=== PATIENT | female | born 1935 | race African-American/Black ===

== ENCOUNTER 2017-03-26 23:04 | Inpatient (IN) | payer OTHER ==
[~2017-03-26] VITALS: Ht 154.9 cm; Wt 103.9 kg
[2017-03-26 23:43] LABS: BASO # 0.1 x10^3/uL (0.0-0.2); BASO % 1 % (0-3); EOS % 3 % (0-3); HEMATOCRIT 41.5 % (36.0-47.0); HEMOGLOBIN 13.6 g/dL (12.0-15.5); LYMPH % 62 % (24-48); MEAN CORPUSCULAR HEMOGLOBIN 30 pg (25-35); MEAN CORPUSCULAR HGB CONC 33 g/dL (31-37); MEAN CORPUSCULAR VOLUME 93 fL (79-100); MONO % 5 % (0-9); NEUT % 30 % (31-73); PLATELET COUNT 327 x10^3/uL (140-400); RED BLOOD COUNT 4.48 x10^6/uL (3.50-5.40); RED CELL DISTRIBUTION WIDTH 14.5 % (11.5-14.5); WHITE BLOOD COUNT 11.3 x10^3/uL (4.0-11.0)
[2017-03-26 23:50] LABS: HCO3 ABG 24 mmol/L (21-28); PCO2 ABG 52 mmHg (35-46); PH ABG 7.29 (7.35-7.45); PO2 ABG 379 mmHg (65-108); SAT O2 ABG 99 % (92-99)
[2017-03-26 23:51] LABS: CALCIUM 8.4 mg/dL (8.5-10.1); GFR 64.4
[2017-03-26 23:56] LABS: ALBUMIN 3.2 g/dL (3.4-5.0); ALBUMIN/GLOBULIN RATIO 0.7 (1.0-1.7); TOTAL BILIRUBIN 0.4 mg/dL (0.2-1.0); TOTAL PROTEIN 7.8 g/dL (6.4-8.2)
[2017-03-26 23:57] LABS: FIO2 ABG 70
[2017-03-27] VITALS (24 sets, daily range): BP systolic 114–198; BP diastolic 75–110
[2017-03-27 00:13] LABS: % EOS 3 % (0-5); PLT ESTIMATE ADEQUATE (ADEQUATE)
[2017-03-27] MEDS ORDERED: MIDAZOLAM HCL/PF 5 MG/5 ML VIAL. ONE (00:13)
[2017-03-27] MEDS ORDERED: PROPOFOL 50 ML IV ONE ×4 (00:14→02:00)
[2017-03-27] MEDS ORDERED: PROPOFOL 10 MG/ML (20ML) VIAL. IV ONE ×2 (00:15)
--- NOTE | 2017-03-27 01:00 | ED.ADGEN ---
Adult General Chief Complaint Chief Complaint: DYSPNEA/RESPIRATOY DISTRESS HPI HPI Patient is a 83 year old woman, who presents to the emergency department via EMS as a Taina Zamudio in respiratory failure. Per EMS report, they were called to the patient's home with report of respiratory distress. Upon arrival, they found the patient had oxygen saturations in the 50s to the 70s, and responsive only to painful stimuli. Patient was initiated on BiPAP, and transported to the emergency department emergently. Upon arrival to the emergency part, patient is unresponsive to verbal and tactile stimuli, with rapid abdominal respirations, oxygen saturation is 99% on a breathing treatment with bag valve respirations for a cyst, blood pressures are 200s over 120s, heart rate is in the 130s. Patient emergently intubated upon arrival to the emergency department using rapid sequence intubation secondary to respiratory failure with altered mental status. EMS states they believe the patient's family is en route to the ED, they are uncertain who called them to the patient's home, it may have been either "a or a son". Patient does not have any identifying information with her, and EMS do not have a confirmation of the patient's name or additional history, although they do believe that she has history of COPD and possibly CHF. Blood glucose en route was 356. Review of Systems Review of Systems Unable to assess. Current Medications Current Medications Current Medications Medications (Trade) Dose Ordered Sig/Srikanth Start Time Stop Time Status Last Admin Dose Admin Fentanyl Citrate 30 ml @ 0 mls/hr CONT PRN PRN 03/26/17 23:30 Midazolam HCl (Versed) 5 mg STK-MED ONCE 03/27/17 00:13 03/27/17 00:14 DC Propofol 50 ml @ As Directed STK-MED ONCE 03/27/17 00:14 03/27/17 00:15 DC Propofol (Diprivan) 200 mg 1X ONCE 03/27/17 00:15 03/27/17 00:16 DC Allergies Allergies Allergies Coded Allergies Type Severity Reaction Last Updated Verified No Known Drug Allergies 03/27/17 No Physical Exam Physical Exam Constitutional: Well developed, well nourished, respiratory failure, unresponsive.. [] HENT: Normocephalic, atraumatic, bilateral external ears normal, oropharynx moist, no oral exudates, nose normal. [] Eyes: PERRLA, EOMI, conjunctiva normal, no discharge. [] Neck: Normal range of motion, no tenderness, supple, no stridor. [] Cardiovascular: Patient with soft regular heart rate, S1, S2, no S3. No rubs or gallops. Lungs & Thorax: Patient with coarse breath sounds, with rales noted diffusely bilaterally, also with wheezing.asses. [] Abdomen: Bowel sounds normal, soft, no tenderness, no masses, no pulsatile m Skin: Warm, dry, no erythema, no rash. [] Back: No tenderness, no CVA tenderness. [] Extremities: No tenderness, no cyanosis, no clubbing, ROM intact, no edema. [] Neurologic: GCS of 3 Psychologic: Unable to assess significant clinical condition Current Patient Data Vital Signs Vital Signs Date Time Temp Pulse Resp B/P (MAP) Pulse Ox O2 Delivery O2 Flow Rate FiO2 03/26/17 23:35 98 Ventilator Lab Values Laboratory Tests Test 03/26/17 23:24 03/26/17 23:31 White Blood Count 11.3 x10^3/uL (4.0-11.0) H Red Blood Count 4.48 x10^6/uL (3.50-5.40) Hemoglobin 13.6 g/dL (12.0-15.5) Hematocrit 41.5 % (36.0-47.0) Mean Corpuscular Volume 93 fL (79-100) Mean Corpuscular Hemoglobin 30 pg (25-35) Mean Corpuscular Hemoglobin Concent 33 g/dL (31-37) Red Cell Distribution Width 14.5 % (11.5-14.5) Platelet Count 327 x10^3/uL (140-400) Neutrophils (%) (Auto) 30 % (31-73) L Lymphocytes (%) (Auto) 62 % (24-48) H Monocytes (%) (Auto) 5 % (0-9) Eosinophils (%) (Auto) 3 % (0-3) Basophils (%) (Auto) 1 % (0-3) Neutrophils # (Auto) 3.4 x10^3uL (1.8-7.7) Lymphocytes # (Auto) 7.0 x10^3/uL (1.0-4.8) H Monocytes # (Auto) 0.5 x10^3/uL (0.0-1.1) Eosinophils # (Auto) 0.3 x10^3/uL (0.0-0.7) Basophils # (Auto) 0.1 x10^3/uL (0.0-0.2) Segmented Neutrophils % 28 % (35-66) L Band Neutrophils % 1 % (0-9) Lymphocytes % 64 % (24-48) H Monocytes % 4 % (0-10) Eosinophils % 3 % (0-5) Platelet Estimate Adequate (ADEQUATE) Sodium Level 136 mmol/L (136-145) Potassium Level 4.0 mmol/L (3.5-5.1) Chloride Level 102 mmol/L (98-107) Carbon Dioxide Level 23 mmol/L (21-32) Anion Gap 11 (6-14) Blood Urea Nitrogen 11 mg/dL (7-20) Creatinine 1.0 mg/dL (0.6-1.0) Estimated GFR (Cockcroft-Gault) 64.4 BUN/Creatinine Ratio 11 (6-20) Glucose Level 383 mg/dL (70-99) H Lactic Acid Level 4.2 mmol/L (0.4-2.0) *H Calcium Level 8.4 mg/dL (8.5-10.1) L Total Bilirubin 0.4 mg/dL (0.2-1.0) Aspartate Amino Transferase (AST) 64 U/L (15-37) H Alanine Aminotransferase (ALT) 69 U/L (14-59) H Alkaline Phosphatase 90 U/L (46-116) Troponin I Quantitative 0.041 ng/mL (0.000-0.055) NK-Bso-X-Type Natriuretic Peptide 138 pg/mL (0-449) Total Protein 7.8 g/dL (6.4-8.2) Albumin 3.2 g/dL (3.4-5.0) L Albumin/Globulin Ratio 0.7 (1.0-1.7) L O2 Saturation 99 % (92-99) Arterial Blood pH 7.29 (7.35-7.45) L Arterial Blood pCO2 at Patient Temp 52 mmHg (35-46) H Arterial Blood pO2 at Patient Temp 379 mmHg (65-108) H Arterial Blood HCO3 24 mmol/L (21-28) Arterial Blood Base Excess -3 mmol/L (-3-3) FiO2 70 Laboratory Tests 03/26/17 23:24 Laboratory Tests 03/26/17 23:24 EKG EKG EC: Heart rate 129 beats/minute, sinus tachycardia, QTC of 485, [place] 1:30, QRS of 78, patient with contour normality is noted in the anterior and lateral leads, does not meet STEMI criteria. As interpreted by me.[] Radiology/Procedures Radiology/Procedures Chest x-ray: One view:[Patient with ET tube in place, approximately 4 cm above the stanislwa, OG tube in place, terminating in the stomach, patient is mildly rotated, increased initial markings noted in the right lung base, and in the left upper lungs, however no significant infiltrates, effusions, pneumothorax, soft tissue or bony abnormalities identified. As interpreted by me. Course & Med Decision Making Course & Med Decision Making Pertinent Labs and Imaging studies reviewed. (See chart for details) Family not present, patient was intubated emergently as stated for respiratory failure. First pass success placement of ET tube per accompanying note. Confirmed placement x-ray, patient hypertensive, 200s over 120s, with heart rates in the 120s, remains unresponsive, propofol was initiated, oxygen saturations remained in the upper 90s to 100s. Initial ABG revealed acidosis with a pH of 7.25, CO2 of 52, and oxygen greater than 300. Patient's ventilatory settings were adjusted, remaining AC with a title volume of 500, oxygen saturation of 40% from 70%, and rested for rate of 24 from 20, with a PEEP of 5. Repeat ABG reveals a pH of 7.43, PCO2 of 34, PO2 of 92, bicarbonate 22, with a base excess of -1. Patient has become more alert, is moving all extremities, tracking with eyes, although she is not cooperating or following commands, and due to agitation was placed in a propofol infusion to keep patient comfortable and sedated during stabilization of her rested for a failure. Oxygen saturations remained in the mid upper 90s with then adjustments , blood pressures are 170s over 80s, heart rate is in the low 100s. Patient with leukocytosis of 13.3, with mild shift and 1% bands, no obvious infiltrates noted on chest x-ray, after discussion with Dr. Murry of internal medicine, will cover with a dose of healthcare associated pneumonia antibiotics, as we have just obtain the patient's name, and is revealed that she was admitted last month, additionally patient is to receive a DuoNeb's, and Solu-Medrol. Initial active a 4.2, as patient was profoundly hypoxic into, this is on surprising, repeat lactic is ordered, along with repeat troponin, initial set is negative and the ED. Patient with a glucose in the 300s as stated, initiated on insulin protocol. CT of the head is unremarkable, as stated blood pressure is improved, and patient is stable on propofol infusion per protocol, at time of transfer to the ICU. Bridge orders entered per discussion, with consultation for pulmonary critical care. Dragon Disclaimer Dragon Disclaimer This electronic medical record was generated, in whole or in part, using a voice recognition dictation system. Departure Impression: Primary Impression: Respiratory failure Additional Impressions: COPD (chronic obstructive pulmonary disease) Hypoxia Lactic acidosis Disposition: ADMITTED INPATIENT Admitting Physician: Other Condition: IMPROVED Intubation Procedure Intub Indication: Respiratory failure Consent: Unable to give consent due to emergent nature. Medications Used: see nursing note Procedure: Rapid state with intubation was performed using vecuronium and etomidate. Please see nursing notes for exact dosages and times. The patient was placed in the appropriate position. Intubation was performed by the supervisor assembly stock student using the Gildescope for direct visualization endotracheal tube first pass placement of a 7.5 mm ET tube, 19 cm at the teeth. [ET SECURE] . Initial confirmation of placement included bilateral breath sounds, tube fogging, adequate chest rise, adequate pulse oximetry reading and positive CO2 color change. An OG tube was placed. A chest x-ray to verify correct placement of the ET and OG tubes showed appropriate tube position. The patient tolerated the procedure well. Complications: none. Critical Care Time Critical care time was [25 minutes exclusive of procedures. Problem Qualifiers SUREKHA ALEGRE DO Mar 27, 2017 01:00
[2017-03-27 01:15] LABS: OBC FLU VALID
--- NOTE | 2017-03-27 01:23 | RAD ---
INDICATION: ams COMPARISON: None. TECHNIQUE: Axial CT images obtained through the head without intravenous contrast. One or more of the following individualized dose reduction techniques were utilized for this examination: 1. Automated exposure control; 2. Adjustment of the mA and/or kV according to patient size; 3. Use of iterative reconstruction technique. FINDINGS: No intracranial hemorrhage. No midline shift. Basal cisterns patents. Ventricles and sulci are globally prominent. No acute osseous abnormality. Nasal septal bowing to the left. Scattered foci of low attenuation within the white matter. IMPRESSION: 1. No acute intracranial hemorrhage. 2. Scattered regions of low attenuation within the white matter. Non-specific in nature but frequently secondary to chronic small vessel ischemic disease. 3. Prominence of ventricles and sulci which is frequently secondary to age related volume loss. 4. There is angulation of the left zygomatic arch. Could be secondary to an old fracture unless there is current pain in the region to suggest acute causes. Electronically signed by: William Glasgow MD (03/27/2017 1:19 AM) [facility]
[2017-03-27 01:40] LABS: BILIRUBIN,URINE NEGATIVE (NEG); GLUCOSE,URINE >=1000 mg/dL (NEG); NITRITE,URINE NEGATIVE (NEG); PH,URINE 5.5; PROTEIN,URINE >=300 mg/dL (NEG-TRACE); UROBILINOGEN,URINE 0.2 mg/dL (0.2 mg/dL)
[2017-03-27 01:46] LABS: BACTERIA,URINE MODERATE /HPF (0-FEW); SQUAMOUS EPITHELIAL CELL,UR MOD /LPF
[2017-03-27 01:47] LABS: BARBITURATES NEG (NEG); BENZODIAZEPINES POS (NEG); CANNABINOIDS NEG (NEG); COCAINE NEG (NEG); METHADONE NEG (NEG); OPIATES NEG (NEG); PHENCYCLIDINE NEG (NEG)
[2017-03-27 01:56] LABS: HCO3 ABG 22 mmol/L (21-28); PCO2 ABG 34 mmHg (35-46); PH ABG 7.43 (7.35-7.45); PO2 ABG 92 mmHg (65-108); SAT O2 ABG 97 % (92-99)
[2017-03-27] MEDS ORDERED: DEXTROSE 50% 25 GM / 50ML DISP.SYRIN. IV PRN (02:15)
[2017-03-27] MEDS ORDERED: ONDANSETRON PF 4 MG/2 ML VIAL. IV PRN (02:15)
[2017-03-27 02:24] LABS: FIO2 ABG 35
[2017-03-27] MEDS ORDERED: CEFEPIME HCL 2 GM in IV NORMAL SALINE 100ML 100 ML IV ONE (02:30)
[2017-03-27] MEDS: IPRATRPIUM/ALBUTEROL 0.5/2.5MG 3 ML NEBU. NEB SCH ×5 (02:30→19:43)
[2017-03-27] MEDS ORDERED: methylPREDNISolone SOD SUCC PF 125 MG/2 ML VIAL. IV ONE ×2 (02:30→16:00)
[2017-03-27] MEDS: IV NORMAL SALINE 1000ML BAG 1,000 ML IV SCH ×3 (02:45→20:03)
[2017-03-27] MEDS ORDERED: IV NORMAL SALINE 1000ML BAG 1,000 ML IV ONE (03:00)
[2017-03-27] MEDS ORDERED: PNEUMOCOCCAL VAX SCREEN BY RX. MC PRN (03:15)
[2017-03-27] MEDS ORDERED: INFLUENZA VAX SCREEN BY RX. MC PRN (03:15)
[2017-03-27] MEDS ORDERED: VANCOMYCIN 2 GM in IV NORMAL SALINE 500ML BAG 500 ML IV ONE (03:30)
[2017-03-27] MEDS: PROPOFOL 100 ML IV PRN ×5 (03:40→20:16)
--- NOTE | 2017-03-27 04:49 | RAD ---
INDICATION: ET placement COMPARISON: None. FINDINGS: Single frontal view of chest obtained. Endotracheal tube at expected location of midthoracic trachea. Enteric tube seen coursing below diaphragm. Left lung base is obscured secondary to overlying cardiac silhouette and portable technique. Degenerative changes the spine. Calcific atherosclerosis. No definite focal airspace consolidation elsewhere in the lungs. IMPRESSION: Endotracheal tube at expected location of mid thoracic trachea. Electronically signed by: William Glasgow MD (03/27/2017 4:45 AM) [facility]
[2017-03-27] MEDS ORDERED: VECURONIUM BOLUS 10 MG VIAL. IV ONE (05:29)
[2017-03-27] MEDS ORDERED: ETOMIDATE 20 MG/10 ML VIAL. IV ONE (05:29)
[2017-03-27] MEDS: VANCOMYCIN PER PHARMACY MC PRN ×2 (05:41→09:26)
--- NOTE | 2017-03-27 06:44 | RAD ---
INDICATION: og placement COMPARISON: None. IMPRESSION: Single frontal view of upper abdomen obtained. There is a single enteric tube seen with tip at left upper quadrant of abdomen at expected location of stomach. Air scattered throughout large and small bowel in a nonspecific pattern. Degenerative changes spine. Electronically signed by: William Glasgow MD (03/27/2017 6:40 AM) [facility]
--- NOTE | 2017-03-27 06:49 | EKG ---
[facility] [address] [place] [address] Test Date: 2017-03-26 Test Time: 23:24:37 Pat Name: CHRIS JENNINGS Department: Room: 105 1 Gender: F Area Captain: : 1935 Requested By: SUREKHA ALEGRE Order Number: [id number] Reading MD: Ashlee Richards Measurements Intervals [place] Rate: 129 P: -119 SD: 130 QRS: -26 QRSD: 78 T: 68 QT: 330 QTc: 485 Interpretive Statements SUPRAVENTRICULAR RHYTHM LEFTWARD AXIS QRS(T) CONTOUR ABNORMALITY CANNOT RULE OUT ANTEROSEPTAL MYOCARDIAL DAMAGE T ABNORMALITY IN HIGH LATERAL LEADS Electronically Signed On 03-30-2017 15:37:16 CDT by Ashlee Richards
--- NOTE | 2017-03-27 07:18 | EKG ---
[facility] [address] [place] [address] Test Date: 2017-03-27 Test Time: 07:22:28 Pat Name: CHRIS JENNINGS Department: Room: [facility] 1 Gender: F Organizational Psychologist: NOAH : 1935 Requested By: SUREKHA ALEGRE Order Number: [id number] Reading MD: Ashlee Richards Measurements Intervals [place] Rate: 88 P: 63 VT: 200 QRS: 23 QRSD: 84 T: -176 QT: 420 QTc: 512 Interpretive Statements SINUS RHYTHM T ABNORMALITY IN ANTEROLATERAL LEADS INFEROLATERAL LEADS PROLONGED QT ABNORMAL ECG Electronically Signed On 03-30-2017 15:38:30 CDT by Ashlee Richards
[2017-03-27 07:54] LABS: HCO3 ABG 22 mmol/L (21-28); PCO2 ABG 32 mmHg (35-46); PH ABG 7.44 (7.35-7.45); PO2 ABG 119 mmHg (65-108); SAT O2 ABG 98 % (92-99)
[2017-03-27 07:57] LABS: FIO2 ABG 35
[2017-03-27] MEDS: INSULIN ASPART 300 UNITS/3 ML INSULN.PEN SQ SCH ×3 (08:00→16:55)
--- NOTE | 2017-03-27 08:45 | PDOC ---
Infectious Disease Note Vital Sign Vital Signs Vital Signs Date Time Temp Pulse Resp B/P (MAP) Pulse Ox O2 Delivery O2 Flow Rate FiO2 03/27/17 07:58 100 Ventilator 03/27/17 06:00 89 20 114/81 (92) 03/27/17 04:00 15.0 03/27/17 04:00 98.5 98.5 Labs Lab Laboratory Tests Test 03/26/17 23:24 03/26/17 23:31 03/27/17 00:49 03/27/17 01:20 White Blood Count 11.3 x10^3/uL (4.0-11.0) Red Blood Count 4.48 x10^6/uL (3.50-5.40) Hemoglobin 13.6 g/dL (12.0-15.5) Hematocrit 41.5 % (36.0-47.0) Mean Corpuscular Volume 93 fL (79-100) Mean Corpuscular Hemoglobin 30 pg (25-35) Mean Corpuscular Hemoglobin Concent 33 g/dL (31-37) Red Cell Distribution Width 14.5 % (11.5-14.5) Platelet Count 327 x10^3/uL (140-400) Neutrophils (%) (Auto) 30 % (31-73) Lymphocytes (%) (Auto) 62 % (24-48) Monocytes (%) (Auto) 5 % (0-9) Eosinophils (%) (Auto) 3 % (0-3) Basophils (%) (Auto) 1 % (0-3) Neutrophils # (Auto) 3.4 x10^3uL (1.8-7.7) Lymphocytes # (Auto) 7.0 x10^3/uL (1.0-4.8) Monocytes # (Auto) 0.5 x10^3/uL (0.0-1.1) Eosinophils # (Auto) 0.3 x10^3/uL (0.0-0.7) Basophils # (Auto) 0.1 x10^3/uL (0.0-0.2) Segmented Neutrophils % 28 % (35-66) Band Neutrophils % 1 % (0-9) Lymphocytes % 64 % (24-48) Monocytes % 4 % (0-10) Eosinophils % 3 % (0-5) Platelet Estimate Adequate (ADEQUATE) Sodium Level 136 mmol/L (136-145) Potassium Level 4.0 mmol/L (3.5-5.1) Chloride Level 102 mmol/L (98-107) Carbon Dioxide Level 23 mmol/L (21-32) Anion Gap 11 (6-14) Blood Urea Nitrogen 11 mg/dL (7-20) Creatinine 1.0 mg/dL (0.6-1.0) Estimated GFR (Cockcroft-Gault) 64.4 BUN/Creatinine Ratio 11 (6-20) Glucose Level 383 mg/dL (70-99) Lactic Acid Level 4.2 mmol/L (0.4-2.0) Calcium Level 8.4 mg/dL (8.5-10.1) Total Bilirubin 0.4 mg/dL (0.2-1.0) Aspartate Amino Transf (AST/SGOT) 64 U/L (15-37) Alanine Aminotransferase (ALT/SGPT) 69 U/L (14-59) Alkaline Phosphatase 90 U/L (46-116) Troponin I Quantitative 0.041 ng/mL (0.000-0.055) DB-Uco-H-Type Natriuretic Peptide 138 pg/mL (0-449) Total Protein 7.8 g/dL (6.4-8.2) Albumin 3.2 g/dL (3.4-5.0) Albumin/Globulin Ratio 0.7 (1.0-1.7) O2 Saturation 99 % (92-99) Arterial Blood pH 7.29 (7.35-7.45) Arterial Blood pCO2 at Patient Temp 52 mmHg (35-46) Arterial Blood pO2 at Patient Temp 379 mmHg (65-108) Arterial Blood HCO3 24 mmol/L (21-28) Arterial Blood Base Excess -3 mmol/L (-3-3) FiO2 70 Influenza Type A Antigen Negative (NEGATIVE) Influenza Type B Antigen Negative (NEGATIVE) Urine Collection Type Unknown Urine Color Yellow Urine Clarity Clear Urine pH 5.5 Urine Specific [place] 1.020 Urine Protein >=300 mg/dL (NEG-TRACE) Urine Glucose (UA) >=1000 mg/dL (NEG) Urine Ketones (Stick) Negative mg/dL (NEG) Urine Blood Small (NEG) Urine Nitrite Negative (NEG) Urine Bilirubin Negative (NEG) Urine Urobilinogen Dipstick 0.2 mg/dL (0.2 mg/dL) Urine Leukocyte Esterase Negative (NEG) Urine RBC 6-10 /HPF (0-2) Urine WBC 1-4 /HPF (0-4) Urine Squamous Epithelial Cells Mod /LPF Urine Amorphous Sediment Present /HPF Urine Bacteria Moderate /HPF (0-FEW) Urine Hyaline Casts Few /HPF Urine Granular Casts Occasional /HPF Urine Mucus Mod /LPF Urine Opiates Screen Neg (NEG) Urine Methadone Screen Neg (NEG) Urine Barbiturates Neg (NEG) Urine Phencyclidine Screen Neg (NEG) Urine Amphetamine/Methamphetamine Neg (NEG) Urine Benzodiazepines Screen Pos (NEG) Urine Cocaine Screen Neg (NEG) Urine Cannabinoids Screen Neg (NEG) Urine Ethyl Alcohol Neg (NEG) Test 03/27/17 01:50 03/27/17 03:55 03/27/17 07:50 O2 Saturation 97 % (92-99) 98 % (92-99) Arterial Blood pH 7.43 (7.35-7.45) 7.44 (7.35-7.45) Arterial Blood pCO2 at Patient Temp 34 mmHg (35-46) 32 mmHg (35-46) Arterial Blood pO2 at Patient Temp 92 mmHg (65-108) 119 mmHg (65-108) Arterial Blood HCO3 22 mmol/L (21-28) 22 mmol/L (21-28) Arterial Blood Base Excess -1 mmol/L (-3-3) -2 mmol/L (-3-3) FiO2 35 35 Lactic Acid Level 3.4 mmol/L (0.4-2.0) Objective Assessment Sepsis Lactic acidosis Respiratory failure Hypoxia Leukocytosis Encephalopathy Plan Plan of Care check cultures vanc , cefepime ct chest, abd and pelvis supportive care MICHAEL ARREAGA MD Mar 27, 2017 08:45
[2017-03-27] MEDS: CEFEPIME HCL 2 GM in IV NORMAL SALINE 100ML 100 ML IV SCH ×2 (09:00→20:17)
[2017-03-27] MEDS ORDERED: HEPARIN for IV BOLUS 10,000 UNIT/10 ML VIAL. IV PRN (09:15)
[2017-03-27] MEDS ORDERED: HEPARIN 25,000UTS/500ML PREMIX 500 ML IV PRN (09:15)
--- NOTE | 2017-03-27 09:15 | CONS ---
DATE OF CONSULTATION: 03/27/2017 REQUESTING PHYSICIAN: Suzette Murry MD REASON FOR CONSULTATION: Sepsis. HISTORY OF PRESENT ILLNESS: This is an 82-year-old -[place] female who was found down evidently, family called 911. The patient was found to be hypoxic and responded to painful stimuli only. The patient initially was treated with BiPAP and then was intubated. The patient appears to have never been here before and so not much history is obtainable since there is no family member available to the ER or here. Patient was noted to have lactic acidosis, leukocytosis. Patient was started on vancomycin and cefepime intubated on a ventilator, did not require any vasopressor support. Some fluid was given, but then with a questionable history of CHF, it was stopped. The patient is currently sedated on a ventilator. No nausea, vomiting, diarrhea noted. The patient had a CAT scan of the head which was unremarkable. Chest x-ray unremarkable. Urinalysis was not suggestive of any significant infection. PAST MEDICAL HISTORY: There may be some history of COPD and possibly CHF and diabetes, but not much information is available. SOCIAL HISTORY: Not available. ALLERGIES: Listed as allergic to SULFA AND PIPERACILLIN unclear whether that is true or not and how they got it. CURRENT MEDICATIONS: Reviewed. The patient is on vancomycin and cefepime. REVIEW OF SYSTEMS: Unable to do other than what I mentioned in the HPI through the patient's nurse. PHYSICAL EXAMINATION: GENERAL: Sedated, orally intubated female, not in any distress. VITAL SIGNS: Temperature 98.5, pulse 93, respirations 20, blood pressure 137/75. HEENT: Both pupils are round and reacting. No conjunctival lesion. Mouth: Not much mouth can be visualized secondary to oral intubation. NECK: Supple, no JVP, no lymphadenopathy. LUNGS: Clear. HEART: S1, S2 regular. ABDOMEN: Benign. EXTREMITIES: No edema, cyanosis. SKIN: Unremarkable for any skin breakdown, cyanosis and/or rash. EXTREMITIES: The patient had been evidently moving all the extremities before intubation. LABORATORY DATA: White count is 11.3, hemoglobin 13.6, platelets are normal. BUN and creatinine is normal. Electrolytes are unremarkable other than glucose is 383. Lactic acid 4.2. AST 64, ALT 69. BNP only 138. Troponin 0.041. The drug screen had shown benzodiazepine positive. Urinalysis is unremarkable for any significant infection. Influenza screen was negative. CT head was unremarkable. Chest x-ray is unremarkable. KUB was unremarkable. IMPRESSION: 1. Sepsis with lactic acidosis. Etiology of sepsis is unclear at this stage. There is no obvious pneumonia and/or urinary tract infection unless hydration may change that. Likely cardiac in origin with hypoperfusion. 2. Respiratory failure. 3. Encephalopathy. 4. Appears to have diabetes. 5. Maybe chronic obstructive pulmonary disease. 6. Leukocytosis. RECOMMENDATIONS: Agree with vancomycin and cefepime for the time being. We will check cultures and adjust. I will also get CT chest, abdomen and pelvis, supportive care, more hydration, cautious hydration and we will continue to follow. Thank you very much, Dr. Murry for giving me the opportunity to participate in this patient's care. MICHAEL ARREAGA MD DR: KENDRA/khloe JOB#: [id number] / [id number] DENA
--- NOTE | 2017-03-27 10:45 | PDOC2 ---
HUGO GALLAGHER IT SOFTWARE ENGINEER 03/27/17 1045: CARDIAC CONSULT DATE OF CONSULT Date of Consult DATE: 03/27/17 TIME: 10:26 REASON FOR CONSULT Reason for Consult: Elevated troponin REFERRING PHYSICIAN Referring Physician: Joe SOURCE Source: Chart review HISTORY OF PRESENT ILLNESS HISTORY OF PRESENT ILLNESS This is an 82 yo female admitted for noted unresponsiveness and hypoxia. Pt is presently intubated with mechanical ventilator. She was found by a person who possibly works for at home unresponsive and was noted with hypoxia per EMS. There was no notation of abnormal heart rhythms. There was no notation of incontinence nor resuscitation episodes. Upon arrival she remained hypoxia with bipap use initiating intubation and was also noted with uncontrolled HTN and tachycardic. There are no family member available to provide further details of her medical history. Per chart review she is positive for CHF and COPD but no confirmation of past CAD or CVA nor VTEs. Presently her BP is stable and no significant rhythm ectopies but noted with elevated troponin. PAST MEDICAL HISTORY Cardiovascular: CHF, HTN Pulmonary: COPD Musculoskeletal: Osteoarthritis (obesity) Endocrine: Diabetes (2) PAST SURGICAL HISTORY Past Surgical History unknown FAMILY HISTORY Family History: Family History Unknown SOCIAL HISTORY Social History unknown CURRENT MEDICATIONS CURRENT MEDICATIONS Current Medications Medications (Trade) Dose Ordered Sig/Srikanth Route PRN Reason Start Time Stop Time Status Last Admin Dose Admin Propofol 50 ml @ 0 mls/hr 1X ONCE IV 03/27/17 02:00 03/27/17 02:01 DC 03/27/17 00:19 Propofol 50 ml @ 0 mls/hr 1X ONCE IV 03/27/17 02:00 03/27/17 02:01 DC 03/27/17 01:13 Albuterol/ Ipratropium (Duoneb) 3 ml RTQID NEB 03/27/17 02:30 03/28/17 02:29 03/27/17 08:17 Cefepime HCl 2 gm/ Sodium Chloride 100 ml @ 200 mls/hr 1X ONCE IV 03/27/17 02:30 03/27/17 02:59 DC 03/27/17 02:45 Vancomycin HCl (Vanco Per Pharmacy) 1 each PRN DAILY PRN MC SEE COMMENTS 03/27/17 02:15 03/27/17 09:26 Sodium Chloride 1,000 ml @ 100 mls/hr Q10H IV 03/27/17 02:15 03/27/17 02:45 Sodium Chloride 1,000 ml @ 1,000 mls/hr 1X ONCE IV 03/27/17 03:00 03/27/17 03:59 DC 03/27/17 02:51 Propofol 100 ml @ 0 mls/hr CONT PRN IV SEE I/O RECORD 03/27/17 03:00 03/27/17 06:01 Vancomycin HCl 2 gm/Sodium Chloride 500 ml @ 250 mls/hr 1X ONCE IV 03/27/17 03:30 03/27/17 05:29 DC 03/27/17 04:30 Heparin Sodium/ Dextrose 500 ml @ 20 mls/hr CONT PRN IV SEE I/O RECORD 03/27/17 09:15 03/27/17 10:19 Heparin Sodium (Porcine) (Heparin Sodium) 2,650 unit PRN Q6HRS PRN IV FOR UFH LEVEL LESS THAN 0.2 03/27/17 09:15 03/27/17 10:13 ALLERGIES ALLERGIES: Coded Allergies: Sulfa (Sulfonamide Antibiotics) (Unverified Allergy, Intermediate, ) iodine (Unverified Allergy, Intermediate, 03/27/17) piperacillin (Unverified Allergy, Intermediate, 03/27/17) ROS Review of System unreliable, intubated PHYSICAL EXAM General: Other (sedated, intubated) HEENT: Atraumatic, Mucous membr. moist/pink Lungs: Other (diminished bases; intubated with mechanical ventilation) Heart: Regular rate (SR), Other (distant heart sounds) Abdomen: Soft, Other (obese) Extremities: No cyanosis, Other Skin: No breakdown Neuro: Other (sedated) Psych/Mental Status: Other (sedated) MUSCULOSKELETAL: Osteoarthritic changes both hands VITALS VITALS Vital Signs Date Time Temp Pulse Resp B/P (MAP) Pulse Ox O2 Delivery O2 Flow Rate FiO2 03/27/17 10:00 100 Ventilator 03/27/17 06:00 89 20 114/81 (92) 03/27/17 04:00 15.0 03/27/17 04:00 98.5 98.5 LABS Lab: Laboratory Tests Test 03/26/17 23:24 03/26/17 23:31 03/27/17 00:49 03/27/17 01:20 White Blood Count 11.3 x10^3/uL (4.0-11.0) Red Blood Count 4.48 x10^6/uL (3.50-5.40) Hemoglobin 13.6 g/dL (12.0-15.5) Hematocrit 41.5 % (36.0-47.0) Mean Corpuscular Volume 93 fL (79-100) Mean Corpuscular Hemoglobin 30 pg (25-35) Mean Corpuscular Hemoglobin Concent 33 g/dL (31-37) Red Cell Distribution Width 14.5 % (11.5-14.5) Platelet Count 327 x10^3/uL (140-400) Neutrophils (%) (Auto) 30 % (31-73) Lymphocytes (%) (Auto) 62 % (24-48) Monocytes (%) (Auto) 5 % (0-9) Eosinophils (%) (Auto) 3 % (0-3) Basophils (%) (Auto) 1 % (0-3) Neutrophils # (Auto) 3.4 x10^3uL (1.8-7.7) Lymphocytes # (Auto) 7.0 x10^3/uL (1.0-4.8) Monocytes # (Auto) 0.5 x10^3/uL (0.0-1.1) Eosinophils # (Auto) 0.3 x10^3/uL (0.0-0.7) Basophils # (Auto) 0.1 x10^3/uL (0.0-0.2) Segmented Neutrophils % 28 % (35-66) Band Neutrophils % 1 % (0-9) Lymphocytes % 64 % (24-48) Monocytes % 4 % (0-10) Eosinophils % 3 % (0-5) Platelet Estimate Adequate (ADEQUATE) Sodium Level 136 mmol/L (136-145) Potassium Level 4.0 mmol/L (3.5-5.1) Chloride Level 102 mmol/L (98-107) Carbon Dioxide Level 23 mmol/L (21-32) Anion Gap 11 (6-14) Blood Urea Nitrogen 11 mg/dL (7-20) Creatinine 1.0 mg/dL (0.6-1.0) Estimated GFR (Cockcroft-Gault) 64.4 BUN/Creatinine Ratio 11 (6-20) Glucose Level 383 mg/dL (70-99) Lactic Acid Level 4.2 mmol/L (0.4-2.0) Calcium Level 8.4 mg/dL (8.5-10.1) Total Bilirubin 0.4 mg/dL (0.2-1.0) Aspartate Amino Transf (AST/SGOT) 64 U/L (15-37) Alanine Aminotransferase (ALT/SGPT) 69 U/L (14-59) Alkaline Phosphatase 90 U/L (46-116) Troponin I Quantitative 0.041 ng/mL (0.000-0.055) MC-Ojb-R-Type Natriuretic Peptide 138 pg/mL (0-449) Total Protein 7.8 g/dL (6.4-8.2) Albumin 3.2 g/dL (3.4-5.0) Albumin/Globulin Ratio 0.7 (1.0-1.7) O2 Saturation 99 % (92-99) Arterial Blood pH 7.29 (7.35-7.45) Arterial Blood pCO2 at Patient Temp 52 mmHg (35-46) Arterial Blood pO2 at Patient Temp 379 mmHg (65-108) Arterial Blood HCO3 24 mmol/L (21-28) Arterial Blood Base Excess -3 mmol/L (-3-3) FiO2 70 Influenza Type A Antigen Negative (NEGATIVE) Influenza Type B Antigen Negative (NEGATIVE) Urine Collection Type Unknown Urine Color Yellow Urine Clarity Clear Urine pH 5.5 Urine Specific [place] 1.020 Urine Protein >=300 mg/dL (NEG-TRACE) Urine Glucose (UA) >=1000 mg/dL (NEG) Urine Ketones (Stick) Negative mg/dL (NEG) Urine Blood Small (NEG) Urine Nitrite Negative (NEG) Urine Bilirubin Negative (NEG) Urine Urobilinogen Dipstick 0.2 mg/dL (0.2 mg/dL) Urine Leukocyte Esterase Negative (NEG) Urine RBC 6-10 /HPF (0-2) Urine WBC 1-4 /HPF (0-4) Urine Squamous Epithelial Cells Mod /LPF Urine Amorphous Sediment Present /HPF Urine Bacteria Moderate /HPF (0-FEW) Urine Hyaline Casts Few /HPF Urine Granular Casts Occasional /HPF Urine Mucus Mod /LPF Urine Opiates Screen Neg (NEG) Urine Methadone Screen Neg (NEG) Urine Barbiturates Neg (NEG) Urine Phencyclidine Screen Neg (NEG) Urine Amphetamine/Methamphetamine Neg (NEG) Urine Benzodiazepines Screen Pos (NEG) Urine Cocaine Screen Neg (NEG) Urine Cannabinoids Screen Neg (NEG) Urine Ethyl Alcohol Neg (NEG) Test 03/27/17 01:50 03/27/17 03:55 03/27/17 07:50 03/27/17 08:15 O2 Saturation 97 % (92-99) 98 % (92-99) Arterial Blood pH 7.43 (7.35-7.45) 7.44 (7.35-7.45) Arterial Blood pCO2 at Patient Temp 34 mmHg (35-46) 32 mmHg (35-46) Arterial Blood pO2 at Patient Temp 92 mmHg (65-108) 119 mmHg (65-108) Arterial Blood HCO3 22 mmol/L (21-28) 22 mmol/L (21-28) Arterial Blood Base Excess -1 mmol/L (-3-3) -2 mmol/L (-3-3) FiO2 35 35 Lactic Acid Level 3.4 mmol/L (0.4-2.0) Troponin I Quantitative 1.106 ng/mL (0.000-0.055) ASSESSMENT/PLAN ASSESSMENT/PLAN 1. Acute respiratory failure with COPD and suspecting SOLITARIO. Pulmonary following 2. Sepsis: ID following 3. Accelerated HTN: better likely from propofol 4. NSTEMI: Troponin 1.1. EKG with diffuse ST-T wave changes. 5. Suspecting DM2 with nephropathy 6. Obesity 7. Acute on chronic CHF likely with combined systolic/diastolic Recommendations 1. Unknown duration of unresponsiveness. Heparin per protocol. ASA. 2. Lipid panel, TSH, TTE, Mg, CMP, trend troponin 3. Will reeval BP med needs pending diagnostics. Labetolol IV PRN 4. Will need LHC, will discuss with primary sweatband decorating machine operator. 5. No family available, will try to contact son once number is available. Addendum [phone] Notified Cheo Tyson, pt daughter, via phone [phone]. Discussed with her risks and benefits in regards to LHC and agreeable to proceed. Further conversation with her noted that pt has been having more SOA recently. No notable CP and pt has no known hx of CAD. Problems: BYRON MCKENZIE MD 03/27/17 1328: CARDIAC CONSULT ALLERGIES ALLERGIES: Coded Allergies: Sulfa (Sulfonamide Antibiotics) (Unverified Allergy, Intermediate, ) iodine (Unverified Allergy, Intermediate, 03/27/17) piperacillin (Unverified Allergy, Intermediate, 03/27/17) ASSESSMENT/PLAN ASSESSMENT/PLAN Pt. seen and examined. Agree with above TOLL TESTBOARD WORKER note. 82 y.o woman with acute hypoxic resp failure and syncope with echo revealing significant LV dysfunction. Plan for cardiac cath as noted above. Will follow. Poor prognosis. Problems: HUGO GALLAGHER APRN Mar 27, 2017 10:45 BYRON MCKENZIE MD Mar 27, 2017 13:28
[2017-03-27] MEDS ORDERED: LIDOCAINE 1% / SOD BICARB 8.4% 20 ML VIAL. IJ ONE ×2 (10:50→11:00)
--- NOTE | 2017-03-27 11:42 | HP ---
ADMIT DATE: 03/27/2017 CHIEF COMPLAINT: Respiratory failure. HISTORY OF PRESENT ILLNESS: The patient is a pleasant elderly female who presented to the ER last night as a Taina Zamudio; we did not know what her name was. Basically she had developed respiratory failure, somebody called EMS. When she got to the ER, she was emergently intubated using rapid intubation sequence secondary to severe respiratory failure with sats in the 50s. She has now been admitted to the ICU where she is on the vent. PAST MEDICAL HISTORY: Unknown, but we suspect she has chronic obstructive pulmonary disease and previous heart failure. ALLERGIES: SULFA, IODINE AND PIPERACILLIN. FAMILY HISTORY: Coronary artery disease. SOCIAL HISTORY: We believe she used to smoke, we are not sure about drinking or drugs. MEDICATIONS: Reviewed. REVIEW OF SYSTEMS: Unobtainable, the patient is on the vent. PHYSICAL EXAMINATION: VITAL SIGNS: Temperature afebrile, pulse 70, respirations 24, she is currently set at 20, but she is a little agitated; blood pressure 114/81, O2 sat 100%. She is on the vent with 35% oxygen (settings are as follows: AC 20, 550, 35%, 5 of PEEP). HEART: Distant S1, S2. LUNGS: Coarse, some crackles. ABDOMEN: Soft, obese. Decreased bowel sounds. EXTREMITIES: 1+ edema. SKIN: No rashes. ENDOCRINE: No thyromegaly. LYMPHATICS: No cervical nodes. HEMATOPOIETIC: No bruising. LABORATORY DATA: White count 11, hemoglobin 13.6, platelets 327. Electrolytes are pending. Lactic acid was high at 4.2, is now down to 3.4. BNP is normal at 138. Troponin is high at 1.106, last night it was 0.041. Drug screen positive for benzos. Urinalysis, moderate bacteria, but she also has lot of squamous epithelial cells. Her leukocyte esterase is negative. She has a small amount of blood. CT of the head, no acute hemorrhage. She does have some small vessel disease and volume loss. Chest x-ray: ET tube is in place. KUB, nonspecific bowel gas pattern. ASSESSMENT AND PLAN: Respiratory failure with elevated troponin. Suspect possible cardiac event. The patient has been admitted to the ICU on the ventilator. We will consult Cardiology and Pulmonary Medicine. Daily CBC, BMP, serial cardiac enzymes, serial EKGs, DuoNeb. We have her on a heparin drip. PROGNOSIS: Guarded. DICK CHAMBERLAIN DO DR: JUAN CARLOS/khloe JOB#: [id number] / [id number]
[2017-03-27 11:45] LABS: ALBUMIN/GLOBULIN RATIO 0.9 (1.0-1.7); CALCIUM 8.2 mg/dL (8.5-10.1); CHOLESTEROL/HDL RATIO 4.4; CREATININE 0.8 mg/dL (0.6-1.0); GFR 83.5; MAGNESIUM 1.7 mg/dL (1.8-2.4); POTASSIUM 4.2 mmol/L (3.5-5.1); TOTAL BILIRUBIN 0.7 mg/dL (0.2-1.0); TOTAL PROTEIN 6.4 g/dL (6.4-8.2)
--- NOTE | 2017-03-27 11:46 | CARD ---
APPROVED REPORT EXAM: Two-dimensional and M-mode echocardiogram with Doppler and color Doppler. Other Information Quality : Technically Limited Rhythm : NSRTechnically limited study due to body habitus and positioning. INDICATION Congestive Heart Failure Elevated troponin level 2D DIMENSIONS Left Atrium(2D)2.6 (1.6-4.0cm)IVSd1.3 (0.7-1.1cm) Aortic Root(2D)2.7 (2.0-3.7cm)LVDd4.8 (3.9-5.9cm) LVOT Diameter2.2 (1.8-2.4cm)PWd1.2 (0.7-1.1cm) LVDs4.3 (2.5-4.0cm)SV28.1 ml LVEF(%)14.2 (>50%) Aortic Valve AoV Peak Louie.98.2cm/sAoV VTI14.3cm AO Peak GR.3.9mmHgLVOT VTI 9.81cm AO Mean GR.2mmHg Mitral Valve MV E Jrnurwqg50.4cm/sMV E Peak Gr.6mmHg MV DECEL [id number] A Mqlavuho03.9cm/s MV E Mean Gr.2mmHgE/A Ratio2.5 MV A [id number] TDI Lateral E' P. V15.00cm/sMedial E' P. V7.50cm/s E/Lateral E'6.1E/Medial E'12.2 LEFT VENTRICLE The left ventricle is normal size. There is borderline concentric left ventricular hypertrophy. Left ventricle systolic function is severely impaired. The Ejection Fraction is 15-20%. There is global hy pokinesis of the left ventricle. The distal 2/3 of the LV is severely hypokinetic. Suspect either str ess induced cardiomyopathy or large LAD territory ischemic infarct. Tissue Doppler imaging reveals s evere left ventricular diastolic dysfunction. RIGHT VENTRICLE The right ventricle is normal size. The right ventricular systolic function is normal. ATRIA The left atrium size is normal. The right atrium size is normal. The interatrial septum is intact wit h no evidence for an atrial septal defect or patent foramen ovale as noted on 2-D or Doppler imaging. AORTIC VALVE The aortic valve is not well visualized. Doppler and Color Flow revealed no significant aortic regurg itation. There is no significant aortic valvular stenosis. MITRAL VALVE The mitral valve is normal in structure. There is no mitral valve stenosis. Doppler and Color Flow re vealed mild mitral regurgitation. TRICUSPID VALVE The tricuspid valve is not well visualized. Doppler and Color Flow revealed no tricuspid valve regurg itation noted. Unable to estimate PA pressure. There is no tricuspid valve stenosis. PULMONIC VALVE The pulmonic valve is not well visualized. Doppler and Color Flow revealed no pulmonic valvular regur gitation. There is no pulmonic valvular stenosis. GREAT VESSELS The aortic root is normal in size. Pulmonary veins not recorded. The IVC is normal in size and collap ses >50% with inspiration. PERICARDIAL EFFUSION There is no evidence of significant pericardial effusion. Critical Notification Critical Value: No <Conclusion> Left ventricle systolic function is severely impaired. The Ejection Fraction is 15-20%. There is global hypokinesis of the left ventricle. The distal 2/3 of the LV is severely hypokinetic. Suspect either stress induced cardiomyopathy or large LAD territory ischemic infarct. Technically very difficult study due to body habitus.
[2017-03-27] MEDS: ASPIRIN CHEWABLE 81 MG TABLET. PO SCH (12:54)
[2017-03-27] MEDS ORDERED: MAGNESIUM SULFATE 2GM 50 ML IV ONE (13:45)
--- NOTE | 2017-03-27 14:32 | RAD ---
Procedure: Ultrasound-guided placement of right internal jugular central venous catheter Clinical Indication: Patient clinically along the ICU. Need for emergent central venous access Consent: The procedure was performed under medical necessity consent at the bedside. A timeout procedure was performed. All elements of maximal sterile barrier technique including the use of a cap, mask, sterile gown, sterile gloves, large sterile sheet, appropriate hand hygiene, and 2% chlorhexidine for cutaneous antisepsis (or acceptable alternative antiseptic per current guidelines) were followed for this procedure. The patient was prepped and draped in the usual sterile fashion. Ultrasound interrogation of the right neck revealed patency and compressibility of the right internal jugular vein. A 21-gauge micropuncture was then used to gain access to this vein under ultrasound guidance. A hard copy ultrasound image was recorded. 5 Vietnamese sheath was placed. A guidewire was advanced centrally. Over this wire following dilatation a triple-lumen central venous catheter was advanced centrally. Catheter was found to flush and aspirate normally. Follow-up chest radiograph demonstrates tip at the cavoatrial junction. Catheter secured in place and a sterile dressing was applied. No immediate complications were identified. Impression: Successful ultrasound-guided placement of right internal jugular triple-lumen central venous catheter
[2017-03-27] MEDS: FUROSEMIDE 40 MG/4 ML VIAL. IVP SCH (14:58)
[2017-03-27] MEDS ORDERED: IOHEXOL 300 MG/ML 100ML VIAL. ONE (15:00)
[2017-03-27] MEDS ORDERED: LIDOCAINE 2% 20 ML VIAL. ONE (15:00)
--- NOTE | 2017-03-27 15:25 | RAD ---
Indication Central line. A single view of the chest was obtained and is compared to an examination one day earlier. Heart size is unchanged. Pulmonary vasculature is similar. An acute parenchymal infiltrate is not seen. Endotracheal tube remains appropriately positioned above the stanislaw. A nasogastric tube is additionally noted although positioning of the tip is not certain. There's been interval placement of an IJ catheter. The tip is positioned in the mid to distal SVC. No complication is seen associated with the line placement and specifically no pneumothorax is seen. IMPRESSION: Interval placement of right IJ catheter. No complication seen
[2017-03-27] MEDS ORDERED: methylPREDNISolone SOD SUCC PF 125 MG/2 ML VIAL. ONE (15:29)
[2017-03-27] MEDS ORDERED: FAMOTIDINE 20 MG/2 ML VIAL ONE (15:29)
[2017-03-27] MEDS ORDERED: diphenhydrAMINE 50 MG/ML VIAL ONE (15:30)
[2017-03-27] MEDS ORDERED: hydrALAZINE 20 MG/ML VIAL. ONE (15:50)
[2017-03-27] MEDS ORDERED: FAMOTIDINE 20 MG/2 ML VIAL IVP ONE (16:00)
[2017-03-27] MEDS ORDERED: diphenhydrAMINE 50 MG/ML VIAL IVP ONE (16:00)
[2017-03-27] MEDS ORDERED: LIDOCAINE 2% 20 ML VIAL. IJ ONE (16:00)
[2017-03-27] MEDS ORDERED: IOHEXOL 300 MG/ML 100ML VIAL. IART ONE (16:00)
[2017-03-27] MEDS ORDERED: hydrALAZINE 20 MG/ML VIAL. IVP ONE (16:00)
[2017-03-27] MEDS ORDERED: CONTRAST GIVEN MC PRN (16:15)
--- NOTE | 2017-03-27 16:34 | PDOC ---
PULMONARY PROGRESS NOTES Vitals Vital Signs Date Time Temp Pulse Resp B/P (MAP) Pulse Ox O2 Delivery O2 Flow Rate FiO2 03/27/17 16:05 75 20 96 Ventilator 03/27/17 16:01 15.0 03/27/17 13:00 98.1 154/83 (106) 98.1 Labs Laboratory Tests Test 03/26/17 23:24 03/26/17 23:31 03/27/17 00:49 03/27/17 01:20 White Blood Count 11.3 x10^3/uL (4.0-11.0) Red Blood Count 4.48 x10^6/uL (3.50-5.40) Hemoglobin 13.6 g/dL (12.0-15.5) Hematocrit 41.5 % (36.0-47.0) Mean Corpuscular Volume 93 fL (79-100) Mean Corpuscular Hemoglobin 30 pg (25-35) Mean Corpuscular Hemoglobin Concent 33 g/dL (31-37) Red Cell Distribution Width 14.5 % (11.5-14.5) Platelet Count 327 x10^3/uL (140-400) Neutrophils (%) (Auto) 30 % (31-73) Lymphocytes (%) (Auto) 62 % (24-48) Monocytes (%) (Auto) 5 % (0-9) Eosinophils (%) (Auto) 3 % (0-3) Basophils (%) (Auto) 1 % (0-3) Neutrophils # (Auto) 3.4 x10^3uL (1.8-7.7) Lymphocytes # (Auto) 7.0 x10^3/uL (1.0-4.8) Monocytes # (Auto) 0.5 x10^3/uL (0.0-1.1) Eosinophils # (Auto) 0.3 x10^3/uL (0.0-0.7) Basophils # (Auto) 0.1 x10^3/uL (0.0-0.2) Segmented Neutrophils % 28 % (35-66) Band Neutrophils % 1 % (0-9) Lymphocytes % 64 % (24-48) Monocytes % 4 % (0-10) Eosinophils % 3 % (0-5) Platelet Estimate Adequate (ADEQUATE) Sodium Level 136 mmol/L (136-145) Potassium Level 4.0 mmol/L (3.5-5.1) Chloride Level 102 mmol/L (98-107) Carbon Dioxide Level 23 mmol/L (21-32) Anion Gap 11 (6-14) Blood Urea Nitrogen 11 mg/dL (7-20) Creatinine 1.0 mg/dL (0.6-1.0) Estimated GFR (Cockcroft-Gault) 64.4 BUN/Creatinine Ratio 11 (6-20) Glucose Level 383 mg/dL (70-99) Lactic Acid Level 4.2 mmol/L (0.4-2.0) Calcium Level 8.4 mg/dL (8.5-10.1) Total Bilirubin 0.4 mg/dL (0.2-1.0) Aspartate Amino Transf (AST/SGOT) 64 U/L (15-37) Alanine Aminotransferase (ALT/SGPT) 69 U/L (14-59) Alkaline Phosphatase 90 U/L (46-116) Troponin I Quantitative 0.041 ng/mL (0.000-0.055) HC-Nux-S-Type Natriuretic Peptide 138 pg/mL (0-449) Total Protein 7.8 g/dL (6.4-8.2) Albumin 3.2 g/dL (3.4-5.0) Albumin/Globulin Ratio 0.7 (1.0-1.7) O2 Saturation 99 % (92-99) Arterial Blood pH 7.29 (7.35-7.45) Arterial Blood pCO2 at Patient Temp 52 mmHg (35-46) Arterial Blood pO2 at Patient Temp 379 mmHg (65-108) Arterial Blood HCO3 24 mmol/L (21-28) Arterial Blood Base Excess -3 mmol/L (-3-3) FiO2 70 Influenza Type A Antigen Negative (NEGATIVE) Influenza Type B Antigen Negative (NEGATIVE) Urine Collection Type Unknown Urine Color Yellow Urine Clarity Clear Urine pH 5.5 Urine Specific Mingus 1.020 Urine Protein >=300 mg/dL (NEG-TRACE) Urine Glucose (UA) >=1000 mg/dL (NEG) Urine Ketones (Stick) Negative mg/dL (NEG) Urine Blood Small (NEG) Urine Nitrite Negative (NEG) Urine Bilirubin Negative (NEG) Urine Urobilinogen Dipstick 0.2 mg/dL (0.2 mg/dL) Urine Leukocyte Esterase Negative (NEG) Urine RBC 6-10 /HPF (0-2) Urine WBC 1-4 /HPF (0-4) Urine Squamous Epithelial Cells Mod /LPF Urine Amorphous Sediment Present /HPF Urine Bacteria Moderate /HPF (0-FEW) Urine Hyaline Casts Few /HPF Urine Granular Casts Occasional /HPF Urine Mucus Mod /LPF Urine Opiates Screen Neg (NEG) Urine Methadone Screen Neg (NEG) Urine Barbiturates Neg (NEG) Urine Phencyclidine Screen Neg (NEG) Urine Amphetamine/Methamphetamine Neg (NEG) Urine Benzodiazepines Screen Pos (NEG) Urine Cocaine Screen Neg (NEG) Urine Cannabinoids Screen Neg (NEG) Urine Ethyl Alcohol Neg (NEG) Test 03/27/17 01:50 03/27/17 03:55 03/27/17 07:50 03/27/17 08:15 O2 Saturation 97 % (92-99) 98 % (92-99) Arterial Blood pH 7.43 (7.35-7.45) 7.44 (7.35-7.45) Arterial Blood pCO2 at Patient Temp 34 mmHg (35-46) 32 mmHg (35-46) Arterial Blood pO2 at Patient Temp 92 mmHg (65-108) 119 mmHg (65-108) Arterial Blood HCO3 22 mmol/L (21-28) 22 mmol/L (21-28) Arterial Blood Base Excess -1 mmol/L (-3-3) -2 mmol/L (-3-3) FiO2 35 35 Lactic Acid Level 3.4 mmol/L (0.4-2.0) Sodium Level 141 mmol/L (136-145) Potassium Level 4.2 mmol/L (3.5-5.1) Chloride Level 105 mmol/L (98-107) Carbon Dioxide Level 25 mmol/L (21-32) Anion Gap 11 (6-14) Blood Urea Nitrogen 14 mg/dL (7-20) Creatinine 0.8 mg/dL (0.6-1.0) Estimated GFR (Cockcroft-Gault) 83.5 BUN/Creatinine Ratio 18 (6-20) Glucose Level 316 mg/dL (70-99) Calcium Level 8.2 mg/dL (8.5-10.1) Magnesium Level 1.7 mg/dL (1.8-2.4) Total Bilirubin 0.7 mg/dL (0.2-1.0) Aspartate Amino Transf (AST/SGOT) 68 U/L (15-37) Alanine Aminotransferase (ALT/SGPT) 67 U/L (14-59) Alkaline Phosphatase 79 U/L (46-116) Troponin I Quantitative 1.106 ng/mL (0.000-0.055) Total Protein 6.4 g/dL (6.4-8.2) Albumin 3.0 g/dL (3.4-5.0) Albumin/Globulin Ratio 0.9 (1.0-1.7) Triglycerides Level 233 mg/dL (0-150) Cholesterol Level 192 mg/dL (0-200) LDL Cholesterol, Calculated 101 mg/dL (0-100) VLDL Cholesterol, Calculated 47 mg/dL (0-40) Non-HDL Cholesterol Calculated 148 mg/dL (0-129) HDL Cholesterol 44 mg/dL (40-60) Cholesterol/HDL Ratio 4.4 Thyroid Stimulating Hormone (TSH) 2.138 uIU/mL (0.358-3.74) Test 03/27/17 13:50 03/27/17 14:54 Troponin I Quantitative 1.082 ng/mL (0.000-0.055) Glucose (Fingerstick) 251 mg/dL (70-99) Laboratory Tests Test 03/26/17 23:24 03/26/17 23:31 03/27/17 00:49 03/27/17 01:20 White Blood Count 11.3 x10^3/uL (4.0-11.0) Red Blood Count 4.48 x10^6/uL (3.50-5.40) Hemoglobin 13.6 g/dL (12.0-15.5) Hematocrit 41.5 % (36.0-47.0) Mean Corpuscular Volume 93 fL (79-100) Mean Corpuscular Hemoglobin 30 pg (25-35) Mean Corpuscular Hemoglobin Concent 33 g/dL (31-37) Red Cell Distribution Width 14.5 % (11.5-14.5) Platelet Count 327 x10^3/uL (140-400) Neutrophils (%) (Auto) 30 % (31-73) Lymphocytes (%) (Auto) 62 % (24-48) Monocytes (%) (Auto) 5 % (0-9) Eosinophils (%) (Auto) 3 % (0-3) Basophils (%) (Auto) 1 % (0-3) Neutrophils # (Auto) 3.4 x10^3uL (1.8-7.7) Lymphocytes # (Auto) 7.0 x10^3/uL (1.0-4.8) Monocytes # (Auto) 0.5 x10^3/uL (0.0-1.1) Eosinophils # (Auto) 0.3 x10^3/uL (0.0-0.7) Basophils # (Auto) 0.1 x10^3/uL (0.0-0.2) Segmented Neutrophils % 28 % (35-66) Band Neutrophils % 1 % (0-9) Lymphocytes % 64 % (24-48) Monocytes % 4 % (0-10) Eosinophils % 3 % (0-5) Platelet Estimate Adequate (ADEQUATE) Sodium Level 136 mmol/L (136-145) Potassium Level 4.0 mmol/L (3.5-5.1) Chloride Level 102 mmol/L (98-107) Carbon Dioxide Level 23 mmol/L (21-32) Anion Gap 11 (6-14) Blood Urea Nitrogen 11 mg/dL (7-20) Creatinine 1.0 mg/dL (0.6-1.0) Estimated GFR (Cockcroft-Gault) 64.4 BUN/Creatinine Ratio 11 (6-20) Glucose Level 383 mg/dL (70-99) Lactic Acid Level 4.2 mmol/L (0.4-2.0) Calcium Level 8.4 mg/dL (8.5-10.1) Total Bilirubin 0.4 mg/dL (0.2-1.0) Aspartate Amino Transf (AST/SGOT) 64 U/L (15-37) Alanine Aminotransferase (ALT/SGPT) 69 U/L (14-59) Alkaline Phosphatase 90 U/L (46-116) Troponin I Quantitative 0.041 ng/mL (0.000-0.055) OC-Ruf-O-Type Natriuretic Peptide 138 pg/mL (0-449) Total Protein 7.8 g/dL (6.4-8.2) Albumin 3.2 g/dL (3.4-5.0) Albumin/Globulin Ratio 0.7 (1.0-1.7) O2 Saturation 99 % (92-99) Arterial Blood pH 7.29 (7.35-7.45) Arterial Blood pCO2 at Patient Temp 52 mmHg (35-46) Arterial Blood pO2 at Patient Temp 379 mmHg (65-108) Arterial Blood HCO3 24 mmol/L (21-28) Arterial Blood Base Excess -3 mmol/L (-3-3) FiO2 70 Influenza Type A Antigen Negative (NEGATIVE) Influenza Type B Antigen Negative (NEGATIVE) Urine Collection Type Unknown Urine Color Yellow Urine Clarity Clear Urine pH 5.5 Urine Specific Mingus 1.020 Urine Protein >=300 mg/dL (NEG-TRACE) Urine Glucose (UA) >=1000 mg/dL (NEG) Urine Ketones (Stick) Negative mg/dL (NEG) Urine Blood Small (NEG) Urine Nitrite Negative (NEG) Urine Bilirubin Negative (NEG) Urine Urobilinogen Dipstick 0.2 mg/dL (0.2 mg/dL) Urine Leukocyte Esterase Negative (NEG) Urine RBC 6-10 /HPF (0-2) Urine WBC 1-4 /HPF (0-4) Urine Squamous Epithelial Cells Mod /LPF Urine Amorphous Sediment Present /HPF Urine Bacteria Moderate /HPF (0-FEW) Urine Hyaline Casts Few /HPF Urine Granular Casts Occasional /HPF Urine Mucus Mod /LPF Urine Opiates Screen Neg (NEG) Urine Methadone Screen Neg (NEG) Urine Barbiturates Neg (NEG) Urine Phencyclidine Screen Neg (NEG) Urine Amphetamine/Methamphetamine Neg (NEG) Urine Benzodiazepines Screen Pos (NEG) Urine Cocaine Screen Neg (NEG) Urine Cannabinoids Screen Neg (NEG) Urine Ethyl Alcohol Neg (NEG) Test 03/27/17 01:50 03/27/17 03:55 03/27/17 07:50 03/27/17 08:15 O2 Saturation 97 % (92-99) 98 % (92-99) Arterial Blood pH 7.43 (7.35-7.45) 7.44 (7.35-7.45) Arterial Blood pCO2 at Patient Temp 34 mmHg (35-46) 32 mmHg (35-46) Arterial Blood pO2 at Patient Temp 92 mmHg (65-108) 119 mmHg (65-108) Arterial Blood HCO3 22 mmol/L (21-28) 22 mmol/L (21-28) Arterial Blood Base Excess -1 mmol/L (-3-3) -2 mmol/L (-3-3) FiO2 35 35 Lactic Acid Level 3.4 mmol/L (0.4-2.0) Sodium Level 141 mmol/L (136-145) Potassium Level 4.2 mmol/L (3.5-5.1) Chloride Level 105 mmol/L (98-107) Carbon Dioxide Level 25 mmol/L (21-32) Anion Gap 11 (6-14) Blood Urea Nitrogen 14 mg/dL (7-20) Creatinine 0.8 mg/dL (0.6-1.0) Estimated GFR (Cockcroft-Gault) 83.5 BUN/Creatinine Ratio 18 (6-20) Glucose Level 316 mg/dL (70-99) Calcium Level 8.2 mg/dL (8.5-10.1) Magnesium Level 1.7 mg/dL (1.8-2.4) Total Bilirubin 0.7 mg/dL (0.2-1.0) Aspartate Amino Transf (AST/SGOT) 68 U/L (15-37) Alanine Aminotransferase (ALT/SGPT) 67 U/L (14-59) Alkaline Phosphatase 79 U/L (46-116) Troponin I Quantitative 1.106 ng/mL (0.000-0.055) Total Protein 6.4 g/dL (6.4-8.2) Albumin 3.0 g/dL (3.4-5.0) Albumin/Globulin Ratio 0.9 (1.0-1.7) Triglycerides Level 233 mg/dL (0-150) Cholesterol Level 192 mg/dL (0-200) LDL Cholesterol, Calculated 101 mg/dL (0-100) VLDL Cholesterol, Calculated 47 mg/dL (0-40) Non-HDL Cholesterol Calculated 148 mg/dL (0-129) HDL Cholesterol 44 mg/dL (40-60) Cholesterol/HDL Ratio 4.4 Thyroid Stimulating Hormone (TSH) 2.138 uIU/mL (0.358-3.74) Test 03/27/17 13:50 03/27/17 14:54 Troponin I Quantitative 1.082 ng/mL (0.000-0.055) Glucose (Fingerstick) 251 mg/dL (70-99) Impression . FULL NOTE DICTATED ACUTE RESP FAILURE NSTEMI POSSIBLE SEPSIS SEE ORDERS CURTIS KLINE MD Mar 27, 2017 16:34
--- NOTE | 2017-03-27 17:10 | CARD ---
APPROVED REPORT Procedure(s) performed: Coros, LV, Left ventriculogram HISTORY The patient is a 82 year-old female with a history of : tobacco history() . INDICATION The indication(s) include : non-STEMI , patient with syncope and resp arrest with elevated troponin. . PROCEDURE NARRATIVE The patient was brought electively to the cardiac catheterization lab. A timeout was performed confi rming the patient's name, date of , procedure, and site of procedure. All necessary personnel w ere wearing the appropriate protective equipment and radiation monitor devices. After explaining the risks and benefits of the procedure and alternatives, informed consent was obtained from next of kin . (See nursing notes for medications administered). The right groin was sterilely prepped and draped in the usual fashion. The right groin was infiltrated with 10 mL of 2% lidocaine for subcutaneous a nesthesia. A 6 Indonesian sheath was inserted into the right femoral artery without difficulty. Right a nd left coronary angiography was performed using standard diagnostic catheters. Left ventricular end diastolic pressure was obtained with a pigtail catheter and pullback was performed after left ventri culography. All catheter exchanges and advancements were performed over a guidewire. At case comple tion the right femoral sheath was removed and hemostasis was achieved via manual compression. HEMODYNAMICS: LVEDP 18 mm Hg No gradient on LV to aortic pullback. LEFT VENTRICULOGRAM: EF 20% Anterobasal: Normal. Anterolateral: Severely hypokinetic Apical: Severely hypokinetic Diaphragmatic: Severely hypokinetic Posterobasal: Normal CORONARY ANGIOGRAPHY: LM is a large caliber vessel with normal angiographic appearance. LAD is a large caliber tortuous vessel with mild luminal irregularities. Ramus is a moderate caliber vessel with normal angiographic apeparance. LCx is a moderate caliber non-dominant vessel with normal angiographic appearance. OM1 is a moderate caliber vessel with normal angiographic appearance. RCA is a moderate caliber vessel with normal angiographic appearance. Conclusion 1. 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 2. No significant coronary disease. Recommendations Aggressive Medical Therapy
[2017-03-27] MEDS: LABETALOL 20 MG/4 ML DISP.SYRIN. IVP PRN ×2 (20:16→23:14)
[2017-03-27] MEDS: ATORVASTATIN CALCIUM 40 MG TABLET. PO SCH (20:17)
--- NOTE | 2017-03-27 20:30 | CONS ---
DATE OF CONSULTATION: 03/27/2017 ATTENDING PHYSICIAN: Dr. Kamila Mcarthur. REASON FOR CONSULTATION: The patient is seen in pulmonary consultation at the request of Dr. Mcarthur for vent management. HISTORY OF PRESENT ILLNESS: The patient is an 82-year-old who presented to the Emergency Room in respiratory distress. Apparently, EMS was summoned to the patient's home with reported respiratory distress. They found her to have saturations of 50-70, unresponsive only to painful stimuli. The patient was initiated on BiPAP and transported to the Emergency Department. She was then intubated. She was transferred to the intensive care unit. Cardiology was consulted. There was evidence of left ventricular dysfunction. She is scheduled to undergo cardiac catheterization. She is on mechanical ventilation, sedated. She was also seen by Infectious Disease Service for possible sepsis and lactic acidosis. She was started on vancomycin and cefepime. CT chest, abdomen and pelvis were obtained. PAST MEDICAL HISTORY: Otherwise remarkable for COPD, previous heart failure. ALLERGIES: LISTED TO SULFA, IODINE AND PIPERACILLIN. FAMILY HISTORY: Coronary artery disease. SOCIAL HISTORY: Unknown. REVIEW OF SYSTEMS: Unobtainable secondary to the patient's condition. PHYSICAL EXAMINATION: GENERAL: The patient is currently in the intensive care unit. She is on mechanical ventilation. VITAL SIGNS: Have been stable. HEENT: Eyes: The sclerae were nonicteric. NECK: Jugular venous distention was not elevated. No lymphadenopathy. CHEST: Full expansion. LUNGS: Adequate airway flow with no wheezes. CARDIOVASCULAR: Regular rate and rhythm with S1, S2, no S3. ABDOMEN: Soft, nontender, nondistended. EXTREMITIES: No clubbing, cyanosis or edema. NEUROLOGIC: The patient was sedated. LABORATORY DATA: Reviewed. White count was elevated. Arterial blood gas initially pH of 7.29, pCO2 of 52, pO2 of 379. Electrolytes were noted. Troponin level was elevated. Lactic acid level initially elevated 4.2, decreased to 3.4 upon repeat. Her urine drug screen was positive for benzodiazepines. Serology was negative. IMAGING: Chest x-ray was reviewed revealing no definitive infiltrate. There was no definitive infiltrate and the left hemidiaphragm was not totally imaged. IMPRESSION: 1. Acute respiratory failure, multifactorial. 2. Possible sepsis. 3. Elevated troponin, possible non-ST segment elevation myocardial infarction. 4. Leukocytosis. 5. Type 2 diabetes. 6. Obesity. PLAN: 1. The patient is to undergo cardiac catheterization. 2. Continue antibiotics per ID. 3. No need for steroids. 4. Maintain sedative for now. 5. Initiate tube feeding per orogastric tube. I do appreciate the privilege in sharing in the patient's care. Total cumulative critical care time of 45 minutes. CURTIS KLINE MD DR: SALLY/khloe JOB#: [id number] / [id number]
[2017-03-27 22:07] LABS: BARBITURATES NEG (NEG); BENZODIAZEPINES POS (NEG); CANNABINOIDS NEG (NEG); COCAINE NEG (NEG); METHADONE NEG (NEG); OPIATES NEG (NEG); PHENCYCLIDINE NEG (NEG)
[2017-03-28] VITALS (24 sets, daily range): BP systolic 98–192; BP diastolic 48–97
[2017-03-28] MEDS: LABETALOL 20 MG/4 ML DISP.SYRIN. IVP PRN ×2 (03:18→05:33)
[2017-03-28] MEDS ORDERED: VANCOMYCIN 1.5 GM in IV NORMAL SALINE 500ML BAG 500 ML IV SCH (05:00)
[2017-03-28] MEDS: PROPOFOL 100 ML IV PRN (05:16)
[2017-03-28] MEDS: IV NORMAL SALINE 1000ML BAG 1,000 ML IV SCH ×2 (05:16→18:28)
[2017-03-28 06:06] LABS: BASO % 0 % (0-3); EOS % 0 % (0-3); HEMATOCRIT 39.5 % (36.0-47.0); HEMOGLOBIN 13.1 g/dL (12.0-15.5); LYMPH # 1.1 x10^3/uL (1.0-4.8); LYMPH % 11 % (24-48); MEAN CORPUSCULAR HEMOGLOBIN 30 pg (25-35); MEAN CORPUSCULAR HGB CONC 33 g/dL (31-37); MEAN CORPUSCULAR VOLUME 90 fL (79-100); MONO % 4 % (0-9); NEUT % 85 % (31-73); PLATELET COUNT 277 x10^3/uL (140-400); RED CELL DISTRIBUTION WIDTH 14.7 % (11.5-14.5); WHITE BLOOD COUNT 9.9 x10^3/uL (4.0-11.0)
[2017-03-28 06:34] LABS: GFR 64.6; POTASSIUM 3.3 mmol/L (3.5-5.1)
[2017-03-28] MEDS: VANCOMYCIN PER PHARMACY MC PRN ×2 (06:41→16:29)
--- NOTE | 2017-03-28 08:06 | RAD ---
Portable chest, 03/28/2017: History: Respiratory failure Comparison is made to a study from 03/27/2017. An ET tube remains in place with its tip located 5 cm above the stanislaw. An NG tube extends into the stomach, although its tip is not visible. A right jugular central venous catheter extends into the right atrium. The heart is at the upper limits of normal in size. The pulmonary vascularity is normal. No pulmonary infiltrate is seen. There is blunting of left lateral costophrenic angle compatible with scarring versus a tiny amount pleural fluid. IMPRESSION: 1. Catheter placements as described above. 2. No acute infiltrates. 3. Possible tiny left pleural effusion
--- NOTE | 2017-03-28 08:28 | PDOC ---
Infectious Disease Note Subjective Subjective intubated on vent ROS ROS unable to do Vital Sign Vital Signs Vital Signs Date Time Temp Pulse Resp B/P (MAP) Pulse Ox O2 Delivery O2 Flow Rate FiO2 03/28/17 07:35 99 Ventilator 03/28/17 06:00 75 20 165/75 (105) 03/28/17 04:00 98.5 98.5 03/27/17 16:01 15.0 Physical Exam PHYSICAL EXAM GENERAL: NAD, on vent HEENT: PERRL, OC/OP NECK: Supple, no JVD, no LN LUNGS: Clear HEART: S1S2, no gallop, no murmur ABD: Soft, NT, no organomegaly, no rebound EXT: No edema, no cyanosis STUDENT WORKER: sedated on vent SKIN: No rash IV: ok Labs Lab Laboratory Tests Test 03/27/17 13:50 03/27/17 14:54 03/27/17 16:52 03/27/17 21:45 Troponin I Quantitative 1.082 ng/mL (0.000-0.055) Glucose (Fingerstick) 251 mg/dL (70-99) 311 mg/dL (70-99) Urine Opiates Screen Neg (NEG) Urine Methadone Screen Neg (NEG) Urine Barbiturates Neg (NEG) Urine Phencyclidine Screen Neg (NEG) Urine Amphetamine/Methamphetamine Neg (NEG) Urine Benzodiazepines Screen Pos (NEG) Urine Cocaine Screen Neg (NEG) Urine Cannabinoids Screen Neg (NEG) Urine Ethyl Alcohol Neg (NEG) Test 03/28/17 05:22 03/28/17 05:35 Glucose (Fingerstick) 362 mg/dL (70-99) White Blood Count 9.9 x10^3/uL (4.0-11.0) Red Blood Count 4.40 x10^6/uL (3.50-5.40) Hemoglobin 13.1 g/dL (12.0-15.5) Hematocrit 39.5 % (36.0-47.0) Mean Corpuscular Volume 90 fL (79-100) Mean Corpuscular Hemoglobin 30 pg (25-35) Mean Corpuscular Hemoglobin Concent 33 g/dL (31-37) Red Cell Distribution Width 14.7 % (11.5-14.5) Platelet Count 277 x10^3/uL (140-400) Neutrophils (%) (Auto) 85 % (31-73) Lymphocytes (%) (Auto) 11 % (24-48) Monocytes (%) (Auto) 4 % (0-9) Eosinophils (%) (Auto) 0 % (0-3) Basophils (%) (Auto) 0 % (0-3) Neutrophils # (Auto) 8.4 x10^3uL (1.8-7.7) Lymphocytes # (Auto) 1.1 x10^3/uL (1.0-4.8) Monocytes # (Auto) 0.4 x10^3/uL (0.0-1.1) Eosinophils # (Auto) 0.0 x10^3/uL (0.0-0.7) Basophils # (Auto) 0.0 x10^3/uL (0.0-0.2) Sodium Level 141 mmol/L (136-145) Potassium Level 3.3 mmol/L (3.5-5.1) Chloride Level 105 mmol/L (98-107) Carbon Dioxide Level 24 mmol/L (21-32) Anion Gap 12 (6-14) Blood Urea Nitrogen 12 mg/dL (7-20) Creatinine 1.0 mg/dL (0.6-1.0) Estimated GFR (Cockcroft-Gault) 64.6 Glucose Level 363 mg/dL (70-99) Calcium Level 8.0 mg/dL (8.5-10.1) Objective Assessment Sepsis Lactic acidosis Respiratory failure Hypoxia Leukocytosis Encephalopathy Cardiomyopathy Plan Plan of Care cultures neg so far vanc , cefepime ct chest, abd and pelvis supportive care cath neg MICHAEL ARREAGA MD Mar 28, 2017 08:28
[2017-03-28] MEDS ORDERED: CARVEDILOL 6.25 MG TABLET. PO SCH (08:30)
[2017-03-28] MEDS: PANTOPRAZOLE 40 MG TABLET.DR. PO SCH (08:30)
[2017-03-28] MEDS ORDERED: POTASSIUM CHLORIDE 20 MEQ TABLET.ER. PO ONE (08:30)
[2017-03-28] MEDS: POTASSIUM CHLORIDE 20MEQ 50 ML IV SCH ×2 (08:37→09:30)
[2017-03-28] MEDS: ASPIRIN CHEWABLE 81 MG TABLET. PO SCH (08:37)
[2017-03-28] MEDS: FUROSEMIDE 40 MG/4 ML VIAL. IVP SCH (08:38)
[2017-03-28] MEDS: INSULIN ASPART 300 UNITS/3 ML INSULN.PEN SQ SCH ×3 (08:41→18:27)
[2017-03-28] MEDS: CEFEPIME HCL 2 GM in IV NORMAL SALINE 100ML 100 ML IV SCH ×2 (09:00→20:33)
[2017-03-28] MEDS ORDERED: LOSARTAN POTASSIUM 50 MG TABLET. PO SCH (09:00)
--- NOTE | 2017-03-28 09:40 | RAD ---
CT of the chest, abdomen and pelvis without contrast, 03/28/2017: History: Patient unresponsive, sepsis Noncontrast scans were obtained as requested. There is calcific plaquing of the thoracic aorta without evidence of aneurysm. Moderate coronary artery calcifications are present. The left lobe of the thyroid gland is enlarged. An NG tube extends into the proximal aspect of the stomach. A right-sided central venous catheter extends into the superior aspect of the right atrium. An ET tube is in satisfactory position. There is minimal atelectasis along the oblique fissures and in the left lung base. No pulmonary mass or dense consolidation is seen. There is no evidence of pleural fluid. The unopacified liver is unremarkable. The gallbladder is not visualized and is presumably surgically absent. No pancreatic abnormality is seen. The spleen is of normal size. There is contrast material in the kidneys, presumably related to a recent cardiac catheterization. The kidneys show no evidence of obstruction or mass. There is moderate calcific plaquing of the abdominal aorta and its branches without evidence of aneurysm. Artifacts arising from bilateral hip prostheses degrade image quality in the lower pelvis. No abdominal or pelvic adenopathy is seen. The bowel loops are not dilated. No free air or significant free fluid is evident in the abdomen or pelvis. The appendix is not visualized. No pericecal inflammatory process is evident. Moderate multilevel hypertrophic degenerative changes are present in the spine. IMPRESSION: 1. Mild linear atelectasis in both lungs. 2. Enlargement of the left lobe of the thyroid gland. 3. Calcific plaquing of the aorta and its branches including the coronary arteries. 4. No acute abdominal or pelvic abnormality is detected. PQRS Compliance Statement: One or more of the following individualized dose reduction techniques were utilized for this examination: 1. Automated exposure control 2. Adjustment of the mA and/or kV according to patient size 3. Use of iterative reconstruction technique
[2017-03-28 10:05] LABS: ALLEN TEST POSITIVE; FIO2 ABG 35; HCO3 ABG 23 mmol/L (21-28); PCO2 ABG 31 mmHg (35-46); PH ABG 7.49 (7.35-7.45); PO2 ABG 85 mmHg (65-108); SAT O2 ABG 96 % (92-99)
--- NOTE | 2017-03-28 11:32 | PDOC ---
PROGRESS NOTES Chief Complaint Chief Complaint Respiratory failure Hypoxia CHF COPD History of Present Illness History of Present Illness Pt seen at bedside in the ICU. She is accompanied by her sister who I spoke to and discussed the case with. The patient remains on the ventilator but is breathing spontaneously-hope to ween fully. Potassium 3.3 this AM-IV replacement started. Pulm, ID and cardio are following. 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 Sister reports that the patient has been under a great deal of stress recently. No acute overnight events. She appears to be improving. Will continue to monitor in the ICU and await subspec input moving forward with plan of care. Vent: Spontaneous breathing, FiO2 at 35%, O2 sat @ 100%, 10 pressure support Vitals Vitals Vital Signs Date Time Temp Pulse Resp B/P (MAP) Pulse Ox O2 Delivery O2 Flow Rate FiO2 03/28/17 10:20 99 Ventilator 03/28/17 08:37 75 165/75 03/28/17 06:00 20 03/28/17 04:00 98.5 98.5 03/27/17 16:01 15.0 Physical Exam Physical Exam She is beginning to breath spontaneously but remains on vent. Blinking her eyes at times. General: Other (sedated, intubated) Heart: Regular rate (SR), Other (distant heart sounds) Abdomen: Soft, Other (obese) Extremities: No cyanosis, Other Skin: No breakdown Labs LABS Laboratory Tests Test 03/27/17 13:50 03/27/17 14:54 03/27/17 16:52 03/27/17 21:45 Troponin I Quantitative 1.082 ng/mL (0.000-0.055) Glucose (Fingerstick) 251 mg/dL (70-99) 311 mg/dL (70-99) Urine Opiates Screen Neg (NEG) Urine Methadone Screen Neg (NEG) Urine Barbiturates Neg (NEG) Urine Phencyclidine Screen Neg (NEG) Urine Amphetamine/Methamphetamine Neg (NEG) Urine Benzodiazepines Screen Pos (NEG) Urine Cocaine Screen Neg (NEG) Urine Cannabinoids Screen Neg (NEG) Urine Ethyl Alcohol Neg (NEG) Test 03/28/17 05:22 03/28/17 05:35 03/28/17 09:30 Glucose (Fingerstick) 362 mg/dL (70-99) White Blood Count 9.9 x10^3/uL (4.0-11.0) Red Blood Count 4.40 x10^6/uL (3.50-5.40) Hemoglobin 13.1 g/dL (12.0-15.5) Hematocrit 39.5 % (36.0-47.0) Mean Corpuscular Volume 90 fL (79-100) Mean Corpuscular Hemoglobin 30 pg (25-35) Mean Corpuscular Hemoglobin Concent 33 g/dL (31-37) Red Cell Distribution Width 14.7 % (11.5-14.5) Platelet Count 277 x10^3/uL (140-400) Neutrophils (%) (Auto) 85 % (31-73) Lymphocytes (%) (Auto) 11 % (24-48) Monocytes (%) (Auto) 4 % (0-9) Eosinophils (%) (Auto) 0 % (0-3) Basophils (%) (Auto) 0 % (0-3) Neutrophils # (Auto) 8.4 x10^3uL (1.8-7.7) Lymphocytes # (Auto) 1.1 x10^3/uL (1.0-4.8) Monocytes # (Auto) 0.4 x10^3/uL (0.0-1.1) Eosinophils # (Auto) 0.0 x10^3/uL (0.0-0.7) Basophils # (Auto) 0.0 x10^3/uL (0.0-0.2) Sodium Level 141 mmol/L (136-145) Potassium Level 3.3 mmol/L (3.5-5.1) Chloride Level 105 mmol/L (98-107) Carbon Dioxide Level 24 mmol/L (21-32) Anion Gap 12 (6-14) Blood Urea Nitrogen 12 mg/dL (7-20) Creatinine 1.0 mg/dL (0.6-1.0) Estimated GFR (Cockcroft-Gault) 64.6 Glucose Level 363 mg/dL (70-99) Calcium Level 8.0 mg/dL (8.5-10.1) O2 Saturation 96 % (92-99) Arterial Blood pH 7.49 (7.35-7.45) Arterial Blood pCO2 at Patient Temp 31 mmHg (35-46) Arterial Blood pO2 at Patient Temp 85 mmHg (65-108) Arterial Blood HCO3 23 mmol/L (21-28) Arterial Blood Base Excess 1 mmol/L (-3-3) FiO2 35 Review of Systems Review of Systems ROS unattainable secondary to mental status Assessment and Plan Assessmemt and Plan Problems Medical Problems: (1) COPD (chronic obstructive pulmonary disease) Status: Acute (2) Hypoxia Status: Acute (3) Lactic acidosis Status: Acute (4) Respiratory failure Status: Acute Assessment: Acute respiratory failure CHF hypoxia Lactic acidosis COPD hypokalemia Plan: Discussed with patients sister at bedside in ICU hope to michele of vent-awaiting subspec input IV K given-K of 3.3 this AM recheck labs PT/OT home meds cardio, pulm, and ID following echocardiogram reviewed Will continue to monitor in the ICU and await subspec input for further plan of care Problems: Comment Review of Relevant I have reviewed the following items la nena (where applicable) has been applied. Labs Laboratory Tests Test 03/26/17 23:24 03/26/17 23:31 03/27/17 00:49 03/27/17 01:20 White Blood Count 11.3 x10^3/uL (4.0-11.0) Red Blood Count 4.48 x10^6/uL (3.50-5.40) Hemoglobin 13.6 g/dL (12.0-15.5) Hematocrit 41.5 % (36.0-47.0) Mean Corpuscular Volume 93 fL (79-100) Mean Corpuscular Hemoglobin 30 pg (25-35) Mean Corpuscular Hemoglobin Concent 33 g/dL (31-37) Red Cell Distribution Width 14.5 % (11.5-14.5) Platelet Count 327 x10^3/uL (140-400) Neutrophils (%) (Auto) 30 % (31-73) Lymphocytes (%) (Auto) 62 % (24-48) Monocytes (%) (Auto) 5 % (0-9) Eosinophils (%) (Auto) 3 % (0-3) Basophils (%) (Auto) 1 % (0-3) Neutrophils # (Auto) 3.4 x10^3uL (1.8-7.7) Lymphocytes # (Auto) 7.0 x10^3/uL (1.0-4.8) Monocytes # (Auto) 0.5 x10^3/uL (0.0-1.1) Eosinophils # (Auto) 0.3 x10^3/uL (0.0-0.7) Basophils # (Auto) 0.1 x10^3/uL (0.0-0.2) Segmented Neutrophils % 28 % (35-66) Band Neutrophils % 1 % (0-9) Lymphocytes % 64 % (24-48) Monocytes % 4 % (0-10) Eosinophils % 3 % (0-5) Platelet Estimate Adequate (ADEQUATE) Sodium Level 136 mmol/L (136-145) Potassium Level 4.0 mmol/L (3.5-5.1) Chloride Level 102 mmol/L (98-107) Carbon Dioxide Level 23 mmol/L (21-32) Anion Gap 11 (6-14) Blood Urea Nitrogen 11 mg/dL (7-20) Creatinine 1.0 mg/dL (0.6-1.0) Estimated GFR (Cockcroft-Gault) 64.4 BUN/Creatinine Ratio 11 (6-20) Glucose Level 383 mg/dL (70-99) Lactic Acid Level 4.2 mmol/L (0.4-2.0) Calcium Level 8.4 mg/dL (8.5-10.1) Total Bilirubin 0.4 mg/dL (0.2-1.0) Aspartate Amino Transf (AST/SGOT) 64 U/L (15-37) Alanine Aminotransferase (ALT/SGPT) 69 U/L (14-59) Alkaline Phosphatase 90 U/L (46-116) Troponin I Quantitative 0.041 ng/mL (0.000-0.055) KO-Kov-M-Type Natriuretic Peptide 138 pg/mL (0-449) Total Protein 7.8 g/dL (6.4-8.2) Albumin 3.2 g/dL (3.4-5.0) Albumin/Globulin Ratio 0.7 (1.0-1.7) O2 Saturation 99 % (92-99) Arterial Blood pH 7.29 (7.35-7.45) Arterial Blood pCO2 at Patient Temp 52 mmHg (35-46) Arterial Blood pO2 at Patient Temp 379 mmHg (65-108) Arterial Blood HCO3 24 mmol/L (21-28) Arterial Blood Base Excess -3 mmol/L (-3-3) FiO2 70 Influenza Type A Antigen Negative (NEGATIVE) Influenza Type B Antigen Negative (NEGATIVE) Urine Collection Type Unknown Urine Color Yellow Urine Clarity Clear Urine pH 5.5 Urine Specific Greene 1.020 Urine Protein >=300 mg/dL (NEG-TRACE) Urine Glucose (UA) >=1000 mg/dL (NEG) Urine Ketones (Stick) Negative mg/dL (NEG) Urine Blood Small (NEG) Urine Nitrite Negative (NEG) Urine Bilirubin Negative (NEG) Urine Urobilinogen Dipstick 0.2 mg/dL (0.2 mg/dL) Urine Leukocyte Esterase Negative (NEG) Urine RBC 6-10 /HPF (0-2) Urine WBC 1-4 /HPF (0-4) Urine Squamous Epithelial Cells Mod /LPF Urine Amorphous Sediment Present /HPF Urine Bacteria Moderate /HPF (0-FEW) Urine Hyaline Casts Few /HPF Urine Granular Casts Occasional /HPF Urine Mucus Mod /LPF Urine Opiates Screen Neg (NEG) Urine Methadone Screen Neg (NEG) Urine Barbiturates Neg (NEG) Urine Phencyclidine Screen Neg (NEG) Urine Amphetamine/Methamphetamine Neg (NEG) Urine Benzodiazepines Screen Pos (NEG) Urine Cocaine Screen Neg (NEG) Urine Cannabinoids Screen Neg (NEG) Urine Ethyl Alcohol Neg (NEG) Test 03/27/17 01:50 03/27/17 02:40 03/27/17 03:55 03/27/17 07:50 O2 Saturation 97 % (92-99) 98 % (92-99) Arterial Blood pH 7.43 (7.35-7.45) 7.44 (7.35-7.45) Arterial Blood pCO2 at Patient Temp 34 mmHg (35-46) 32 mmHg (35-46) Arterial Blood pO2 at Patient Temp 92 mmHg (65-108) 119 mmHg (65-108) Arterial Blood HCO3 22 mmol/L (21-28) 22 mmol/L (21-28) Arterial Blood Base Excess -1 mmol/L (-3-3) -2 mmol/L (-3-3) FiO2 35 35 Nasal Screen MRSA (PCR) Negative (Negative) Lactic Acid Level 3.4 mmol/L (0.4-2.0) Test 03/27/17 08:15 03/27/17 13:50 03/27/17 14:54 10/12/17 16:52 Sodium Level 141 mmol/L (136-145) Potassium Level 4.2 mmol/L (3.5-5.1) Chloride Level 105 mmol/L (98-107) Carbon Dioxide Level 25 mmol/L (21-32) Anion Gap 11 (6-14) Blood Urea Nitrogen 14 mg/dL (7-20) Creatinine 0.8 mg/dL (0.6-1.0) Estimated GFR (Cockcroft-Gault) 83.5 BUN/Creatinine Ratio 18 (6-20) Glucose Level 316 mg/dL (70-99) Calcium Level 8.2 mg/dL (8.5-10.1) Magnesium Level 1.7 mg/dL (1.8-2.4) Total Bilirubin 0.7 mg/dL (0.2-1.0) Aspartate Amino Transf (AST/SGOT) 68 U/L (15-37) Alanine Aminotransferase (ALT/SGPT) 67 U/L (14-59) Alkaline Phosphatase 79 U/L (46-116) Troponin I Quantitative 1.106 ng/mL (0.000-0.055) 1.082 ng/mL (0.000-0.055) Total Protein 6.4 g/dL (6.4-8.2) Albumin 3.0 g/dL (3.4-5.0) Albumin/Globulin Ratio 0.9 (1.0-1.7) Triglycerides Level 233 mg/dL (0-150) Cholesterol Level 192 mg/dL (0-200) LDL Cholesterol, Calculated 101 mg/dL (0-100) VLDL Cholesterol, Calculated 47 mg/dL (0-40) Non-HDL Cholesterol Calculated 148 mg/dL (0-129) HDL Cholesterol 44 mg/dL (40-60) Cholesterol/HDL Ratio 4.4 Thyroid Stimulating Hormone (TSH) 2.138 uIU/mL (0.358-3.74) Glucose (Fingerstick) 251 mg/dL (70-99) 311 mg/dL (70-99) Test 03/27/17 21:45 03/28/17 05:22 03/28/17 05:35 03/28/17 09:30 Urine Opiates Screen Neg (NEG) Urine Methadone Screen Neg (NEG) Urine Barbiturates Neg (NEG) Urine Phencyclidine Screen Neg (NEG) Urine Amphetamine/Methamphetamine Neg (NEG) Urine Benzodiazepines Screen Pos (NEG) Urine Cocaine Screen Neg (NEG) Urine Cannabinoids Screen Neg (NEG) Urine Ethyl Alcohol Neg (NEG) Glucose (Fingerstick) 362 mg/dL (70-99) White Blood Count 9.9 x10^3/uL (4.0-11.0) Red Blood Count 4.40 x10^6/uL (3.50-5.40) Hemoglobin 13.1 g/dL (12.0-15.5) Hematocrit 39.5 % (36.0-47.0) Mean Corpuscular Volume 90 fL (79-100) Mean Corpuscular Hemoglobin 30 pg (25-35) Mean Corpuscular Hemoglobin Concent 33 g/dL (31-37) Red Cell Distribution Width 14.7 % (11.5-14.5) Platelet Count 277 x10^3/uL (140-400) Neutrophils (%) (Auto) 85 % (31-73) Lymphocytes (%) (Auto) 11 % (24-48) Monocytes (%) (Auto) 4 % (0-9) Eosinophils (%) (Auto) 0 % (0-3) Basophils (%) (Auto) 0 % (0-3) Neutrophils # (Auto) 8.4 x10^3uL (1.8-7.7) Lymphocytes # (Auto) 1.1 x10^3/uL (1.0-4.8) Monocytes # (Auto) 0.4 x10^3/uL (0.0-1.1) Eosinophils # (Auto) 0.0 x10^3/uL (0.0-0.7) Basophils # (Auto) 0.0 x10^3/uL (0.0-0.2) Sodium Level 141 mmol/L (136-145) Potassium Level 3.3 mmol/L (3.5-5.1) Chloride Level 105 mmol/L (98-107) Carbon Dioxide Level 24 mmol/L (21-32) Anion Gap 12 (6-14) Blood Urea Nitrogen 12 mg/dL (7-20) Creatinine 1.0 mg/dL (0.6-1.0) Estimated GFR (Cockcroft-Gault) 64.6 Glucose Level 363 mg/dL (70-99) Calcium Level 8.0 mg/dL (8.5-10.1) O2 Saturation 96 % (92-99) Arterial Blood pH 7.49 (7.35-7.45) Arterial Blood pCO2 at Patient Temp 31 mmHg (35-46) Arterial Blood pO2 at Patient Temp 85 mmHg (65-108) Arterial Blood HCO3 23 mmol/L (21-28) Arterial Blood Base Excess 1 mmol/L (-3-3) FiO2 35 Laboratory Tests Test 03/27/17 13:50 03/27/17 14:54 03/27/17 16:52 03/27/17 21:45 Troponin I Quantitative 1.082 ng/mL (0.000-0.055) Glucose (Fingerstick) 251 mg/dL (70-99) 311 mg/dL (70-99) Urine Opiates Screen Neg (NEG) Urine Methadone Screen Neg (NEG) Urine Barbiturates Neg (NEG) Urine Phencyclidine Screen Neg (NEG) Urine Amphetamine/Methamphetamine Neg (NEG) Urine Benzodiazepines Screen Pos (NEG) Urine Cocaine Screen Neg (NEG) Urine Cannabinoids Screen Neg (NEG) Urine Ethyl Alcohol Neg (NEG) Test 03/28/17 05:22 03/28/17 05:35 03/28/17 09:30 Glucose (Fingerstick) 362 mg/dL (70-99) White Blood Count 9.9 x10^3/uL (4.0-11.0) Red Blood Count 4.40 x10^6/uL (3.50-5.40) Hemoglobin 13.1 g/dL (12.0-15.5) Hematocrit 39.5 % (36.0-47.0) Mean Corpuscular Volume 90 fL (79-100) Mean Corpuscular Hemoglobin 30 pg (25-35) Mean Corpuscular Hemoglobin Concent 33 g/dL (31-37) Red Cell Distribution Width 14.7 % (11.5-14.5) Platelet Count 277 x10^3/uL (140-400) Neutrophils (%) (Auto) 85 % (31-73) Lymphocytes (%) (Auto) 11 % (24-48) Monocytes (%) (Auto) 4 % (0-9) Eosinophils (%) (Auto) 0 % (0-3) Basophils (%) (Auto) 0 % (0-3) Neutrophils # (Auto) 8.4 x10^3uL (1.8-7.7) Lymphocytes # (Auto) 1.1 x10^3/uL (1.0-4.8) Monocytes # (Auto) 0.4 x10^3/uL (0.0-1.1) Eosinophils # (Auto) 0.0 x10^3/uL (0.0-0.7) Basophils # (Auto) 0.0 x10^3/uL (0.0-0.2) Sodium Level 141 mmol/L (136-145) Potassium Level 3.3 mmol/L (3.5-5.1) Chloride Level 105 mmol/L (98-107) Carbon Dioxide Level 24 mmol/L (21-32) Anion Gap 12 (6-14) Blood Urea Nitrogen 12 mg/dL (7-20) Creatinine 1.0 mg/dL (0.6-1.0) Estimated GFR (Cockcroft-Gault) 64.6 Glucose Level 363 mg/dL (70-99) Calcium Level 8.0 mg/dL (8.5-10.1) O2 Saturation 96 % (92-99) Arterial Blood pH 7.49 (7.35-7.45) Arterial Blood pCO2 at Patient Temp 31 mmHg (35-46) Arterial Blood pO2 at Patient Temp 85 mmHg (65-108) Arterial Blood HCO3 23 mmol/L (21-28) Arterial Blood Base Excess 1 mmol/L (-3-3) FiO2 35 Microbiology 03/26/17 Blood Culture - Preliminary, Resulted NO GROWTH AFTER 1 DAY Medications Current Medications Propofol (Diprivan) 200 mg 1X ONCE IV ; Start 03/27/17 at 00:15; Stop at 00:16; Status DC Fentanyl Citrate 30 ml @ 0 mls/hr CONT PRN PRN IV PROTOCOL; Start 03/26/17 at 23:30 Propofol (Diprivan) 200 mg 1X ONCE IV ; Start 03/27/17 at 00:15; Stop at 00:16; Status DC Midazolam HCl (Versed) 5 mg STK-MED ONCE .ROUTE ; Start 03/27/17 at 00:13; Stop 03/27/17 at 00:14; Status DC Propofol 50 ml @ As Directed STK-MED ONCE IV ; Start 03/27/17 at 00:14; Stop 03/27/17 at 00:15; Status DC Propofol 50 ml @ As Directed STK-MED ONCE IV ; Start 03/27/17 at 01:51; Stop 03/27/17 at 01:52; Status DC Propofol 50 ml @ 0 mls/hr 1X ONCE IV Last administered on 03/27/17 00:19; Start 03/27/17 at 02:00; Stop 03/27/17 at 02:01; Status DC Propofol 50 ml @ 0 mls/hr 1X ONCE IV Last administered on 03/27/17 01:13; Start 03/27/17 at 02:00; Stop 03/27/17 at 02:01; Status DC Ondansetron HCl (Zofran) 4 mg PRN Q8HRS PRN IV NAUSEA/VOMITING; Start at 02:15; Stop 03/28/17 at 02:14; Status DC Albuterol/ Ipratropium (Duoneb) 3 ml RTQID NEB Last administered on 03/27/17 19:43; Start 03/27/17 at 02:30; Stop 03/28/17 at 02:29; Status DC Insulin Aspart (NovoLOG) 0-5 UNITS TIDWMEALS SQ Last administered on 08:41; Start 03/27/17 at 08:00 Dextrose (Dextrose 50%-Water Syringe) 12.5 gm PRN Q15MIN PRN IV SEE COMMENTS; Start 03/27/17 at 02:15 Methylprednisolone Sodium Succinate (SOLU-Medrol 125MG VIAL) 125 mg 1X ONCE IV ; Start 03/27/17 at 02:30; Stop 03/27/17 at 02:31; Status DC Cefepime HCl 2 gm/ Sodium Chloride 100 ml @ 200 mls/hr 1X ONCE IV Last administered on 03/27/17 02:45; Start 03/27/17 at 02:30; Stop 03/27/17 at 02 :59; Status DC Vancomycin HCl (Vanco Per Pharmacy) 1 each PRN DAILY PRN MC SEE COMMENTS Last administered on 03/28/17 06:41; Start 03/27/17 at 02:15 Sodium Chloride 1,000 ml @ 100 mls/hr Q10H IV Last administered on 03/28/17 05:16; Start 03/27/17 at 02:15 Sodium Chloride 1,000 ml @ 1,000 mls/hr 1X ONCE IV Last administered on 03/27 02:51; Start 03/27/17 at 03:00; Stop 03/27/17 at 03:59; Status DC Propofol 100 ml @ 0 mls/hr CONT PRN IV SEE I/O RECORD Last administered on 05:16; Start 03/27/17 at 03:00 Vancomycin HCl 2 gm/Sodium Chloride 500 ml @ 250 mls/hr 1X ONCE IV Last administered on 03/27/17 04:30; Start 03/27/17 at 03:30; Stop 03/27/17 at 05 :29; Status DC Info (Do NOT chart on this placeholder) 1 each PRN DAILY PRN MC UNABLE TO RESPOND; Start 03/27/17 at 03:15 Pneumococcal Polyvalent Vaccine (Do NOT chart on this placeholder) 1 each PRN DAILY PRN MC UNABLE TO RESPOND; Start 03/27/17 at 03:15 Cefepime HCl 2 gm/ Sodium Chloride 100 ml @ 200 mls/hr Q12HR IV Last administered on 03/27/17 20:17; Start 03/27/17 at 09:00 Etomidate (Amidate) 20 mg STK-MED ONCE IV ; Start 03/27/17 at 05:29; Stop 06/01 at 05:30; Status DC Vecuronium Stafford (Norcuron Bolus) 10 mg STK-MED ONCE IV ; Start 03/27/17 at 05:29; Stop 03/27/17 at 05:30; Status DC Vancomycin HCl 1.5 gm/Sodium Chloride 500 ml @ 250 mls/hr Q24H IV Last administered on 03/28/17 05:17; Start 03/28/17 at 05:00 Vancomycin HCl 1 each 1X ONCE MC ; Start 03/29/17 at 04:30; Stop 03/29/17 at 04:31 Heparin Sodium/ Dextrose 500 ml @ 20 mls/hr CONT PRN IV SEE I/O RECORD Last administered on 03/27/17 10:19; Start 03/27/17 at 09:15; Stop 03/27/17 at 23 :10; Status DC Heparin Sodium (Porcine) (Heparin Sodium) 2,650 unit PRN Q6HRS PRN IV FOR UFH LEVEL LESS THAN 0.2 Last administered on 03/27/17 10:13; Start 03/27/17 at 09 :15; Stop 03/27/17 at 23:10; Status DC Lidocaine/Sodium Bicarbonate (Buffered Lidocaine 1%) 20 ml STK-MED ONCE IJ ; Start 03/27/17 at 10:50; Stop 03/27/17 at 10:51; Status DC Heparin Sodium/ Sodium Chloride 500 ml @ As Directed STK-MED ONCE .ROUTE ; Start 03/27/17 at 10:50; Stop 03/27/17 at 10:51; Status DC Lidocaine/Sodium Bicarbonate (Buffered Lidocaine 1%) 3 ml 1X ONCE IJ Last administered on 03/27/17 11:28; Start 03/27/17 at 11:00; Stop 03/27/17 at 11 :01; Status DC Heparin Sodium/ Sodium Chloride 60 unit 1X ONCE IV Last administered on 11:28; Start 03/27/17 at 11:00; Stop 03/27/17 at 11:01; Status DC Aspirin (Children'S Aspirin) 81 mg [id number] PO Last administered on 08:37; Start 03/27/17 at 12:00 Labetalol HCl (Normodyne) 20 mg PRN Q2HR PRN IVP HYPERTENSION, SEE COMMENTS Last administered on 03/28/17 05:33; Start 03/27/17 at 10:45 Furosemide (Lasix) 40 mg [id number] IVP Last administered on 03/28/17 08:38; Start 03/27/17 at 14:00 Magnesium Sulfate/ Dextrose 50 ml @ 25 mls/hr 1X ONCE IV Last administered on 03/27/17 14:58; Start 03/27/17 at 13:45; Stop 03/27/17 at 15:44; Status DC Atorvastatin Calcium (Lipitor) 20 mg QHS PO Last administered on 03/27/17 20: 17; Start 03/27/17 at 21:00 Iohexol (Omnipaque 300 Mg/ml) 100 ml STK-MED ONCE .ROUTE ; Start 03/27/17 at 15 :00; Stop 03/27/17 at 15:01; Status DC Lidocaine HCl 20 ml STK-MED ONCE .ROUTE ; Start 03/27/17 at 15:00; Stop at 15:01; Status DC Heparin Sodium/ Sodium Chloride 1,000 ml @ As Directed STK-MED ONCE .ROUTE ; Start 03/27/17 at 15:01; Stop 03/27/17 at 15:02; Status DC Methylprednisolone Sodium Succinate (SOLU-Medrol 125MG VIAL) 125 mg STK-MED ONCE .ROUTE ; Start 03/27/17 at 15:29; Stop 03/27/17 at 15:30; Status DC Famotidine (Pepcid) 20 mg STK-MED ONCE .ROUTE ; Start 03/27/17 at 15:29; Stop 03/27/17 at 15:30; Status DC Diphenhydramine HCl (Benadryl) 50 mg STK-MED ONCE .ROUTE ; Start 03/27/17 at 15 :30; Stop 03/27/17 at 15:31; Status DC Hydralazine HCl (Apresoline Inj) 20 mg STK-MED ONCE .ROUTE ; Start 03/27/17 at 15:50; Stop 03/27/17 at 15:51; Status DC Heparin Sodium/ Sodium Chloride 1,000 unit 1X ONCE IART Last administered on 03/27/17 16:00; Start 03/27/17 at 16:00; Stop 03/27/17 at 16:06; Status DC Iohexol (Omnipaque 300 Mg/ml) 94 ml 1X ONCE IART Last administered on 16:00; Start 03/27/17 at 16:00; Stop 03/27/17 at 16:06; Status DC Lidocaine HCl 20 ml 1X ONCE IJ Last administered on 03/27/17 16:00; Start 03/27/17 at 16:00; Stop 03/27/17 at 16:06; Status DC Hydralazine HCl (Apresoline Inj) 10 mg 1X ONCE IVP Last administered on 16:00; Start 03/27/17 at 16:00; Stop 03/27/17 at 16:06; Status DC Diphenhydramine HCl (Benadryl) 50 mg 1X ONCE IVP Last administered on 16:00; Start 03/27/17 at 16:00; Stop 03/27/17 at 16:06; Status DC Methylprednisolone Sodium Succinate (SOLU-Medrol 125MG VIAL) 125 mg 1X ONCE IV Last administered on 03/27/17 16:00; Start 03/27/17 at 16:00; Stop at 16:06; Status DC Famotidine (Pepcid) 20 mg 1X ONCE IVP Last administered on 03/27/17 16:00; Start 03/27/17 at 16:00; Stop 03/27/17 at 16:06; Status DC Info (Do NOT chart on this entry -- for MONITORING) 1 each PRN DAILY PRN MC SEE COMMENTS; Start 03/27/17 at 16:15; Stop 03/29/17 at 16:14 Potassium Chloride 50 ml @ 50 mls/hr Q1H IV Last administered on 03/28/17 08: 37; Start 03/28/17 at 08:30; Stop 03/28/17 at 10:29; Status DC Carvedilol (Coreg) 6.25 mg BIDWMEALS PO Last administered on 03/28/17 08:36; Start 03/28/17 at 08:30 Potassium Chloride (Klor-Con) 40 meq 1X ONCE PO Last administered on 08:37; Start 03/28/17 at 08:30; Stop 03/28/17 at 08:31; Status DC Losartan Potassium (Cozaar) 50 mg DAILY PO Last administered on 03/28/17 08: 37; Start 03/28/17 at 09:00 Pantoprazole Sodium (Protonix) 40 mg DAILYAC PO ; Start 03/28/17 at 08:30 Vitals/I & O Vital Sign - Last 24 Hours 03/27/17 03/27/17 03/27/17 03/27/17 11:48 12:00 12:00 13:00 Temp 98.1 98.1 Pulse 94 88 Resp 20 20 B/P (MAP) 147/76 (99) 154/83 (106) Pulse Ox 99 100 100 O2 Delivery Ventilator Ventilator Mechanical Ventilator Ventilator 03/27/17 03/27/17 03/27/17 03/27/17 13:51 15:00 16:00 16:01 Pulse 100 Pulse Ox 100 100 O2 Delivery Ventilator Ventilator Mechanical Ventilator O2 Flow Rate 15.0 03/27/17 03/27/17 03/27/1717 16:05 17:02 17:19 18:20 Pulse 75 100 96 Resp 20 20 20 B/P (MAP) 169/79 (109) 156/81 (106) Pulse Ox 96 100 100 99 O2 Delivery Ventilator Ventilator Ventilator Ventilator 03/27/17 03/27/17 03/27/17 03/27/17 19:00 19:39 20:00 20:00 Temp 99.7 99.7 Pulse 103 107 Resp 19 20 B/P (MAP) 173/87 (115) 170/98 (122) Pulse Ox 99 99 97 O2 Delivery Ventilator Ventilator Ventilator Mechanical Ventilator 03/27/17 03/27/17 03/27/17 03/27/17 20:16 21:00 22:00 23:00 Pulse 107 85 87 86 Resp 20 20 19 B/P (MAP) 170/98 172/90 (117) 159/80 (106) 164/85 (111) Pulse Ox 98 97 97 O2 Delivery Ventilator Ventilator Ventilator 03/27/17 03/27/17 03/27/17 03/28/17 23:14 23:36 23:59 00:01 Temp 99.1 99.1 Pulse 87 86 Resp 19 B/P (MAP) 164/85 130/79 (96) Pulse Ox 99 97 O2 Delivery Ventilator Mechanical Ventilator Ventilator 03/28/17 03/28/17 03/28/17 03/28/17 01:00 01:00 01:46 02:00 Pulse 80 81 77 Resp 12 19 20 B/P (MAP) 130/79 (96) 177/92 (120) 133/68 (89) Pulse Ox 94 97 99 97 O2 Delivery Ventilator Ventilator Ventilator Ventilator 03/28/17 03/28/17 03/28/17 03/28/17 03:00 03:18 03:19 04:00 Pulse 83 192 Resp 20 B/P (MAP) 192/97 (128) 111/97 Pulse Ox 100 99 O2 Delivery Ventilator Ventilator Mechanical Ventilator 03/28/17 03/28/17 03/28/17 03/28/17 04:00 05:00 05:33 05:50 Temp 98.5 98.5 Pulse 75 77 85 Resp 20 20 B/P (MAP) 145/76 (99) 174/95 (121) 174/95 Pulse Ox 98 100 99 O2 Delivery Ventilator Ventilator Ventilator 03/28/17 03/28/17 03/28/17 03/28/17 06:00 07:35 08:36 08:37 Pulse 75 75 75 Resp 20 B/P (MAP) 165/75 (105) 165/75 165/75 Pulse Ox 100 99 O2 Delivery Ventilator Ventilator 03/28/17 03/28/17 10:13 10:20 Pulse Ox 99 99 O2 Delivery Ventilator Ventilator DICK CHAMBERLAIN III DO Mar 28, 2017 11:32
[2017-03-28 11:44] LABS: PCO2 ABG 34 mmHg (35-46); PH ABG 7.42 (7.35-7.45); PO2 ABG 111 mmHg (65-108)
[2017-03-28 11:45] LABS: HCO3 ABG 22 mmol/L (21-28)
[2017-03-28 11:46] LABS: ALLEN TEST positive; FIO2 ABG 35; SAT O2 ABG 98 % (92-99)
--- NOTE | 2017-03-28 11:58 | PDOC ---
HUGO GALLAGHER SENIOUR INSIGHT MANAGER 03/28/17 1158: CARDIO Progress Notes Date and Time Date of Service 03/28/2017 Time of Evaluation 1130 Subjective Subjective: No Chest Pain, Other (off sedation, intubated, awake and nodding with questions) Vitals Vitals Vital Signs Date Time Temp Pulse Resp B/P (MAP) Pulse Ox O2 Delivery O2 Flow Rate FiO2 03/28/17 11:10 97 Ventilator 03/28/17 08:37 75 165/75 03/28/17 06:00 20 03/28/17 04:00 98.5 98.5 03/27/17 16:01 15.0 Weight Weight [ ] Laboratory Labs Laboratory Tests Test 03/27/17 13:50 03/27/17 14:54 03/27/17 16:52 03/27/17 21:45 Troponin I Quantitative 1.082 ng/mL (0.000-0.055) Glucose (Fingerstick) 251 mg/dL (70-99) 311 mg/dL (70-99) Urine Opiates Screen Neg (NEG) Urine Methadone Screen Neg (NEG) Urine Barbiturates Neg (NEG) Urine Phencyclidine Screen Neg (NEG) Urine Amphetamine/Methamphetamine Neg (NEG) Urine Benzodiazepines Screen Pos (NEG) Urine Cocaine Screen Neg (NEG) Urine Cannabinoids Screen Neg (NEG) Urine Ethyl Alcohol Neg (NEG) Test 03/28/17 05:22 03/28/17 05:35 03/28/17 09:30 Glucose (Fingerstick) 362 mg/dL (70-99) White Blood Count 9.9 x10^3/uL (4.0-11.0) Red Blood Count 4.40 x10^6/uL (3.50-5.40) Hemoglobin 13.1 g/dL (12.0-15.5) Hematocrit 39.5 % (36.0-47.0) Mean Corpuscular Volume 90 fL (79-100) Mean Corpuscular Hemoglobin 30 pg (25-35) Mean Corpuscular Hemoglobin Concent 33 g/dL (31-37) Red Cell Distribution Width 14.7 % (11.5-14.5) Platelet Count 277 x10^3/uL (140-400) Neutrophils (%) (Auto) 85 % (31-73) Lymphocytes (%) (Auto) 11 % (24-48) Monocytes (%) (Auto) 4 % (0-9) Eosinophils (%) (Auto) 0 % (0-3) Basophils (%) (Auto) 0 % (0-3) Neutrophils # (Auto) 8.4 x10^3uL (1.8-7.7) Lymphocytes # (Auto) 1.1 x10^3/uL (1.0-4.8) Monocytes # (Auto) 0.4 x10^3/uL (0.0-1.1) Eosinophils # (Auto) 0.0 x10^3/uL (0.0-0.7) Basophils # (Auto) 0.0 x10^3/uL (0.0-0.2) Sodium Level 141 mmol/L (136-145) Potassium Level 3.3 mmol/L (3.5-5.1) Chloride Level 105 mmol/L (98-107) Carbon Dioxide Level 24 mmol/L (21-32) Anion Gap 12 (6-14) Blood Urea Nitrogen 12 mg/dL (7-20) Creatinine 1.0 mg/dL (0.6-1.0) Estimated GFR (Cockcroft-Gault) 64.6 Glucose Level 363 mg/dL (70-99) Calcium Level 8.0 mg/dL (8.5-10.1) O2 Saturation 96 % (92-99) Arterial Blood pH 7.49 (7.35-7.45) Arterial Blood pCO2 at Patient Temp 31 mmHg (35-46) Arterial Blood pO2 at Patient Temp 85 mmHg (65-108) Arterial Blood HCO3 23 mmol/L (21-28) Arterial Blood Base Excess 1 mmol/L (-3-3) FiO2 35 Microbiology Micro Microbiology 03/26/17 Blood Culture - Preliminary, Resulted NO GROWTH AFTER 1 DAY Physical Exam HEENT: Neck Supple W Full Motion Chest: Symmetric LUNGS: Other (basilar crackles; intubated) Heart: S1S2, RRR (SR), other (distant heart sounds) Abdomen: Soft N/T Extremities: No Edema, No Calf Tenderness Neurology: alert, follow commands Assessment Assessment 1. Acute respiratory failure: intubated, weaning process underway. Pulmonary following 2. Sepsis: ID following 3. Accelerated HTN: labile, off sedation. 4. NSTEMI with Takotsubo: S/P LHC with no significant disease 5. NICM: stress-induced CM. 6. DM2 with nephropathy 7. Obesity/tobaccoism 8. 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 ASA. Start on coreg and losartan and statin PO once passed swallow eval. 2. Pt will need lifevest and be reevaluated in 3 months for AICD consideration. 3. Continue with lasix therapy. IV lopressor and vasotec while NPO. 4. smoking cessation, dietitian consult. Strict I & O, 2L FR. BYRON MCKENZIE MD 03/30/17 2320: CARDIO Progress Notes Plan Plan Late entry for 03/28 Pt. seen and examined. Agree with above TOBACCO STEMMER MACHINE note. HUGO GALLAGHER SENIOUR INSIGHT MANAGER Mar 28, 2017 11:58 BYRON MCKENZIE MD Mar 30, 2017 23:20
--- NOTE | 2017-03-28 13:49 | PDOC ---
PULMONARY PROGRESS NOTES Subjective sbt done, did well, extubated, on 02, tired, no cp, has more cough, is on cpap at night Vitals Vital Signs Date Time Temp Pulse Resp B/P (MAP) Pulse Ox O2 Delivery O2 Flow Rate FiO2 03/28/17 11:10 97 Ventilator 03/28/17 08:37 75 165/75 03/28/17 06:00 20 03/28/17 04:00 98.5 98.5 03/27/17 16:01 15.0 Comments ros as mentioned as above other sys otherwise neg ROS: No Nausea General: Alert, Oriented X4 HEENT: Other (nc at perrl. nose throat clear neck no lap, no thyromegaly) Lungs: Crackles Cardiovascular: S1, S2 Abdomen: Soft, Non-tender, Other (no mass) Neuro Exam: Alert Extremities: Other (edema) Skin: Warm Labs Laboratory Tests Test 03/26/17 23:24 03/26/17 23:31 03/27/17 00:49 03/27/17 01:20 White Blood Count 11.3 x10^3/uL (4.0-11.0) Red Blood Count 4.48 x10^6/uL (3.50-5.40) Hemoglobin 13.6 g/dL (12.0-15.5) Hematocrit 41.5 % (36.0-47.0) Mean Corpuscular Volume 93 fL (79-100) Mean Corpuscular Hemoglobin 30 pg (25-35) Mean Corpuscular Hemoglobin Concent 33 g/dL (31-37) Red Cell Distribution Width 14.5 % (11.5-14.5) Platelet Count 327 x10^3/uL (140-400) Neutrophils (%) (Auto) 30 % (31-73) Lymphocytes (%) (Auto) 62 % (24-48) Monocytes (%) (Auto) 5 % (0-9) Eosinophils (%) (Auto) 3 % (0-3) Basophils (%) (Auto) 1 % (0-3) Neutrophils # (Auto) 3.4 x10^3uL (1.8-7.7) Lymphocytes # (Auto) 7.0 x10^3/uL (1.0-4.8) Monocytes # (Auto) 0.5 x10^3/uL (0.0-1.1) Eosinophils # (Auto) 0.3 x10^3/uL (0.0-0.7) Basophils # (Auto) 0.1 x10^3/uL (0.0-0.2) Segmented Neutrophils % 28 % (35-66) Band Neutrophils % 1 % (0-9) Lymphocytes % 64 % (24-48) Monocytes % 4 % (0-10) Eosinophils % 3 % (0-5) Platelet Estimate Adequate (ADEQUATE) Sodium Level 136 mmol/L (136-145) Potassium Level 4.0 mmol/L (3.5-5.1) Chloride Level 102 mmol/L (98-107) Carbon Dioxide Level 23 mmol/L (21-32) Anion Gap 11 (6-14) Blood Urea Nitrogen 11 mg/dL (7-20) Creatinine 1.0 mg/dL (0.6-1.0) Estimated GFR (Cockcroft-Gault) 64.4 BUN/Creatinine Ratio 11 (6-20) Glucose Level 383 mg/dL (70-99) Lactic Acid Level 4.2 mmol/L (0.4-2.0) Calcium Level 8.4 mg/dL (8.5-10.1) Total Bilirubin 0.4 mg/dL (0.2-1.0) Aspartate Amino Transf (AST/SGOT) 64 U/L (15-37) Alanine Aminotransferase (ALT/SGPT) 69 U/L (14-59) Alkaline Phosphatase 90 U/L (46-116) Troponin I Quantitative 0.041 ng/mL (0.000-0.055) OH-Tgr-Q-Type Natriuretic Peptide 138 pg/mL (0-449) Total Protein 7.8 g/dL (6.4-8.2) Albumin 3.2 g/dL (3.4-5.0) Albumin/Globulin Ratio 0.7 (1.0-1.7) O2 Saturation 99 % (92-99) Arterial Blood pH 7.29 (7.35-7.45) Arterial Blood pCO2 at Patient Temp 52 mmHg (35-46) Arterial Blood pO2 at Patient Temp 379 mmHg (65-108) Arterial Blood HCO3 24 mmol/L (21-28) Arterial Blood Base Excess -3 mmol/L (-3-3) FiO2 70 Influenza Type A Antigen Negative (NEGATIVE) Influenza Type B Antigen Negative (NEGATIVE) Urine Collection Type Unknown Urine Color Yellow Urine Clarity Clear Urine pH 5.5 Urine Specific Garrison 1.020 Urine Protein >=300 mg/dL (NEG-TRACE) Urine Glucose (UA) >=1000 mg/dL (NEG) Urine Ketones (Stick) Negative mg/dL (NEG) Urine Blood Small (NEG) Urine Nitrite Negative (NEG) Urine Bilirubin Negative (NEG) Urine Urobilinogen Dipstick 0.2 mg/dL (0.2 mg/dL) Urine Leukocyte Esterase Negative (NEG) Urine RBC 6-10 /HPF (0-2) Urine WBC 1-4 /HPF (0-4) Urine Squamous Epithelial Cells Mod /LPF Urine Amorphous Sediment Present /HPF Urine Bacteria Moderate /HPF (0-FEW) Urine Hyaline Casts Few /HPF Urine Granular Casts Occasional /HPF Urine Mucus Mod /LPF Urine Opiates Screen Neg (NEG) Urine Methadone Screen Neg (NEG) Urine Barbiturates Neg (NEG) Urine Phencyclidine Screen Neg (NEG) Urine Amphetamine/Methamphetamine Neg (NEG) Urine Benzodiazepines Screen Pos (NEG) Urine Cocaine Screen Neg (NEG) Urine Cannabinoids Screen Neg (NEG) Urine Ethyl Alcohol Neg (NEG) Test 03/27/17 01:50 03/27/17 02:40 03/27/17 03:55 03/27/17 07:50 O2 Saturation 97 % (92-99) 98 % (92-99) Arterial Blood pH 7.43 (7.35-7.45) 7.44 (7.35-7.45) Arterial Blood pCO2 at Patient Temp 34 mmHg (35-46) 32 mmHg (35-46) Arterial Blood pO2 at Patient Temp 92 mmHg (65-108) 119 mmHg (65-108) Arterial Blood HCO3 22 mmol/L (21-28) 22 mmol/L (21-28) Arterial Blood Base Excess -1 mmol/L (-3-3) -2 mmol/L (-3-3) FiO2 35 35 Nasal Screen MRSA (PCR) Negative (Negative) Lactic Acid Level 3.4 mmol/L (0.4-2.0) Test 03/27/17 08:15 03/27/17 13:50 03/27/17 14:54 03/27/17 16:52 Sodium Level 141 mmol/L (136-145) Potassium Level 4.2 mmol/L (3.5-5.1) Chloride Level 105 mmol/L (98-107) Carbon Dioxide Level 25 mmol/L (21-32) Anion Gap 11 (6-14) Blood Urea Nitrogen 14 mg/dL (7-20) Creatinine 0.8 mg/dL (0.6-1.0) Estimated GFR (Cockcroft-Gault) 83.5 BUN/Creatinine Ratio 18 (6-20) Glucose Level 316 mg/dL (70-99) Calcium Level 8.2 mg/dL (8.5-10.1) Magnesium Level 1.7 mg/dL (1.8-2.4) Total Bilirubin 0.7 mg/dL (0.2-1.0) Aspartate Amino Transf (AST/SGOT) 68 U/L (15-37) Alanine Aminotransferase (ALT/SGPT) 67 U/L (14-59) Alkaline Phosphatase 79 U/L (46-116) Troponin I Quantitative 1.106 ng/mL (0.000-0.055) 1.082 ng/mL (0.000-0.055) Total Protein 6.4 g/dL (6.4-8.2) Albumin 3.0 g/dL (3.4-5.0) Albumin/Globulin Ratio 0.9 (1.0-1.7) Triglycerides Level 233 mg/dL (0-150) Cholesterol Level 192 mg/dL (0-200) LDL Cholesterol, Calculated 101 mg/dL (0-100) VLDL Cholesterol, Calculated 47 mg/dL (0-40) Non-HDL Cholesterol Calculated 148 mg/dL (0-129) HDL Cholesterol 44 mg/dL (40-60) Cholesterol/HDL Ratio 4.4 Thyroid Stimulating Hormone (TSH) 2.138 uIU/mL (0.358-3.74) Glucose (Fingerstick) 251 mg/dL (70-99) 311 mg/dL (70-99) Test 03/27/17 21:45 03/28/17 05:22 03/28/17 05:35 03/28/17 09:30 Urine Opiates Screen Neg (NEG) Urine Methadone Screen Neg (NEG) Urine Barbiturates Neg (NEG) Urine Phencyclidine Screen Neg (NEG) Urine Amphetamine/Methamphetamine Neg (NEG) Urine Benzodiazepines Screen Pos (NEG) Urine Cocaine Screen Neg (NEG) Urine Cannabinoids Screen Neg (NEG) Urine Ethyl Alcohol Neg (NEG) Glucose (Fingerstick) 362 mg/dL (70-99) White Blood Count 9.9 x10^3/uL (4.0-11.0) Red Blood Count 4.40 x10^6/uL (3.50-5.40) Hemoglobin 13.1 g/dL (12.0-15.5) Hematocrit 39.5 % (36.0-47.0) Mean Corpuscular Volume 90 fL (79-100) Mean Corpuscular Hemoglobin 30 pg (25-35) Mean Corpuscular Hemoglobin Concent 33 g/dL (31-37) Red Cell Distribution Width 14.7 % (11.5-14.5) Platelet Count 277 x10^3/uL (140-400) Neutrophils (%) (Auto) 85 % (31-73) Lymphocytes (%) (Auto) 11 % (24-48) Monocytes (%) (Auto) 4 % (0-9) Eosinophils (%) (Auto) 0 % (0-3) Basophils (%) (Auto) 0 % (0-3) Neutrophils # (Auto) 8.4 x10^3uL (1.8-7.7) Lymphocytes # (Auto) 1.1 x10^3/uL (1.0-4.8) Monocytes # (Auto) 0.4 x10^3/uL (0.0-1.1) Eosinophils # (Auto) 0.0 x10^3/uL (0.0-0.7) Basophils # (Auto) 0.0 x10^3/uL (0.0-0.2) Sodium Level 141 mmol/L (136-145) Potassium Level 3.3 mmol/L (3.5-5.1) Chloride Level 105 mmol/L (98-107) Carbon Dioxide Level 24 mmol/L (21-32) Anion Gap 12 (6-14) Blood Urea Nitrogen 12 mg/dL (7-20) Creatinine 1.0 mg/dL (0.6-1.0) Estimated GFR (Cockcroft-Gault) 64.6 Glucose Level 363 mg/dL (70-99) Calcium Level 8.0 mg/dL (8.5-10.1) O2 Saturation 96 % (92-99) Arterial Blood pH 7.49 (7.35-7.45) Arterial Blood pCO2 at Patient Temp 31 mmHg (35-46) Arterial Blood pO2 at Patient Temp 85 mmHg (65-108) Arterial Blood HCO3 23 mmol/L (21-28) Arterial Blood Base Excess 1 mmol/L (-3-3) FiO2 35 Test 03/28/17 11:27 O2 Saturation 98 % (92-99) Arterial Blood pH 7.42 (7.35-7.45) Arterial Blood pCO2 at Patient Temp 34 mmHg (35-46) Arterial Blood pO2 at Patient Temp 111 mmHg (65-108) Arterial Blood HCO3 22 mmol/L (21-28) Arterial Blood Base Excess -2 mmol/L (-3-3) FiO2 35 Laboratory Tests Test 03/27/17 13:50 03/27/17 14:54 03/27/17 16:52 03/27/17 21:45 Troponin I Quantitative 1.082 ng/mL (0.000-0.055) Glucose (Fingerstick) 251 mg/dL (70-99) 311 mg/dL (70-99) Urine Opiates Screen Neg (NEG) Urine Methadone Screen Neg (NEG) Urine Barbiturates Neg (NEG) Urine Phencyclidine Screen Neg (NEG) Urine Amphetamine/Methamphetamine Neg (NEG) Urine Benzodiazepines Screen Pos (NEG) Urine Cocaine Screen Neg (NEG) Urine Cannabinoids Screen Neg (NEG) Urine Ethyl Alcohol Neg (NEG) Test 03/28/17 05:22 03/28/17 05:35 03/28/17 09:30 03/28/17 11:27 Glucose (Fingerstick) 362 mg/dL (70-99) White Blood Count 9.9 x10^3/uL (4.0-11.0) Red Blood Count 4.40 x10^6/uL (3.50-5.40) Hemoglobin 13.1 g/dL (12.0-15.5) Hematocrit 39.5 % (36.0-47.0) Mean Corpuscular Volume 90 fL (79-100) Mean Corpuscular Hemoglobin 30 pg (25-35) Mean Corpuscular Hemoglobin Concent 33 g/dL (31-37) Red Cell Distribution Width 14.7 % (11.5-14.5) Platelet Count 277 x10^3/uL (140-400) Neutrophils (%) (Auto) 85 % (31-73) Lymphocytes (%) (Auto) 11 % (24-48) Monocytes (%) (Auto) 4 % (0-9) Eosinophils (%) (Auto) 0 % (0-3) Basophils (%) (Auto) 0 % (0-3) Neutrophils # (Auto) 8.4 x10^3uL (1.8-7.7) Lymphocytes # (Auto) 1.1 x10^3/uL (1.0-4.8) Monocytes # (Auto) 0.4 x10^3/uL (0.0-1.1) Eosinophils # (Auto) 0.0 x10^3/uL (0.0-0.7) Basophils # (Auto) 0.0 x10^3/uL (0.0-0.2) Sodium Level 141 mmol/L (136-145) Potassium Level 3.3 mmol/L (3.5-5.1) Chloride Level 105 mmol/L (98-107) Carbon Dioxide Level 24 mmol/L (21-32) Anion Gap 12 (6-14) Blood Urea Nitrogen 12 mg/dL (7-20) Creatinine 1.0 mg/dL (0.6-1.0) Estimated GFR (Cockcroft-Gault) 64.6 Glucose Level 363 mg/dL (70-99) Calcium Level 8.0 mg/dL (8.5-10.1) O2 Saturation 96 % (92-99) 98 % (92-99) Arterial Blood pH 7.49 (7.35-7.45) 7.42 (7.35-7.45) Arterial Blood pCO2 at Patient Temp 31 mmHg (35-46) 34 mmHg (35-46) Arterial Blood pO2 at Patient Temp 85 mmHg (65-108) 111 mmHg (65-108) Arterial Blood HCO3 23 mmol/L (21-28) 22 mmol/L (21-28) Arterial Blood Base Excess 1 mmol/L (-3-3) -2 mmol/L (-3-3) FiO2 35 35 Comments cxr reviewed, 1. Catheter placements as described above. 2. No acute infiltrates. 3. Possible tiny left pleural effusion Impression . IMPRESSION: 1. Acute respiratory failure, multifactorial. 2. sepsis. 3. Elevated troponin, non-ST segment elevation myocardial infarction, cath ok 4. Leukocytosis. 5. Type 2 diabetes. 6. Obesity. jj 7. smoker copd 8. nicm Plan . PLAN: 1. 02 titration 2. Continue antibiotics per ID. 3. No need for steroids. 4. bronchodilator, ics 5. start cpap qhs 6. quit smoking for ever discussed w rn, rt, pt QUANG CASTORENA MD Mar 28, 2017 13:49
[2017-03-28] MEDS: METOPROLOL TARTRATE 5 MG/5 ML VIAL. IVP SCH ×2 (13:52→18:25)
[2017-03-28] MEDS: ENALAPRILAT 1.25 MG/ML VIAL. IV SCH ×2 (13:53→18:26)
[2017-03-28] MEDS: BUDESONIDE 0.5 MG/2 ML NEBU. NEB SCH ×2 (16:05→19:48)
[2017-03-28] MEDS: IPRATRPIUM/ALBUTEROL 0.5/2.5MG 3 ML NEBU. NEB SCH ×2 (16:05→19:48)
[2017-03-28] MEDS: ATORVASTATIN CALCIUM 40 MG TABLET. PO SCH (20:47)
[2017-03-29] VITALS (12 sets, daily range): BP systolic 116–161; BP diastolic 47–82
[2017-03-29] MEDS: ENALAPRILAT 1.25 MG/ML VIAL. IV SCH ×3 (00:02→12:07)
[2017-03-29] MEDS: METOPROLOL TARTRATE 5 MG/5 ML VIAL. IVP SCH ×3 (00:03→12:07)
[2017-03-29] MEDS ORDERED: FUROSEMIDE 40 MG/4 ML VIAL. IVP ONE (00:30)
[2017-03-29] MEDS ORDERED: IPRATRPIUM/ALBUTEROL 0.5/2.5MG 3 ML NEBU. NEB ONE (00:30)
[2017-03-29 04:20] LABS: BASO % 0 % (0-3); EOS % 1 % (0-3); HEMATOCRIT 36.1 % (36.0-47.0); HEMOGLOBIN 11.8 g/dL (12.0-15.5); LYMPH # 3.1 x10^3/uL (1.0-4.8); LYMPH % 24 % (24-48); MEAN CORPUSCULAR HEMOGLOBIN 30 pg (25-35); MEAN CORPUSCULAR HGB CONC 33 g/dL (31-37); MEAN CORPUSCULAR VOLUME 90 fL (79-100); MONO % 9 % (0-9); NEUT % 66 % (31-73); PLATELET COUNT 221 x10^3/uL (140-400); RED CELL DISTRIBUTION WIDTH 14.6 % (11.5-14.5); WHITE BLOOD COUNT 13.3 x10^3/uL (4.0-11.0)
[2017-03-29 04:38] LABS: CALCIUM 7.8 mg/dL (8.5-10.1); CREATININE 0.9 mg/dL (0.6-1.0); GFR 72.9; POTASSIUM 3.2 mmol/L (3.5-5.1)
[2017-03-29] MEDS: VANCOMYCIN 1.5 GM in IV NORMAL SALINE 500ML BAG 500 ML IV SCH ×2 (05:26→23:10)
[2017-03-29] MEDS: VANCOMYCIN PER PHARMACY MC PRN (05:37)
[2017-03-29] MEDS: PANTOPRAZOLE 40 MG TABLET.DR. PO SCH (07:42)
[2017-03-29] MEDS: ASPIRIN CHEWABLE 81 MG TABLET. PO SCH (07:42)
[2017-03-29] MEDS: FUROSEMIDE 40 MG/4 ML VIAL. IVP SCH (07:42)
[2017-03-29] MEDS: CEFEPIME HCL 2 GM in IV NORMAL SALINE 100ML 100 ML IV SCH ×2 (07:42→20:40)
[2017-03-29] MEDS: IV NORMAL SALINE 1000ML BAG 1,000 ML IV SCH (07:43)
[2017-03-29] MEDS: INSULIN ASPART 300 UNITS/3 ML INSULN.PEN SQ SCH ×3 (07:44→17:18)
[2017-03-29] MEDS: BUDESONIDE 0.5 MG/2 ML NEBU. NEB SCH ×2 (08:07→20:31)
[2017-03-29] MEDS: IPRATRPIUM/ALBUTEROL 0.5/2.5MG 3 ML NEBU. NEB SCH ×4 (08:07→20:31)
--- NOTE | 2017-03-29 09:46 | PDOC ---
Infectious Disease Note Subjective Subjective s/p extubated yesterday, Off O2 and SpO2 92% on RA + cough, denies CP or SOA ROS ROS GEN: Denies fevers, chills, sweats GI: Denies n/v/d NEURO: Denies confusion Vital Sign Vital Signs Vital Signs Date Time Temp Pulse Resp B/P (MAP) Pulse Ox O2 Delivery O2 Flow Rate FiO2 03/29/17 08:15 96 Nasal Cannula 2.0 03/29/17 06:11 77 22 155/79 (104) 03/29/17 04:02 98.2 98.2 Physical Exam PHYSICAL EXAM GENERAL: Propped up in bed, relaxed appearance HEENT: PERRL, OC/OP dry NECK: Supple LUNGS: Clear HEART: S1 and S2 ABD: Soft, NT, Obese : Mortensen EXT: No edema, no cyanosis WARP DYEING VAT TENDER: Alert, responding appropriately SKIN: No rash RIJ (03/27). clean Labs Lab Laboratory Tests Test 03/28/17 11:27 03/28/17 13:51 03/28/17 18:16 03/29/17 04:10 O2 Saturation 98 % (92-99) Arterial Blood pH 7.42 (7.35-7.45) Arterial Blood pCO2 at Patient Temp 34 mmHg (35-46) Arterial Blood pO2 at Patient Temp 111 mmHg (65-108) Arterial Blood HCO3 22 mmol/L (21-28) Arterial Blood Base Excess -2 mmol/L (-3-3) FiO2 35 Glucose (Fingerstick) 281 mg/dL (70-99) 219 mg/dL (70-99) White Blood Count 13.3 x10^3/uL (4.0-11.0) Red Blood Count 4.00 x10^6/uL (3.50-5.40) Hemoglobin 11.8 g/dL (12.0-15.5) Hematocrit 36.1 % (36.0-47.0) Mean Corpuscular Volume 90 fL (79-100) Mean Corpuscular Hemoglobin 30 pg (25-35) Mean Corpuscular Hemoglobin Concent 33 g/dL (31-37) Red Cell Distribution Width 14.6 % (11.5-14.5) Platelet Count 221 x10^3/uL (140-400) Neutrophils (%) (Auto) 66 % (31-73) Lymphocytes (%) (Auto) 24 % (24-48) Monocytes (%) (Auto) 9 % (0-9) Eosinophils (%) (Auto) 1 % (0-3) Basophils (%) (Auto) 0 % (0-3) Neutrophils # (Auto) 8.8 x10^3uL (1.8-7.7) Lymphocytes # (Auto) 3.1 x10^3/uL (1.0-4.8) Monocytes # (Auto) 1.1 x10^3/uL (0.0-1.1) Eosinophils # (Auto) 0.1 x10^3/uL (0.0-0.7) Basophils # (Auto) 0.0 x10^3/uL (0.0-0.2) Sodium Level 147 mmol/L (136-145) Potassium Level 3.2 mmol/L (3.5-5.1) Chloride Level 110 mmol/L (98-107) Carbon Dioxide Level 29 mmol/L (21-32) Anion Gap 8 (6-14) Blood Urea Nitrogen 14 mg/dL (7-20) Creatinine 0.9 mg/dL (0.6-1.0) Estimated GFR (Cockcroft-Gault) 72.9 Glucose Level 248 mg/dL (70-99) Calcium Level 7.8 mg/dL (8.5-10.1) Vancomycin Level Trough 9.4 mcg/mL (10.0-20.0) Vancomycin Last Dose Date 03/28/17 Vancomycin Last Dose Time 0500 IMPRESSION: 1. Mild linear atelectasis in both lungs. 2. Enlargement of the left lobe of the thyroid gland. 3. Calcific plaquing of the aorta and its branches including the coronary arteries. 4. No acute abdominal or pelvic abnormality is detected. Micro URINE CULTURE RES 1 Preliminary Comment No growth after 18-24 hours. BLOOD CULTURE Preliminary NO GROWTH AFTER 2 DAYS Objective Assessment Sepsis - better Lactic acidosis Respiratory failure s/p extubation, 03/28 Hypoxia - improved Leukocytosis, steroids 03/27 Encephalopathy - improved Cardiomyopathy Enlargement left lobe thyroid gland. TSH 2.138 Sulfa allergy - nausea Plan Plan of Care vanc , cefepime - try to wean soon Cultures neg so far supportive care Attending Co-Sign Attending Co-Sign The patient was seen and interviewed as well as examined at the bedside. The chart was reviewed. The case was discussed. Agree with the plan of care. CHANELLE SHANNON APRN Mar 29, 2017 09:46 DESHAUN HAWLEY MD Mar 29, 2017 13:21
--- NOTE | 2017-03-29 09:57 | RAD ---
Portable AP upright view CXR: Clinical indications: Respiratory failure. Comparison: March 28, 2017. Findings: ET tube and NG tube have been removed. Right IJ central line tip remains within the upper right atrium. There has been interval clearing of the small left sided pleural effusion seen previously. No new lung infiltrate or pulmonary edema or pneumothorax is seen. The heart size, pulmonary vasculature, mediastinum and both whitney are stable. Impression: No acute radiographic abnormality is seen.
[2017-03-29] MEDS: POTASSIUM CHLORIDE 20MEQ 50 ML IV SCH ×2 (10:00→12:09)
--- NOTE | 2017-03-29 10:34 | PDOC ---
PULMONARY PROGRESS NOTES Subjective sob better, no cp, has cough, she says she has jj, on 02 at night Vitals Vital Signs Date Time Temp Pulse Resp B/P (MAP) Pulse Ox O2 Delivery O2 Flow Rate FiO2 03/29/17 08:15 96 Nasal Cannula 2.0 03/29/17 06:11 77 22 155/79 (104) 03/29/17 04:02 98.2 98.2 Comments ros as mentioned as above other sys otherwise neg ROS: No Nausea General: Alert, Oriented X4 HEENT: Other (nc at perrl. nose throat clear neck no lap, no thyromegaly) Lungs: Crackles Cardiovascular: S1, S2 Abdomen: Soft, Non-tender, Other (no mass) Neuro Exam: Alert Extremities: Other (edema) Skin: Warm Labs Laboratory Tests Test 03/27/17 13:50 03/27/17 14:54 03/27/17 16:52 03/27/17 21:45 Troponin I Quantitative 1.082 ng/mL (0.000-0.055) Glucose (Fingerstick) 251 mg/dL (70-99) 311 mg/dL (70-99) Urine Opiates Screen Neg (NEG) Urine Methadone Screen Neg (NEG) Urine Barbiturates Neg (NEG) Urine Phencyclidine Screen Neg (NEG) Urine Amphetamine/Methamphetamine Neg (NEG) Urine Benzodiazepines Screen Pos (NEG) Urine Cocaine Screen Neg (NEG) Urine Cannabinoids Screen Neg (NEG) Urine Ethyl Alcohol Neg (NEG) Test 03/28/17 05:22 03/28/17 05:35 03/28/17 09:30 03/28/17 11:27 Glucose (Fingerstick) 362 mg/dL (70-99) White Blood Count 9.9 x10^3/uL (4.0-11.0) Red Blood Count 4.40 x10^6/uL (3.50-5.40) Hemoglobin 13.1 g/dL (12.0-15.5) Hematocrit 39.5 % (36.0-47.0) Mean Corpuscular Volume 90 fL (79-100) Mean Corpuscular Hemoglobin 30 pg (25-35) Mean Corpuscular Hemoglobin Concent 33 g/dL (31-37) Red Cell Distribution Width 14.7 % (11.5-14.5) Platelet Count 277 x10^3/uL (140-400) Neutrophils (%) (Auto) 85 % (31-73) Lymphocytes (%) (Auto) 11 % (24-48) Monocytes (%) (Auto) 4 % (0-9) Eosinophils (%) (Auto) 0 % (0-3) Basophils (%) (Auto) 0 % (0-3) Neutrophils # (Auto) 8.4 x10^3uL (1.8-7.7) Lymphocytes # (Auto) 1.1 x10^3/uL (1.0-4.8) Monocytes # (Auto) 0.4 x10^3/uL (0.0-1.1) Eosinophils # (Auto) 0.0 x10^3/uL (0.0-0.7) Basophils # (Auto) 0.0 x10^3/uL (0.0-0.2) Sodium Level 141 mmol/L (136-145) Potassium Level 3.3 mmol/L (3.5-5.1) Chloride Level 105 mmol/L (98-107) Carbon Dioxide Level 24 mmol/L (21-32) Anion Gap 12 (6-14) Blood Urea Nitrogen 12 mg/dL (7-20) Creatinine 1.0 mg/dL (0.6-1.0) Estimated GFR (Cockcroft-Gault) 64.6 Glucose Level 363 mg/dL (70-99) Hemoglobin A1c 11.0 % (4.8-5.6) Calcium Level 8.0 mg/dL (8.5-10.1) O2 Saturation 96 % (92-99) 98 % (92-99) Arterial Blood pH 7.49 (7.35-7.45) 7.42 (7.35-7.45) Arterial Blood pCO2 at Patient Temp 31 mmHg (35-46) 34 mmHg (35-46) Arterial Blood pO2 at Patient Temp 85 mmHg (65-108) 111 mmHg (65-108) Arterial Blood HCO3 23 mmol/L (21-28) 22 mmol/L (21-28) Arterial Blood Base Excess 1 mmol/L (-3-3) -2 mmol/L (-3-3) FiO2 35 35 Test 03/28/17 13:51 03/28/17 18:16 10/14/17 04:10 Glucose (Fingerstick) 281 mg/dL (70-99) 219 mg/dL (70-99) White Blood Count 13.3 x10^3/uL (4.0-11.0) Red Blood Count 4.00 x10^6/uL (3.50-5.40) Hemoglobin 11.8 g/dL (12.0-15.5) Hematocrit 36.1 % (36.0-47.0) Mean Corpuscular Volume 90 fL (79-100) Mean Corpuscular Hemoglobin 30 pg (25-35) Mean Corpuscular Hemoglobin Concent 33 g/dL (31-37) Red Cell Distribution Width 14.6 % (11.5-14.5) Platelet Count 221 x10^3/uL (140-400) Neutrophils (%) (Auto) 66 % (31-73) Lymphocytes (%) (Auto) 24 % (24-48) Monocytes (%) (Auto) 9 % (0-9) Eosinophils (%) (Auto) 1 % (0-3) Basophils (%) (Auto) 0 % (0-3) Neutrophils # (Auto) 8.8 x10^3uL (1.8-7.7) Lymphocytes # (Auto) 3.1 x10^3/uL (1.0-4.8) Monocytes # (Auto) 1.1 x10^3/uL (0.0-1.1) Eosinophils # (Auto) 0.1 x10^3/uL (0.0-0.7) Basophils # (Auto) 0.0 x10^3/uL (0.0-0.2) Sodium Level 147 mmol/L (136-145) Potassium Level 3.2 mmol/L (3.5-5.1) Chloride Level 110 mmol/L (98-107) Carbon Dioxide Level 29 mmol/L (21-32) Anion Gap 8 (6-14) Blood Urea Nitrogen 14 mg/dL (7-20) Creatinine 0.9 mg/dL (0.6-1.0) Estimated GFR (Cockcroft-Gault) 72.9 Glucose Level 248 mg/dL (70-99) Calcium Level 7.8 mg/dL (8.5-10.1) Vancomycin Level Trough 9.4 mcg/mL (10.0-20.0) Vancomycin Last Dose Date 10/13/17 Vancomycin Last Dose Time 0500 Laboratory Tests Test 03/28/17 11:27 03/28/17 13:51 03/28/17 18:16 03/29/17 04:10 O2 Saturation 98 % (92-99) Arterial Blood pH 7.42 (7.35-7.45) Arterial Blood pCO2 at Patient Temp 34 mmHg (35-46) Arterial Blood pO2 at Patient Temp 111 mmHg (65-108) Arterial Blood HCO3 22 mmol/L (21-28) Arterial Blood Base Excess -2 mmol/L (-3-3) FiO2 35 Glucose (Fingerstick) 281 mg/dL (70-99) 219 mg/dL (70-99) White Blood Count 13.3 x10^3/uL (4.0-11.0) Red Blood Count 4.00 x10^6/uL (3.50-5.40) Hemoglobin 11.8 g/dL (12.0-15.5) Hematocrit 36.1 % (36.0-47.0) Mean Corpuscular Volume 90 fL (79-100) Mean Corpuscular Hemoglobin 30 pg (25-35) Mean Corpuscular Hemoglobin Concent 33 g/dL (31-37) Red Cell Distribution Width 14.6 % (11.5-14.5) Platelet Count 221 x10^3/uL (140-400) Neutrophils (%) (Auto) 66 % (31-73) Lymphocytes (%) (Auto) 24 % (24-48) Monocytes (%) (Auto) 9 % (0-9) Eosinophils (%) (Auto) 1 % (0-3) Basophils (%) (Auto) 0 % (0-3) Neutrophils # (Auto) 8.8 x10^3uL (1.8-7.7) Lymphocytes # (Auto) 3.1 x10^3/uL (1.0-4.8) Monocytes # (Auto) 1.1 x10^3/uL (0.0-1.1) Eosinophils # (Auto) 0.1 x10^3/uL (0.0-0.7) Basophils # (Auto) 0.0 x10^3/uL (0.0-0.2) Sodium Level 147 mmol/L (136-145) Potassium Level 3.2 mmol/L (3.5-5.1) Chloride Level 110 mmol/L (98-107) Carbon Dioxide Level 29 mmol/L (21-32) Anion Gap 8 (6-14) Blood Urea Nitrogen 14 mg/dL (7-20) Creatinine 0.9 mg/dL (0.6-1.0) Estimated GFR (Cockcroft-Gault) 72.9 Glucose Level 248 mg/dL (70-99) Calcium Level 7.8 mg/dL (8.5-10.1) Vancomycin Level Trough 9.4 mcg/mL (10.0-20.0) Vancomycin Last Dose Date 03/28/17 Vancomycin Last Dose Time 0500 Comments cxr reviewed, 1. Catheter placements as described above. 2. No acute infiltrates. 3. Possible tiny left pleural effusion Impression . IMPRESSION: 1. Acute respiratory failure, multifactorial. 2. sepsis. 3. Elevated troponin, non-ST segment elevation myocardial infarction, cath no cad 4. Leukocytosis. 5. Type 2 diabetes. 6. Obesity. jj 7. smoker copd 8. nicm Plan . PLAN: 1. 02 titration 2. Continue antibiotics per ID. 3. No need for steroids. 4. bronchodilator, ics 5. start cpap qhs, the importance of jj tx discussed 6. quit smoking for ever discussed w rn, rt, pt QUANG CASTORENA MD Mar 29, 2017 10:34
--- NOTE | 2017-03-29 11:27 | PDOC ---
PROGRESS NOTES Chief Complaint Chief Complaint Respiratory failure Hypoxia CHF-Stress induced cardiomyopathy COPD History of Present Illness History of Present Illness Pt seen at bedside in the ICU. She is off the ventilator and is breathing on her own. NC in place. Pt continues to improve and is doing much better today. She is able to speak in full sentences and hold a conversation. Pt reports that along with many other stressors in her life, her son who was recently released from alf after serving 3 years, has now been sentenced to another 25 years in alf. She states that this has caused her a great deal of stress. Consistent with echo and cath findings of Stress induced cardiomyopathy, no signs of CAD. Will treat depression with Prozac, which patient agrees to. K was 3.2 this AM-IV replacement given. Continue to monitor Na. Cardio, pulm, and ID following. Reports mild SOB, but denies CP. No acute complaints at this time. Continue ICU monitoring. Vitals Vitals Vital Signs Date Time Temp Pulse Resp B/P (MAP) Pulse Ox O2 Delivery O2 Flow Rate FiO2 03/29/17 08:15 96 Nasal Cannula 2.0 03/29/17 06:11 77 22 155/79 (104) 03/29/17 04:02 98.2 98.2 Physical Exam Physical Exam Patient is awake, breathing on her own, and speaking in full sentences without difficulty General: Alert, Oriented X3, Cooperative, No acute distress, Other Heart: Regular rate (SR), No murmurs, Other (distant heart sounds) Lungs: Crackles Abdomen: Soft, Other (obese) Extremities: No cyanosis, Other Skin: No breakdown Labs LABS Laboratory Tests Test 03/28/17 11:27 03/28/17 13:51 03/28/17 18:16 03/29/17 04:10 O2 Saturation 98 % (92-99) Arterial Blood pH 7.42 (7.35-7.45) Arterial Blood pCO2 at Patient Temp 34 mmHg (35-46) Arterial Blood pO2 at Patient Temp 111 mmHg (65-108) Arterial Blood HCO3 22 mmol/L (21-28) Arterial Blood Base Excess -2 mmol/L (-3-3) FiO2 35 Glucose (Fingerstick) 281 mg/dL (70-99) 219 mg/dL (70-99) White Blood Count 13.3 x10^3/uL (4.0-11.0) Red Blood Count 4.00 x10^6/uL (3.50-5.40) Hemoglobin 11.8 g/dL (12.0-15.5) Hematocrit 36.1 % (36.0-47.0) Mean Corpuscular Volume 90 fL (79-100) Mean Corpuscular Hemoglobin 30 pg (25-35) Mean Corpuscular Hemoglobin Concent 33 g/dL (31-37) Red Cell Distribution Width 14.6 % (11.5-14.5) Platelet Count 221 x10^3/uL (140-400) Neutrophils (%) (Auto) 66 % (31-73) Lymphocytes (%) (Auto) 24 % (24-48) Monocytes (%) (Auto) 9 % (0-9) Eosinophils (%) (Auto) 1 % (0-3) Basophils (%) (Auto) 0 % (0-3) Neutrophils # (Auto) 8.8 x10^3uL (1.8-7.7) Lymphocytes # (Auto) 3.1 x10^3/uL (1.0-4.8) Monocytes # (Auto) 1.1 x10^3/uL (0.0-1.1) Eosinophils # (Auto) 0.1 x10^3/uL (0.0-0.7) Basophils # (Auto) 0.0 x10^3/uL (0.0-0.2) Sodium Level 147 mmol/L (136-145) Potassium Level 3.2 mmol/L (3.5-5.1) Chloride Level 110 mmol/L (98-107) Carbon Dioxide Level 29 mmol/L (21-32) Anion Gap 8 (6-14) Blood Urea Nitrogen 14 mg/dL (7-20) Creatinine 0.9 mg/dL (0.6-1.0) Estimated GFR (Cockcroft-Gault) 72.9 Glucose Level 248 mg/dL (70-99) Calcium Level 7.8 mg/dL (8.5-10.1) Vancomycin Level Trough 9.4 mcg/mL (10.0-20.0) Vancomycin Last Dose Date 03/28/17 Vancomycin Last Dose Time 0500 Review of Systems Review of Systems Gen: +fatigue, No fevers or chills CV: No CP or palp Resp: + mild SOB, no wheezing Assessment and Plan Assessmemt and Plan Problems Medical Problems: (1) COPD (chronic obstructive pulmonary disease) Status: Acute (2) Hypoxia Status: Acute (3) Lactic acidosis Status: Acute (4) Respiratory failure Status: Acute Assessment: Respiratory failure-in the ICU Hypoxia CHF-Stress induced cardiomyopathy COPD Lactic acidosis Depression hypokalemia Plan: Seems depressed about sons recent incarceration-Prozac 20 PO q24 K of 3.2 this AM-IV replacement Extubated and breathing on her own, NC in place cont abx cont BTs recheck labs pt/ot home meds Pulm, cardio, and ID following Appreciate subspec input-Will move forward with their plan of care Problems: Comment Review of Relevant I have reviewed the following items la nena (where applicable) has been applied. Labs Laboratory Tests Test 03/27/17 13:50 03/27/17 14:54 03/27/17 16:52 03/27/17 21:45 Troponin I Quantitative 1.082 ng/mL (0.000-0.055) Glucose (Fingerstick) 251 mg/dL (70-99) 311 mg/dL (70-99) Urine Opiates Screen Neg (NEG) Urine Methadone Screen Neg (NEG) Urine Barbiturates Neg (NEG) Urine Phencyclidine Screen Neg (NEG) Urine Amphetamine/Methamphetamine Neg (NEG) Urine Benzodiazepines Screen Pos (NEG) Urine Cocaine Screen Neg (NEG) Urine Cannabinoids Screen Neg (NEG) Urine Ethyl Alcohol Neg (NEG) Test 03/28/17 05:22 03/28/17 05:35 03/28/17 09:30 03/28/17 11:27 Glucose (Fingerstick) 362 mg/dL (70-99) White Blood Count 9.9 x10^3/uL (4.0-11.0) Red Blood Count 4.40 x10^6/uL (3.50-5.40) Hemoglobin 13.1 g/dL (12.0-15.5) Hematocrit 39.5 % (36.0-47.0) Mean Corpuscular Volume 90 fL (79-100) Mean Corpuscular Hemoglobin 30 pg (25-35) Mean Corpuscular Hemoglobin Concent 33 g/dL (31-37) Red Cell Distribution Width 14.7 % (11.5-14.5) Platelet Count 277 x10^3/uL (140-400) Neutrophils (%) (Auto) 85 % (31-73) Lymphocytes (%) (Auto) 11 % (24-48) Monocytes (%) (Auto) 4 % (0-9) Eosinophils (%) (Auto) 0 % (0-3) Basophils (%) (Auto) 0 % (0-3) Neutrophils # (Auto) 8.4 x10^3uL (1.8-7.7) Lymphocytes # (Auto) 1.1 x10^3/uL (1.0-4.8) Monocytes # (Auto) 0.4 x10^3/uL (0.0-1.1) Eosinophils # (Auto) 0.0 x10^3/uL (0.0-0.7) Basophils # (Auto) 0.0 x10^3/uL (0.0-0.2) Sodium Level 141 mmol/L (136-145) Potassium Level 3.3 mmol/L (3.5-5.1) Chloride Level 105 mmol/L (98-107) Carbon Dioxide Level 24 mmol/L (21-32) Anion Gap 12 (6-14) Blood Urea Nitrogen 12 mg/dL (7-20) Creatinine 1.0 mg/dL (0.6-1.0) Estimated GFR (Cockcroft-Gault) 64.6 Glucose Level 363 mg/dL (70-99) Hemoglobin A1c 11.0 % (4.8-5.6) Calcium Level 8.0 mg/dL (8.5-10.1) O2 Saturation 96 % (92-99) 98 % (92-99) Arterial Blood pH 7.49 (7.35-7.45) 7.42 (7.35-7.45) Arterial Blood pCO2 at Patient Temp 31 mmHg (35-46) 34 mmHg (35-46) Arterial Blood pO2 at Patient Temp 85 mmHg (65-108) 111 mmHg (65-108) Arterial Blood HCO3 23 mmol/L (21-28) 22 mmol/L (21-28) Arterial Blood Base Excess 1 mmol/L (-3-3) -2 mmol/L (-3-3) FiO2 35 35 Test 03/28/17 13:51 03/28/17 18:16 03/29/17 04:10 Glucose (Fingerstick) 281 mg/dL (70-99) 219 mg/dL (70-99) White Blood Count 13.3 x10^3/uL (4.0-11.0) Red Blood Count 4.00 x10^6/uL (3.50-5.40) Hemoglobin 11.8 g/dL (12.0-15.5) Hematocrit 36.1 % (36.0-47.0) Mean Corpuscular Volume 90 fL (79-100) Mean Corpuscular Hemoglobin 30 pg (25-35) Mean Corpuscular Hemoglobin Concent 33 g/dL (31-37) Red Cell Distribution Width 14.6 % (11.5-14.5) Platelet Count 221 x10^3/uL (140-400) Neutrophils (%) (Auto) 66 % (31-73) Lymphocytes (%) (Auto) 24 % (24-48) Monocytes (%) (Auto) 9 % (0-9) Eosinophils (%) (Auto) 1 % (0-3) Basophils (%) (Auto) 0 % (0-3) Neutrophils # (Auto) 8.8 x10^3uL (1.8-7.7) Lymphocytes # (Auto) 3.1 x10^3/uL (1.0-4.8) Monocytes # (Auto) 1.1 x10^3/uL (0.0-1.1) Eosinophils # (Auto) 0.1 x10^3/uL (0.0-0.7) Basophils # (Auto) 0.0 x10^3/uL (0.0-0.2) Sodium Level 147 mmol/L (136-145) Potassium Level 3.2 mmol/L (3.5-5.1) Chloride Level 110 mmol/L (98-107) Carbon Dioxide Level 29 mmol/L (21-32) Anion Gap 8 (6-14) Blood Urea Nitrogen 14 mg/dL (7-20) Creatinine 0.9 mg/dL (0.6-1.0) Estimated GFR (Cockcroft-Gault) 72.9 Glucose Level 248 mg/dL (70-99) Calcium Level 7.8 mg/dL (8.5-10.1) Vancomycin Level Trough 9.4 mcg/mL (10.0-20.0) Vancomycin Last Dose Date 03/28/17 Vancomycin Last Dose Time 0500 Laboratory Tests Test 03/28/17 11:27 03/28/17 13:51 03/28/17 18:16 03/29/17 04:10 O2 Saturation 98 % (92-99) Arterial Blood pH 7.42 (7.35-7.45) Arterial Blood pCO2 at Patient Temp 34 mmHg (35-46) Arterial Blood pO2 at Patient Temp 111 mmHg (65-108) Arterial Blood HCO3 22 mmol/L (21-28) Arterial Blood Base Excess -2 mmol/L (-3-3) FiO2 35 Glucose (Fingerstick) 281 mg/dL (70-99) 219 mg/dL (70-99) White Blood Count 13.3 x10^3/uL (4.0-11.0) Red Blood Count 4.00 x10^6/uL (3.50-5.40) Hemoglobin 11.8 g/dL (12.0-15.5) Hematocrit 36.1 % (36.0-47.0) Mean Corpuscular Volume 90 fL (79-100) Mean Corpuscular Hemoglobin 30 pg (25-35) Mean Corpuscular Hemoglobin Concent 33 g/dL (31-37) Red Cell Distribution Width 14.6 % (11.5-14.5) Platelet Count 221 x10^3/uL (140-400) Neutrophils (%) (Auto) 66 % (31-73) Lymphocytes (%) (Auto) 24 % (24-48) Monocytes (%) (Auto) 9 % (0-9) Eosinophils (%) (Auto) 1 % (0-3) Basophils (%) (Auto) 0 % (0-3) Neutrophils # (Auto) 8.8 x10^3uL (1.8-7.7) Lymphocytes # (Auto) 3.1 x10^3/uL (1.0-4.8) Monocytes # (Auto) 1.1 x10^3/uL (0.0-1.1) Eosinophils # (Auto) 0.1 x10^3/uL (0.0-0.7) Basophils # (Auto) 0.0 x10^3/uL (0.0-0.2) Sodium Level 147 mmol/L (136-145) Potassium Level 3.2 mmol/L (3.5-5.1) Chloride Level 110 mmol/L (98-107) Carbon Dioxide Level 29 mmol/L (21-32) Anion Gap 8 (6-14) Blood Urea Nitrogen 14 mg/dL (7-20) Creatinine 0.9 mg/dL (0.6-1.0) Estimated GFR (Cockcroft-Gault) 72.9 Glucose Level 248 mg/dL (70-99) Calcium Level 7.8 mg/dL (8.5-10.1) Vancomycin Level Trough 9.4 mcg/mL (10.0-20.0) Vancomycin Last Dose Date 03/28/17 Vancomycin Last Dose Time 0500 Microbiology 03/26/17 Blood Culture - Preliminary, Resulted NO GROWTH AFTER 2 DAYS 03/27/17 Urine Culture - Preliminary, Resulted 03/27/17 Urine Culture Result 1 ([facility]) - Preliminary, Resulted Medications Current Medications Propofol (Diprivan) 200 mg 1X ONCE IV ; Start 03/27/17 at 00:15; Stop at 00:16; Status DC Fentanyl Citrate 30 ml @ 0 mls/hr CONT PRN PRN IV PROTOCOL; Start 03/26/17 at 23:30 Propofol (Diprivan) 200 mg 1X ONCE IV ; Start 03/27/17 at 00:15; Stop at 00:16; Status DC Midazolam HCl (Versed) 5 mg STK-MED ONCE .ROUTE ; Start 03/27/17 at 00:13; Stop 03/27/17 at 00:14; Status DC Propofol 50 ml @ As Directed STK-MED ONCE IV ; Start 03/27/17 at 00:14; Stop 03/27/17 at 00:15; Status DC Propofol 50 ml @ As Directed STK-MED ONCE IV ; Start 03/27/17 at 01:51; Stop 03/27/17 at 01:52; Status DC Propofol 50 ml @ 0 mls/hr 1X ONCE IV Last administered on 03/27/17 00:19; Start 03/27/17 at 02:00; Stop 03/27/17 at 02:01; Status DC Propofol 50 ml @ 0 mls/hr 1X ONCE IV Last administered on 03/27/17 01:13; Start 03/27/17 at 02:00; Stop 03/27/17 at 02:01; Status DC Ondansetron HCl (Zofran) 4 mg PRN Q8HRS PRN IV NAUSEA/VOMITING; Start at 02:15; Stop 03/28/17 at 02:14; Status DC Albuterol/ Ipratropium (Duoneb) 3 ml RTQID NEB Last administered on 03/27/17 19:43; Start 03/27/17 at 02:30; Stop 03/28/17 at 02:29; Status DC Insulin Aspart (NovoLOG) 0-5 UNITS TIDWMEALS SQ Last administered on 07:44; Start 03/27/17 at 08:00 Dextrose (Dextrose 50%-Water Syringe) 12.5 gm PRN Q15MIN PRN IV SEE COMMENTS; Start 03/27/17 at 02:15 Methylprednisolone Sodium Succinate (SOLU-Medrol 125MG VIAL) 125 mg 1X ONCE IV ; Start 03/27/17 at 02:30; Stop 03/27/17 at 02:31; Status DC Cefepime HCl 2 gm/ Sodium Chloride 100 ml @ 200 mls/hr 1X ONCE IV Last administered on 03/27/17 02:45; Start 03/27/17 at 02:30; Stop 03/27/17 at 02 :59; Status DC Vancomycin HCl (Vanco Per Pharmacy) 1 each PRN DAILY PRN MC SEE COMMENTS Last administered on 03/29/17 05:37; Start 03/27/17 at 02:15 Sodium Chloride 1,000 ml @ 50 mls/hr Q20H IV Last administered on 03/28/17 18:28; Start 03/27/17 at 02:15 Sodium Chloride 1,000 ml @ 1,000 mls/hr 1X ONCE IV Last administered on 03/27 02:51; Start 03/27/17 at 03:00; Stop 03/27/17 at 03:59; Status DC Propofol 100 ml @ 0 mls/hr CONT PRN IV SEE I/O RECORD Last administered on 05:16; Start 03/27/17 at 03:00 Vancomycin HCl 2 gm/Sodium Chloride 500 ml @ 250 mls/hr 1X ONCE IV Last administered on 03/27/17 04:30; Start 03/27/17 at 03:30; Stop 03/27/17 at 05 :29; Status DC Info (Do NOT chart on this placeholder) 1 each PRN DAILY PRN MC UNABLE TO RESPOND; Start 03/27/17 at 03:15 Pneumococcal Polyvalent Vaccine (Do NOT chart on this placeholder) 1 each PRN DAILY PRN MC UNABLE TO RESPOND; Start 03/27/17 at 03:15 Cefepime HCl 2 gm/ Sodium Chloride 100 ml @ 200 mls/hr Q12HR IV Last administered on 03/29/17 07:42; Start 03/27/17 at 09:00 Etomidate (Amidate) 20 mg STK-MED ONCE IV ; Start 03/27/17 at 05:29; Stop 06/01 at 05:30; Status DC Vecuronium [place] (Norcuron Bolus) 10 mg STK-MED ONCE IV ; Start 03/27/17 at 05:29; Stop 03/27/17 at 05:30; Status DC Vancomycin HCl 1.5 gm/Sodium Chloride 500 ml @ 250 mls/hr Q24H IV Last administered on 03/28/17 05:17; Start 03/28/17 at 05:00; Stop 03/29/17 at 05 :16; Status DC Vancomycin HCl 1 each 1X ONCE MC Last administered on 03/29/17 04:30; Start 03/29/17 at 04:30; Stop 03/29/17 at 04:31; Status DC Heparin Sodium/ Dextrose 500 ml @ 20 mls/hr CONT PRN IV SEE I/O RECORD Last administered on 03/27/17 10:19; Start 03/27/17 at 09:15; Stop 03/27/17 at 23 :10; Status DC Heparin Sodium (Porcine) (Heparin Sodium) 2,650 unit PRN Q6HRS PRN IV FOR UFH LEVEL LESS THAN 0.2 Last administered on 03/27/17 10:13; Start 03/27/17 at 09 :15; Stop 03/27/17 at 23:10; Status DC Lidocaine/Sodium Bicarbonate (Buffered Lidocaine 1%) 20 ml STK-MED ONCE IJ ; Start 03/27/17 at 10:50; Stop 03/27/17 at 10:51; Status DC Heparin Sodium/ Sodium Chloride 500 ml @ As Directed STK-MED ONCE .ROUTE ; Start 03/27/17 at 10:50; Stop 03/27/17 at 10:51; Status DC Lidocaine/Sodium Bicarbonate (Buffered Lidocaine 1%) 3 ml 1X ONCE IJ Last administered on 03/27/17 11:28; Start 03/27/17 at 11:00; Stop 03/27/17 at 11 :01; Status DC Heparin Sodium/ Sodium Chloride 60 unit 1X ONCE IV Last administered on 11:28; Start 03/27/17 at 11:00; Stop 03/27/17 at 11:01; Status DC Aspirin (Children'S Aspirin) 81 mg [id number] PO Last administered on 07:42; Start 03/27/17 at 12:00 Labetalol HCl (Normodyne) 20 mg PRN Q2HR PRN IVP HYPERTENSION, SEE COMMENTS Last administered on 03/28/17 05:33; Start 03/27/17 at 10:45 Furosemide (Lasix) 40 mg BID92 IVP Last administered on 03/28/17 08:38; Start 03/27/17 at 14:00; Stop 03/28/17 at 11:59; Status DC Magnesium Sulfate/ Dextrose 50 ml @ 25 mls/hr 1X ONCE IV Last administered on 03/27/17 14:58; Start 03/27/17 at 13:45; Stop 03/27/17 at 15:44; Status DC Atorvastatin Calcium (Lipitor) 20 mg QHS PO Last administered on 03/27/17 20: 17; Start 03/27/17 at 21:00 Iohexol (Omnipaque 300 Mg/ml) 100 ml STK-MED ONCE .ROUTE ; Start 03/27/17 at 15 :00; Stop 03/27/17 at 15:01; Status DC Lidocaine HCl 20 ml STK-MED ONCE .ROUTE ; Start 03/27/17 at 15:00; Stop at 15:01; Status DC Heparin Sodium/ Sodium Chloride 1,000 ml @ As Directed STK-MED ONCE .ROUTE ; Start 03/27/17 at 15:01; Stop 03/27/17 at 15:02; Status DC Methylprednisolone Sodium Succinate (SOLU-Medrol 125MG VIAL) 125 mg STK-MED ONCE .ROUTE ; Start 03/27/17 at 15:29; Stop 03/27/17 at 15:30; Status DC Famotidine (Pepcid) 20 mg STK-MED ONCE .ROUTE ; Start 03/27/17 at 15:29; Stop 03/27/17 at 15:30; Status DC Diphenhydramine HCl (Benadryl) 50 mg STK-MED ONCE .ROUTE ; Start 03/27/17 at 15 :30; Stop 03/27/17 at 15:31; Status DC Hydralazine HCl (Apresoline Inj) 20 mg STK-MED ONCE .ROUTE ; Start 03/27/17 at 15:50; Stop 03/27/17 at 15:51; Status DC Heparin Sodium/ Sodium Chloride 1,000 unit 1X ONCE IART Last administered on 03/27/17 16:00; Start 03/27/17 at 16:00; Stop 03/27/17 at 16:06; Status DC Iohexol (Omnipaque 300 Mg/ml) 94 ml 1X ONCE IART Last administered on 16:00; Start 03/27/17 at 16:00; Stop 03/27/17 at 16:06; Status DC Lidocaine HCl 20 ml 1X ONCE IJ Last administered on 03/27/17 16:00; Start 03/27/17 at 16:00; Stop 03/27/17 at 16:06; Status DC Hydralazine HCl (Apresoline Inj) 10 mg 1X ONCE IVP Last administered on 16:00; Start 03/27/17 at 16:00; Stop 03/27/17 at 16:06; Status DC Diphenhydramine HCl (Benadryl) 50 mg 1X ONCE IVP Last administered on 16:00; Start 03/27/17 at 16:00; Stop 03/27/17 at 16:06; Status DC Methylprednisolone Sodium Succinate (SOLU-Medrol 125MG VIAL) 125 mg 1X ONCE IV Last administered on 03/27/17 16:00; Start 03/27/17 at 16:00; Stop at 16:06; Status DC Famotidine (Pepcid) 20 mg 1X ONCE IVP Last administered on 03/27/17 16:00; Start 03/27/17 at 16:00; Stop 03/27/17 at 16:06; Status DC Info (Do NOT chart on this entry -- for MONITORING) 1 each PRN DAILY PRN MC SEE COMMENTS; Start 03/27/17 at 16:15; Stop 03/29/17 at 16:14 Potassium Chloride 50 ml @ 50 mls/hr Q1H IV Last administered on 03/28/17 09: 30; Start 03/28/17 at 08:30; Stop 03/28/17 at 10:29; Status DC Carvedilol (Coreg) 6.25 mg BIDWMEALS PO Last administered on 03/28/17 08:36; Start 03/28/17 at 08:30; Stop 03/28/17 at 11:56; Status DC Potassium Chloride (Klor-Con) 40 meq 1X ONCE PO Last administered on 08:37; Start 03/28/17 at 08:30; Stop 03/28/17 at 08:31; Status DC Losartan Potassium (Cozaar) 50 mg DAILY PO Last administered on 03/28/17 08: 37; Start 03/28/17 at 09:00; Stop 03/28/17 at 11:56; Status DC Pantoprazole Sodium (Protonix) 40 mg DAILYAC PO Last administered on 07:42; Start 03/28/17 at 08:30 Carvedilol (Coreg) 6.25 mg BIDWMEALS PO ; Start 03/29/17 at 17:00 Losartan Potassium (Cozaar) 50 mg DAILY PO ; Start 03/30/17 at 09:00 Metoprolol Tartrate (Lopressor) 5 mg Q6HRS IVP Last administered on 03/29/17 04:05; Start 03/28/17 at 12:00; Stop 03/29/17 at 13:00 Enalaprilat (Vasotec) 1.25 mg Q6HRS IV Last administered on 03/29/17 04:05; Start 03/28/17 at 12:00; Stop 03/29/17 at 13:00 Furosemide (Lasix) 40 mg DAILY IVP Last administered on 03/29/17 07:42; Start 03/29/17 at 09:00 Albuterol/ Ipratropium (Duoneb) 3 ml RTQID NEB Last administered on 03/29/17 08:07; Start 03/28/17 at 14:00 Budesonide (Pulmicort) 0.5 mg RTBID NEB Last administered on 03/29/17 08:07; Start 03/28/17 at 14:00 Furosemide (Lasix) 40 mg 1X ONCE IVP Last administered on 03/29/17 00:26; Start 03/29/17 at 00:30; Stop 03/29/17 at 00:31; Status DC Albuterol/ Ipratropium (Duoneb) 3 ml 1X ONCE NEB Last administered on 00:26; Start 03/29/17 at 00:30; Stop 03/29/17 at 00:31; Status DC Vancomycin HCl 1.5 gm/Sodium Chloride 500 ml @ 250 mls/hr Q18H IV Last administered on 03/29/17 05:26; Start 03/29/17 at 06:00 Vancomycin HCl 1 each 1X ONCE MC ; Start 03/31/17 at 11:30; Stop 03/31/17 at 11:31 Potassium Chloride 50 ml @ 50 mls/hr Q1H IV ; Start 03/29/17 at 09:00; Stop at 10:59; Status DC Vitals/I & O Vital Sign - Last 24 Hours 03/28/17 03/28/17 03/28/17 03/28/17 12:00 13:00 13:52 13:53 Pulse 75 75 75 75 Resp 20 20 B/P (MAP) 172/74 (106) 154/76 (102) 165/75 165/75 Pulse Ox 100 100 O2 Delivery Ventilator Ventilator 03/28/17 03/28/17 03/28/17 03/28/17 14:00 15:00 16:00 16:09 Pulse 75 75 75 Resp 20 20 20 B/P (MAP) 145/57 (86) 104/51 (68) 123/55 (77) Pulse Ox 100 100 100 97 O2 Delivery Ventilator Ventilator Ventilator Nasal Cannula O2 Flow Rate 2.0 03/28/17 03/28/17 03/28/17 03/28/17 17:00 18:00 18:25 18:26 Pulse 75 75 75 75 Resp 20 20 B/P (MAP) 129/61 (83) 116/61 (79) 165/75 165/75 Pulse Ox 100 100 O2 Delivery Ventilator Ventilator 03/28/17 03/28/17 03/28/17 03/28/17 19:00 19:49 20:00 21:00 Temp 98.4 98.4 Pulse 82 76 75 Resp 20 18 18 B/P (MAP) 122/55 (77) 118/53 (74) 98/76 (83) Pulse Ox 94 96 95 96 O2 Delivery Nasal Cannula Nasal Cannula Nasal Cannula Nasal Cannula O2 Flow Rate 2.0 2.0 2.0 2.0 03/28/17 03/28/17 03/28/17 03/29/17 22:00 23:00 23:13 00:01 Temp 97.2 97.2 Pulse 80 78 75 Resp 20 20 36 B/P (MAP) 120/49 (72) 138/48 (78) 142/69 (93) Pulse Ox 99 100 97 O2 Delivery Nasal Cannula Nasal Cannula Nasal Cannula O2 Flow Rate 2.0 2.0 2.0 03/29/17 03/29/17 03/29/17 03/29/17 00:02 00:03 00:39 01:00 Pulse 78 78 76 Resp 22 B/P (MAP) 138/48 138/48 144/67 (92) Pulse Ox 96 94 O2 Delivery Nasal Cannula Nasal Cannula O2 Flow Rate 2.0 2.0 03/29/17 03/29/17 03/29/17 03/29/17 02:10 03:05 04:02 04:05 Temp 98.2 98.2 Pulse 71 78 82 82 Resp 20 24 20 B/P (MAP) 123/55 (77) 126/47 (73) 140/65 (90) 140/65 Pulse Ox 98 98 100 O2 Delivery Nasal Cannula Nasal Cannula Nasal Cannula O2 Flow Rate 2.0 2.0 2.0 03/29/17 03/29/17 03/29/17 03/29/17 04:05 05:00 06:11 08:09 Pulse 82 78 77 Resp 24 22 B/P (MAP) 140/65 152/67 (95) 155/79 (104) Pulse Ox 96 95 96 O2 Delivery Nasal Cannula Nasal Cannula Nasal Cannula O2 Flow Rate 2.0 2.0 2.0 03/29/17 08:15 Pulse Ox 96 O2 Delivery Nasal Cannula O2 Flow Rate 2.0 DICK CHAMBERLAIN III DO Mar 29, 2017 11:27
[2017-03-29] MEDS: FLUoxetine HCL 20 MG CAPSULE PO SCH (12:06)
[2017-03-29] MEDS: CARVEDILOL 6.25 MG TABLET. PO SCH (17:16)
[2017-03-29] MEDS: ATORVASTATIN CALCIUM 40 MG TABLET. PO SCH (20:40)
[2017-03-30 03:40] VITALS: BP 170/70
[2017-03-30 06:01] LABS: BASO # 0.1 x10^3/uL (0.0-0.2); BASO % 1 % (0-3); EOS % 5 % (0-3); HEMATOCRIT 36.4 % (36.0-47.0); LYMPH # 2.7 x10^3/uL (1.0-4.8); LYMPH % 27 % (24-48); MEAN CORPUSCULAR HEMOGLOBIN 30 pg (25-35); MEAN CORPUSCULAR HGB CONC 33 g/dL (31-37); MEAN CORPUSCULAR VOLUME 91 fL (79-100); MONO % 9 % (0-9); NEUT % 59 % (31-73); PLATELET COUNT 202 x10^3/uL (140-400); RED CELL DISTRIBUTION WIDTH 14.7 % (11.5-14.5)
[2017-03-30 06:26] LABS: CREATININE 0.7 mg/dL (0.6-1.0); GFR 97.4; POTASSIUM 3.4 mmol/L (3.5-5.1)
[2017-03-30 07:40] VITALS: BP 172/86
[2017-03-30] MEDS: VANCOMYCIN PER PHARMACY MC PRN (07:45)
[2017-03-30] MEDS: IPRATRPIUM/ALBUTEROL 0.5/2.5MG 3 ML NEBU. NEB SCH ×4 (07:49→19:20)
[2017-03-30] MEDS: BUDESONIDE 0.5 MG/2 ML NEBU. NEB SCH ×2 (07:49→19:20)
[2017-03-30] MEDS: FUROSEMIDE 40 MG/4 ML VIAL. IVP SCH (08:18)
[2017-03-30] MEDS: CEFEPIME HCL 2 GM in IV NORMAL SALINE 100ML 100 ML IV SCH ×2 (08:18→21:19)
[2017-03-30] MEDS: PANTOPRAZOLE 40 MG TABLET.DR. PO SCH (08:19)
[2017-03-30] MEDS: FLUoxetine HCL 20 MG CAPSULE PO SCH (08:19)
[2017-03-30] MEDS: LOSARTAN POTASSIUM 50 MG TABLET. PO SCH (08:19)
[2017-03-30] MEDS: CARVEDILOL 6.25 MG TABLET. PO SCH ×2 (08:19→18:11)
[2017-03-30] MEDS: ASPIRIN CHEWABLE 81 MG TABLET. PO SCH (08:19)
[2017-03-30] MEDS: INSULIN ASPART 300 UNITS/3 ML INSULN.PEN SQ SCH ×3 (08:29→18:14)
--- NOTE | 2017-03-30 09:43 | RAD ---
Portable AP upright view CXR: Clinical indications: Respiratory failure. Comparison: March 29, 2017. Findings: There is a new finding of mild blunting of the left lateral costophrenic angle which may be due to to overlying soft tissues but a small left-sided pleural effusion is certainly possible. No acute lung infiltrate or pulmonary edema is seen. No pneumothorax is evident. The heart size, pulmonary vasculature, mediastinum and both whitney are stable. Impression: Small left-sided pleural effusion..
--- NOTE | 2017-03-30 10:25 | PDOC ---
Infectious Disease Note Subjective Subjective transferred out of ICU Comfortable Denies SOA/CP ROS ROS GEN: Denies fevers, chills, sweats CV: Denies chest pain GI: Denies n/v/d Vital Sign Vital Signs Vital Signs Date Time Temp Pulse Resp B/P (MAP) Pulse Ox O2 Delivery O2 Flow Rate FiO2 03/30/17 08:19 99 170/70 03/30/17 08:00 Nasal Cannula 2.0 03/30/17 07:49 93 03/30/17 07:40 98.1 20 98.1 Physical Exam PHYSICAL EXAM GENERAL: Sitting in the chair, relaxed appearance LUNGS: Clear HEART: S1 and S2 ABD: Obese, soft, NT, BS active : [place] EXT: No edema, no cyanosis CAN OPERATOR: Alert, oriented SKIN: No rash RI (03/27). clean Labs Lab Laboratory Tests Test 03/29/17 11:53 03/29/17 17:16 03/29/17 21:09 03/30/17 05:50 Glucose (Fingerstick) 284 mg/dL (70-99) 193 mg/dL (70-99) 198 mg/dL (70-99) White Blood Count 10.0 x10^3/uL (4.0-11.0) Red Blood Count 4.00 x10^6/uL (3.50-5.40) Hemoglobin 12.0 g/dL (12.0-15.5) Hematocrit 36.4 % (36.0-47.0) Mean Corpuscular Volume 91 fL (79-100) Mean Corpuscular Hemoglobin 30 pg (25-35) Mean Corpuscular Hemoglobin Concent 33 g/dL (31-37) Red Cell Distribution Width 14.7 % (11.5-14.5) Platelet Count 202 x10^3/uL (140-400) Neutrophils (%) (Auto) 59 % (31-73) Lymphocytes (%) (Auto) 27 % (24-48) Monocytes (%) (Auto) 9 % (0-9) Eosinophils (%) (Auto) 5 % (0-3) Basophils (%) (Auto) 1 % (0-3) Neutrophils # (Auto) 5.9 x10^3uL (1.8-7.7) Lymphocytes # (Auto) 2.7 x10^3/uL (1.0-4.8) Monocytes # (Auto) 0.9 x10^3/uL (0.0-1.1) Eosinophils # (Auto) 0.5 x10^3/uL (0.0-0.7) Basophils # (Auto) 0.1 x10^3/uL (0.0-0.2) Sodium Level 141 mmol/L (136-145) Potassium Level 3.4 mmol/L (3.5-5.1) Chloride Level 105 mmol/L (98-107) Carbon Dioxide Level 29 mmol/L (21-32) Anion Gap 7 (6-14) Blood Urea Nitrogen 13 mg/dL (7-20) Creatinine 0.7 mg/dL (0.6-1.0) Estimated GFR (Cockcroft-Gault) 97.4 Glucose Level 237 mg/dL (70-99) Calcium Level 8.0 mg/dL (8.5-10.1) Test 03/30/17 07:43 Glucose (Fingerstick) 220 mg/dL (70-99) Portable AP upright view CXR: Clinical indications: Respiratory failure. Comparison: March 29, 2017. Findings: There is a new finding of mild blunting of the left lateral costophrenic angle which may be due to to overlying soft tissues but a small left-sided pleural effusion is certainly possible. No acute lung infiltrate or pulmonary edema is seen. No pneumothorax is evident. The heart size, pulmonary vasculature, mediastinum and both whitney are stable. Impression: Small left-sided pleural effusion.. Micro URINE CULTURE RES 1 Preliminary No growth BLOOD CULTURE Preliminary NO GROWTH AFTER 3 DAYS Objective Assessment Sepsis Lactic acidosis Respiratory failure s/p extubation, 03/28 Hypoxia - improved Leukocytosis, steroids 03/27 Encephalopathy - improved Cardiomyopathy Enlargement left lobe thyroid gland. TSH 2.138 Sulfa allergy nausea Plan Plan of Care D/c vanc Cont cefepime but wean soon Cultures neg so far supportive care Attending Co-Sign Attending Co-Sign The patient was seen and interviewed as well as examined at the bedside. The chart was reviewed. The case was discussed. Agree with the plan of care. CHANELLE SHANNON APRN Mar 30, 2017 10:25 DESHAUN HAWLEY MD Mar 30, 2017 13:33
[2017-03-30 11:40] VITALS: BP 133/48
--- NOTE | 2017-03-30 13:56 | PDOC ---
PROGRESS NOTES Chief Complaint Chief Complaint Respiratory failure Hypoxia CHF-Stress induced cardiomyopathy COPD History of Present Illness History of Present Illness Pt was laying in bed and was conversant. She did not appear to be in any distress and was pleasantly conversant. Pt denies mention of any CP,N/V, or diarrhea. She has mild SOB but otherwise without complaint. She was given Prozac yesterday and says that it made her feel better and less depressed. Discussed plan of care with her and RN including getting a SNU eval and resolving her current medical conditions. CXR showed a small L pleural effusion. ID will cont. vanc and cefepime and ween off soon. Cultures were negative. Pulm will titrate the O2 and CPAP. No need for steroids and ensure ICS and bronchodilators Vitals Vitals Vital Signs Date Time Temp Pulse Resp B/P (MAP) Pulse Ox O2 Delivery O2 Flow Rate FiO2 03/30/17 11:59 94 Room Air 03/30/17 11:40 98.3 86 20 133/48 (76) 2.0 98.3 Physical Exam General: Alert, Oriented X3, Cooperative, No acute distress, Other Heart: Regular rate (SR), No murmurs, Other (distant heart sounds) Lungs: Crackles Abdomen: Soft, No masses, Other (obese) Extremities: No clubbing, No cyanosis Skin: No rashes, No breakdown, No significant lesion Labs LABS Laboratory Tests Test 03/29/17 17:16 03/29/17 21:09 03/30/17 05:50 03/30/17 07:43 Glucose (Fingerstick) 193 mg/dL (70-99) 198 mg/dL (70-99) 220 mg/dL (70-99) White Blood Count 10.0 x10^3/uL (4.0-11.0) Red Blood Count 4.00 x10^6/uL (3.50-5.40) Hemoglobin 12.0 g/dL (12.0-15.5) Hematocrit 36.4 % (36.0-47.0) Mean Corpuscular Volume 91 fL (79-100) Mean Corpuscular Hemoglobin 30 pg (25-35) Mean Corpuscular Hemoglobin Concent 33 g/dL (31-37) Red Cell Distribution Width 14.7 % (11.5-14.5) Platelet Count 202 x10^3/uL (140-400) Neutrophils (%) (Auto) 59 % (31-73) Lymphocytes (%) (Auto) 27 % (24-48) Monocytes (%) (Auto) 9 % (0-9) Eosinophils (%) (Auto) 5 % (0-3) Basophils (%) (Auto) 1 % (0-3) Neutrophils # (Auto) 5.9 x10^3uL (1.8-7.7) Lymphocytes # (Auto) 2.7 x10^3/uL (1.0-4.8) Monocytes # (Auto) 0.9 x10^3/uL (0.0-1.1) Eosinophils # (Auto) 0.5 x10^3/uL (0.0-0.7) Basophils # (Auto) 0.1 x10^3/uL (0.0-0.2) Sodium Level 141 mmol/L (136-145) Potassium Level 3.4 mmol/L (3.5-5.1) Chloride Level 105 mmol/L (98-107) Carbon Dioxide Level 29 mmol/L (21-32) Anion Gap 7 (6-14) Blood Urea Nitrogen 13 mg/dL (7-20) Creatinine 0.7 mg/dL (0.6-1.0) Estimated GFR (Cockcroft-Gault) 97.4 Glucose Level 237 mg/dL (70-99) Calcium Level 8.0 mg/dL (8.5-10.1) Review of Systems Review of Systems Pt complains of SOB Pt complains of fatigue Pt complains of hunger Assessment and Plan Assessmemt and Plan Problems Medical Problems: (1) COPD (chronic obstructive pulmonary disease) Status: Acute (2) Hypoxia Status: Acute (3) Lactic acidosis Status: Acute (4) Respiratory failure Status: Acute Respiratory failure Hypoxia CHF-Stress induced cardiomyopathy COPD Plan: consulted social service director for SNU eval cont monitoring recheck labs discussed plan with YOSELYN cont. hardeep bernardn appreciate subspecialist input Problems: Comment Review of Relevant I have reviewed the following items la nena (where applicable) has been applied. Labs Laboratory Tests Test 03/28/17 13:51 03/28/17 18:16 03/29/17 04:10 03/29/17 11:53 Glucose (Fingerstick) 281 mg/dL (70-99) 219 mg/dL (70-99) 284 mg/dL (70-99) White Blood Count 13.3 x10^3/uL (4.0-11.0) Red Blood Count 4.00 x10^6/uL (3.50-5.40) Hemoglobin 11.8 g/dL (12.0-15.5) Hematocrit 36.1 % (36.0-47.0) Mean Corpuscular Volume 90 fL (79-100) Mean Corpuscular Hemoglobin 30 pg (25-35) Mean Corpuscular Hemoglobin Concent 33 g/dL (31-37) Red Cell Distribution Width 14.6 % (11.5-14.5) Platelet Count 221 x10^3/uL (140-400) Neutrophils (%) (Auto) 66 % (31-73) Lymphocytes (%) (Auto) 24 % (24-48) Monocytes (%) (Auto) 9 % (0-9) Eosinophils (%) (Auto) 1 % (0-3) Basophils (%) (Auto) 0 % (0-3) Neutrophils # (Auto) 8.8 x10^3uL (1.8-7.7) Lymphocytes # (Auto) 3.1 x10^3/uL (1.0-4.8) Monocytes # (Auto) 1.1 x10^3/uL (0.0-1.1) Eosinophils # (Auto) 0.1 x10^3/uL (0.0-0.7) Basophils # (Auto) 0.0 x10^3/uL (0.0-0.2) Sodium Level 147 mmol/L (136-145) Potassium Level 3.2 mmol/L (3.5-5.1) Chloride Level 110 mmol/L (98-107) Carbon Dioxide Level 29 mmol/L (21-32) Anion Gap 8 (6-14) Blood Urea Nitrogen 14 mg/dL (7-20) Creatinine 0.9 mg/dL (0.6-1.0) Estimated GFR (Cockcroft-Gault) 72.9 Glucose Level 248 mg/dL (70-99) Calcium Level 7.8 mg/dL (8.5-10.1) Vancomycin Level Trough 9.4 mcg/mL (10.0-20.0) Vancomycin Last Dose Date 03/28/17 Vancomycin Last Dose Time 0500 Test 03/29/17 17:16 03/29/17 21:09 03/30/17 05:50 03/30/17 07:43 Glucose (Fingerstick) 193 mg/dL (70-99) 198 mg/dL (70-99) 220 mg/dL (70-99) White Blood Count 10.0 x10^3/uL (4.0-11.0) Red Blood Count 4.00 x10^6/uL (3.50-5.40) Hemoglobin 12.0 g/dL (12.0-15.5) Hematocrit 36.4 % (36.0-47.0) Mean Corpuscular Volume 91 fL (79-100) Mean Corpuscular Hemoglobin 30 pg (25-35) Mean Corpuscular Hemoglobin Concent 33 g/dL (31-37) Red Cell Distribution Width 14.7 % (11.5-14.5) Platelet Count 202 x10^3/uL (140-400) Neutrophils (%) (Auto) 59 % (31-73) Lymphocytes (%) (Auto) 27 % (24-48) Monocytes (%) (Auto) 9 % (0-9) Eosinophils (%) (Auto) 5 % (0-3) Basophils (%) (Auto) 1 % (0-3) Neutrophils # (Auto) 5.9 x10^3uL (1.8-7.7) Lymphocytes # (Auto) 2.7 x10^3/uL (1.0-4.8) Monocytes # (Auto) 0.9 x10^3/uL (0.0-1.1) Eosinophils # (Auto) 0.5 x10^3/uL (0.0-0.7) Basophils # (Auto) 0.1 x10^3/uL (0.0-0.2) Sodium Level 141 mmol/L (136-145) Potassium Level 3.4 mmol/L (3.5-5.1) Chloride Level 105 mmol/L (98-107) Carbon Dioxide Level 29 mmol/L (21-32) Anion Gap 7 (6-14) Blood Urea Nitrogen 13 mg/dL (7-20) Creatinine 0.7 mg/dL (0.6-1.0) Estimated GFR (Cockcroft-Gault) 97.4 Glucose Level 237 mg/dL (70-99) Calcium Level 8.0 mg/dL (8.5-10.1) Laboratory Tests Test 03/29/17 17:16 03/29/17 21:09 03/30/17 05:50 03/30/17 07:43 Glucose (Fingerstick) 193 mg/dL (70-99) 198 mg/dL (70-99) 220 mg/dL (70-99) White Blood Count 10.0 x10^3/uL (4.0-11.0) Red Blood Count 4.00 x10^6/uL (3.50-5.40) Hemoglobin 12.0 g/dL (12.0-15.5) Hematocrit 36.4 % (36.0-47.0) Mean Corpuscular Volume 91 fL (79-100) Mean Corpuscular Hemoglobin 30 pg (25-35) Mean Corpuscular Hemoglobin Concent 33 g/dL (31-37) Red Cell Distribution Width 14.7 % (11.5-14.5) Platelet Count 202 x10^3/uL (140-400) Neutrophils (%) (Auto) 59 % (31-73) Lymphocytes (%) (Auto) 27 % (24-48) Monocytes (%) (Auto) 9 % (0-9) Eosinophils (%) (Auto) 5 % (0-3) Basophils (%) (Auto) 1 % (0-3) Neutrophils # (Auto) 5.9 x10^3uL (1.8-7.7) Lymphocytes # (Auto) 2.7 x10^3/uL (1.0-4.8) Monocytes # (Auto) 0.9 x10^3/uL (0.0-1.1) Eosinophils # (Auto) 0.5 x10^3/uL (0.0-0.7) Basophils # (Auto) 0.1 x10^3/uL (0.0-0.2) Sodium Level 141 mmol/L (136-145) Potassium Level 3.4 mmol/L (3.5-5.1) Chloride Level 105 mmol/L (98-107) Carbon Dioxide Level 29 mmol/L (21-32) Anion Gap 7 (6-14) Blood Urea Nitrogen 13 mg/dL (7-20) Creatinine 0.7 mg/dL (0.6-1.0) Estimated GFR (Cockcroft-Gault) 97.4 Glucose Level 237 mg/dL (70-99) Calcium Level 8.0 mg/dL (8.5-10.1) Microbiology 03/26/17 Blood Culture - Preliminary, Resulted NO GROWTH AFTER 3 DAYS 03/27/17 Urine Culture - Final, Complete 03/27/17 Urine Culture Result 1 ([facility]) - Final, Complete Medications Current Medications Propofol (Diprivan) 200 mg 1X ONCE IV ; Start 03/27/17 at 00:15; Stop at 00:16; Status DC Fentanyl Citrate 30 ml @ 0 mls/hr CONT PRN PRN IV PROTOCOL; Start 03/26/17 at 23:30; Stop 03/30/17 at 07:37; Status DC Propofol (Diprivan) 200 mg 1X ONCE IV ; Start 03/27/17 at 00:15; Stop at 00:16; Status DC Midazolam HCl (Versed) 5 mg STK-MED ONCE .ROUTE ; Start 03/27/17 at 00:13; Stop 03/27/17 at 00:14; Status DC Propofol 50 ml @ As Directed STK-MED ONCE IV ; Start 03/27/17 at 00:14; Stop 03/27/17 at 00:15; Status DC Propofol 50 ml @ As Directed STK-MED ONCE IV ; Start 03/27/17 at 01:51; Stop 03/27/17 at 01:52; Status DC Propofol 50 ml @ 0 mls/hr 1X ONCE IV Last administered on 03/27/17 00:19; Start 03/27/17 at 02:00; Stop 03/27/17 at 02:01; Status DC Propofol 50 ml @ 0 mls/hr 1X ONCE IV Last administered on 03/27/17t 01:13; Start 03/27/17 at 02:00; Stop 03/27/17 at 02:01; Status DC Ondansetron HCl (Zofran) 4 mg PRN Q8HRS PRN IV NAUSEA/VOMITING; Start at 02:15; Stop 03/28/17 at 02:14; Status DC Albuterol/ Ipratropium (Duoneb) 3 ml RTQID NEB Last administered on 03/27/17 19:43; Start 03/27/17 at 02:30; Stop 03/28/17 at 02:29; Status DC Insulin Aspart (NovoLOG) 0-5 UNITS TIDWMEALS SQ Last administered on 12:45; Start 03/27/17 at 08:00 Dextrose (Dextrose 50%-Water Syringe) 12.5 gm PRN Q15MIN PRN IV SEE COMMENTS; Start 03/27/17 at 02:15 Methylprednisolone Sodium Succinate (SOLU-Medrol 125MG VIAL) 125 mg 1X ONCE IV ; Start 03/27/17 at 02:30; Stop 03/27/17 at 02:31; Status DC Cefepime HCl 2 gm/ Sodium Chloride 100 ml @ 200 mls/hr 1X ONCE IV Last administered on 03/27/17 02:45; Start 03/27/17 at 02:30; Stop 03/27/17 at 02 :59; Status DC Vancomycin HCl (Vanco Per Pharmacy) 1 each PRN DAILY PRN MC SEE COMMENTS Last administered on 03/30/17 07:45; Start 03/27/17 at 02:15; Stop 03/30/17 at 13 :32; Status DC Sodium Chloride 1,000 ml @ 50 mls/hr Q20H IV Last administered on 03/28/17 18:28; Start 03/27/17 at 02:15; Stop 03/29/17 at 16:12; Status DC Sodium Chloride 1,000 ml @ 1,000 mls/hr 1X ONCE IV Last administered on 03/27 02:51; Start 03/27/17 at 03:00; Stop 03/27/17 at 03:59; Status DC Propofol 100 ml @ 0 mls/hr CONT PRN IV SEE I/O RECORD Last administered on 05:16; Start 03/27/17 at 03:00; Stop 03/30/17 at 07:37; Status DC Vancomycin HCl 2 gm/Sodium Chloride 500 ml @ 250 mls/hr 1X ONCE IV Last administered on 03/27/17 04:30; Start 03/27/17 at 03:30; Stop 03/27/17 at 05 :29; Status DC Info (Do NOT chart on this placeholder) 1 each PRN DAILY PRN MC UNABLE TO RESPOND; Start 03/27/17 at 03:15; Status Cancel Pneumococcal Polyvalent Vaccine (Do NOT chart on this placeholder) 1 each PRN DAILY PRN MC UNABLE TO RESPOND; Start 03/27/17 at 03:15; Status Cancel Cefepime HCl 2 gm/ Sodium Chloride 100 ml @ 200 mls/hr Q12HR IV Last administered on 03/30/17 08:18; Start 03/27/17 at 09:00 Etomidate (Amidate) 20 mg STK-MED ONCE IV ; Start 03/27/17 at 05:29; Stop 06/01 at 05:30; Status DC Vecuronium Maben (Norcuron Bolus) 10 mg STK-MED ONCE IV ; Start 03/27/17 at 05:29; Stop 03/27/17 at 05:30; Status DC Vancomycin HCl 1.5 gm/Sodium Chloride 500 ml @ 250 mls/hr Q24H IV Last administered on 03/28/17 05:17; Start 03/28/17 at 05:00; Stop 03/29/17 at 05 :16; Status DC Vancomycin HCl 1 each 1X ONCE MC Last administered on 03/29/17 04:30; Start 03/29/17 at 04:30; Stop 03/29/17 at 04:31; Status DC Heparin Sodium/ Dextrose 500 ml @ 20 mls/hr CONT PRN IV SEE I/O RECORD Last administered on 03/27/17 10:19; Start 03/27/17 at 09:15; Stop 03/27/17 at 23 :10; Status DC Heparin Sodium (Porcine) (Heparin Sodium) 2,650 unit PRN Q6HRS PRN IV FOR UFH LEVEL LESS THAN 0.2 Last administered on 03/27/17 10:13; Start 03/27/17 at 09 :15; Stop 03/27/17 at 23:10; Status DC Lidocaine/Sodium Bicarbonate (Buffered Lidocaine 1%) 20 ml STK-MED ONCE IJ ; Start 03/27/17 at 10:50; Stop 03/27/17 at 10:51; Status DC Heparin Sodium/ Sodium Chloride 500 ml @ As Directed STK-MED ONCE .ROUTE ; Start 03/27/17 at 10:50; Stop 03/27/17 at 10:51; Status DC Lidocaine/Sodium Bicarbonate (Buffered Lidocaine 1%) 3 ml 1X ONCE IJ Last administered on 03/27/17 11:28; Start 03/27/17 at 11:00; Stop 03/27/17 at 11 :01; Status DC Heparin Sodium/ Sodium Chloride 60 unit 1X ONCE IV Last administered on 11:28; Start 03/27/17 at 11:00; Stop 03/27/17 at 11:01; Status DC Aspirin (Children'S Aspirin) 81 mg [id number] PO Last administered on 08:19; Start 03/27/17 at 12:00 Labetalol HCl (Normodyne) 20 mg PRN Q2HR PRN IVP HYPERTENSION, SEE COMMENTS Last administered on 03/28/17 05:33; Start 03/27/17 at 10:45 Furosemide (Lasix) 40 mg [id number] IVP Last administered on 03/28/17 08:38; Start 03/27/17 at 14:00; Stop 03/28/17 at 11:59; Status DC Magnesium Sulfate/ Dextrose 50 ml @ 25 mls/hr 1X ONCE IV Last administered on 03/27/17 14:58; Start 03/27/17 at 13:45; Stop 03/27/17 at 15:44; Status DC Atorvastatin Calcium (Lipitor) 20 mg QHS PO Last administered on 03/29/17 20: 40; Start 03/27/17 at 21:00 Iohexol (Omnipaque 300 Mg/ml) 100 ml STK-MED ONCE .ROUTE ; Start 03/27/17 at 15 :00; Stop 03/27/17 at 15:01; Status DC Lidocaine HCl 20 ml STK-MED ONCE .ROUTE ; Start 03/27/17 at 15:00; Stop at 15:01; Status DC Heparin Sodium/ Sodium Chloride 1,000 ml @ As Directed STK-MED ONCE .ROUTE ; Start 03/27/17 at 15:01; Stop 03/27/17 at 15:02; Status DC Methylprednisolone Sodium Succinate (SOLU-Medrol 125MG VIAL) 125 mg STK-MED ONCE .ROUTE ; Start 03/27/17 at 15:29; Stop 03/27/17 at 15:30; Status DC Famotidine (Pepcid) 20 mg STK-MED ONCE .ROUTE ; Start 03/27/17 at 15:29; Stop 03/27/17 at 15:30; Status DC Diphenhydramine HCl (Benadryl) 50 mg STK-MED ONCE .ROUTE ; Start 03/27/17 at 15 :30; Stop 03/27/17 at 15:31; Status DC Hydralazine HCl (Apresoline Inj) 20 mg STK-MED ONCE .ROUTE ; Start 03/27/17 at 15:50; Stop 03/27/17 at 15:51; Status DC Heparin Sodium/ Sodium Chloride 1,000 unit 1X ONCE IART Last administered on 03/27/17 16:00; Start 03/27/17 at 16:00; Stop 03/27/17 at 16:06; Status DC Iohexol (Omnipaque 300 Mg/ml) 94 ml 1X ONCE IART Last administered on 16:00; Start 03/27/17 at 16:00; Stop 03/27/17 at 16:06; Status DC Lidocaine HCl 20 ml 1X ONCE IJ Last administered on 03/27/17 16:00; Start 03/27/17 at 16:00; Stop 03/27/17 at 16:06; Status DC Hydralazine HCl (Apresoline Inj) 10 mg 1X ONCE IVP Last administered on 16:00; Start 03/27/17 at 16:00; Stop 03/27/17 at 16:06; Status DC Diphenhydramine HCl (Benadryl) 50 mg 1X ONCE IVP Last administered on 16:00; Start 03/27/17 at 16:00; Stop 03/27/17 at 16:06; Status DC Methylprednisolone Sodium Succinate (SOLU-Medrol 125MG VIAL) 125 mg 1X ONCE IV Last administered on 03/27/17 16:00; Start 03/27/17 at 16:00; Stop at 16:06; Status DC Famotidine (Pepcid) 20 mg 1X ONCE IVP Last administered on 03/27/17 16:00; Start 03/27/17 at 16:00; Stop 03/27/17 at 16:06; Status DC Info (Do NOT chart on this entry -- for MONITORING) 1 each PRN DAILY PRN MC SEE COMMENTS; Start 03/27/17 at 16:15; Stop 03/29/17 at 16:14; Status DC Potassium Chloride 50 ml @ 50 mls/hr Q1H IV Last administered on 03/28/17 09: 30; Start 03/28/17 at 08:30; Stop 03/28/17 at 10:29; Status DC Carvedilol (Coreg) 6.25 mg BIDWMEALS PO Last administered on 03/28/17 08:36; Start 03/28/17 at 08:30; Stop 03/28/17 at 11:56; Status DC Potassium Chloride (Klor-Con) 40 meq 1X ONCE PO Last administered on 08:37; Start 03/28/17 at 08:30; Stop 03/28/17 at 08:31; Status DC Losartan Potassium (Cozaar) 50 mg DAILY PO Last administered on 03/28/17 08: 37; Start 03/28/17 at 09:00; Stop 03/28/17 at 11:56; Status DC Pantoprazole Sodium (Protonix) 40 mg DAILYAC PO Last administered on 08:19; Start 03/28/17 at 08:30 Carvedilol (Coreg) 6.25 mg BIDWMEALS PO Last administered on 03/30/17 08:19; Start 03/29/17 at 17:00 Losartan Potassium (Cozaar) 50 mg DAILY PO Last administered on 03/30/17 08: 19; Start 03/30/17 at 09:00 Metoprolol Tartrate (Lopressor) 5 mg Q6HRS IVP Last administered on 03/29/17 12:07; Start 03/28/17 at 12:00; Stop 03/29/17 at 13:00; Status DC Enalaprilat (Vasotec) 1.25 mg Q6HRS IV Last administered on 03/29/17 12:07; Start 03/28/17 at 12:00; Stop 03/29/17 at 13:00; Status DC Furosemide (Lasix) 40 mg DAILY IVP Last administered on 03/30/17 08:18; Start 03/29/17 at 09:00 Albuterol/ Ipratropium (Duoneb) 3 ml RTQID NEB Last administered on 03/30/17 11:57; Start 03/28/17 at 14:00 Budesonide (Pulmicort) 0.5 mg RTBID NEB Last administered on 03/30/17 07:49; Start 03/28/17 at 14:00 Furosemide (Lasix) 40 mg 1X ONCE IVP Last administered on 03/29/17 00:26; Start 03/29/17 at 00:30; Stop 03/29/17 at 00:31; Status DC Albuterol/ Ipratropium (Duoneb) 3 ml 1X ONCE NEB Last administered on 00:26; Start 03/29/17 at 00:30; Stop 03/29/17 at 00:31; Status DC Vancomycin HCl 1.5 gm/Sodium Chloride 500 ml @ 250 mls/hr Q18H IV Last administered on 03/29/17 23:10; Start 03/29/17 at 06:00; Stop 03/30/17 at 13 :32; Status DC Vancomycin HCl 1 each 1X ONCE MC ; Start 03/31/17 at 11:30; Stop 03/31/17 at 11:31; Status Cancel Potassium Chloride 50 ml @ 50 mls/hr Q1H IV Last administered on 03/29/17 10: 00; Start 03/29/17 at 09:00; Stop 03/29/17 at 10:59; Status DC Fluoxetine HCl (PROzac) 20 mg DAILY PO Last administered on 03/30/17 08:19; Start 03/29/17 at 12:00 Vitals/I & O Vital Sign - Last 24 Hours 03/29/17 03/29/17 03/29/17 03/29/17 15:00 15:55 17:16 17:37 Pulse 77 96 Resp 22 B/P (MAP) 116/62 (80) 198/81 Pulse Ox 95 O2 Delivery Nasal Cannula Room Air Nasal Cannula O2 Flow Rate 2.0 2.0 03/29/17 03/29/17 03/29/17 03/29/17 19:31 19:40 20:32 20:39 Temp 97.8 97.8 Pulse 78 Resp 24 B/P (MAP) 161/75 (103) Pulse Ox 96 O2 Delivery Nasal Cannula Nasal Cannula Room Air Room Air O2 Flow Rate 2.0 2.0 2.0 2.0 03/29/17 03/30/17 03/30/17 03/30/17 23:32 03:40 07:40 07:49 Temp 97.7 98.2 98.1 97.7 98.2 98.1 Pulse 81 99 93 Resp 22 22 20 B/P (MAP) 155/69 (97) 170/70 (103) 172/86 (114) Pulse Ox 95 97 92 93 O2 Delivery Nasal Cannula Nasal Cannula Nasal Cannula Room Air O2 Flow Rate 2.0 2.0 2.0 03/30/17 03/30/17 03/30/17 03/30/17 08:00 08:19 08:19 11:40 Temp 98.3 98.3 Pulse 99 99 86 Resp 20 B/P (MAP) 170/70 170/70 133/48 (76) Pulse Ox 96 O2 Delivery Nasal Cannula Nasal Cannula O2 Flow Rate 2.0 2.0 03/30/17 11:59 Pulse Ox 94 O2 Delivery Room Air DICK CHAMBERLAIN III DO Mar 30, 2017 13:56
[2017-03-30 15:30] VITALS: BP 148/67
--- NOTE | 2017-03-30 18:05 | PDOC ---
PULMONARY PROGRESS NOTES Subjective PT WITH COUGH DENIES SOA Vitals Vital Signs Date Time Temp Pulse Resp B/P (MAP) Pulse Ox O2 Delivery O2 Flow Rate FiO2 03/30/17 16:00 93 Room Air 03/30/17 15:30 98.9 86 18 148/67 (94) 2.0 98.9 ROS: No Nausea, No Chest Pain, No Abdominal Pain General: Alert, Oriented X4 HEENT: Other (nc at perrl. nose throat clear neck no lap, no thyromegaly) Lungs: Crackles Cardiovascular: S1, S2 Abdomen: Soft, Non-tender, Other (no mass) Neuro Exam: Alert Extremities: Other (edema) Skin: Warm Labs Laboratory Tests Test 03/28/17 18:16 03/29/17 04:10 03/29/17 11:53 03/29/17 17:16 Glucose (Fingerstick) 219 mg/dL (70-99) 284 mg/dL (70-99) 193 mg/dL (70-99) White Blood Count 13.3 x10^3/uL (4.0-11.0) Red Blood Count 4.00 x10^6/uL (3.50-5.40) Hemoglobin 11.8 g/dL (12.0-15.5) Hematocrit 36.1 % (36.0-47.0) Mean Corpuscular Volume 90 fL (79-100) Mean Corpuscular Hemoglobin 30 pg (25-35) Mean Corpuscular Hemoglobin Concent 33 g/dL (31-37) Red Cell Distribution Width 14.6 % (11.5-14.5) Platelet Count 221 x10^3/uL (140-400) Neutrophils (%) (Auto) 66 % (31-73) Lymphocytes (%) (Auto) 24 % (24-48) Monocytes (%) (Auto) 9 % (0-9) Eosinophils (%) (Auto) 1 % (0-3) Basophils (%) (Auto) 0 % (0-3) Neutrophils # (Auto) 8.8 x10^3uL (1.8-7.7) Lymphocytes # (Auto) 3.1 x10^3/uL (1.0-4.8) Monocytes # (Auto) 1.1 x10^3/uL (0.0-1.1) Eosinophils # (Auto) 0.1 x10^3/uL (0.0-0.7) Basophils # (Auto) 0.0 x10^3/uL (0.0-0.2) Sodium Level 147 mmol/L (136-145) Potassium Level 3.2 mmol/L (3.5-5.1) Chloride Level 110 mmol/L (98-107) Carbon Dioxide Level 29 mmol/L (21-32) Anion Gap 8 (6-14) Blood Urea Nitrogen 14 mg/dL (7-20) Creatinine 0.9 mg/dL (0.6-1.0) Estimated GFR (Cockcroft-Gault) 72.9 Glucose Level 248 mg/dL (70-99) Calcium Level 7.8 mg/dL (8.5-10.1) Vancomycin Level Trough 9.4 mcg/mL (10.0-20.0) Vancomycin Last Dose Date 03/28/17 Vancomycin Last Dose Time 0500 Test 03/29/17 21:09 03/30/17 05:50 03/30/17 07:43 03/30/17 16:47 Glucose (Fingerstick) 198 mg/dL (70-99) 220 mg/dL (70-99) 240 mg/dL (70-99) White Blood Count 10.0 x10^3/uL (4.0-11.0) Red Blood Count 4.00 x10^6/uL (3.50-5.40) Hemoglobin 12.0 g/dL (12.0-15.5) Hematocrit 36.4 % (36.0-47.0) Mean Corpuscular Volume 91 fL (79-100) Mean Corpuscular Hemoglobin 30 pg (25-35) Mean Corpuscular Hemoglobin Concent 33 g/dL (31-37) Red Cell Distribution Width 14.7 % (11.5-14.5) Platelet Count 202 x10^3/uL (140-400) Neutrophils (%) (Auto) 59 % (31-73) Lymphocytes (%) (Auto) 27 % (24-48) Monocytes (%) (Auto) 9 % (0-9) Eosinophils (%) (Auto) 5 % (0-3) Basophils (%) (Auto) 1 % (0-3) Neutrophils # (Auto) 5.9 x10^3uL (1.8-7.7) Lymphocytes # (Auto) 2.7 x10^3/uL (1.0-4.8) Monocytes # (Auto) 0.9 x10^3/uL (0.0-1.1) Eosinophils # (Auto) 0.5 x10^3/uL (0.0-0.7) Basophils # (Auto) 0.1 x10^3/uL (0.0-0.2) Sodium Level 141 mmol/L (136-145) Potassium Level 3.4 mmol/L (3.5-5.1) Chloride Level 105 mmol/L (98-107) Carbon Dioxide Level 29 mmol/L (21-32) Anion Gap 7 (6-14) Blood Urea Nitrogen 13 mg/dL (7-20) Creatinine 0.7 mg/dL (0.6-1.0) Estimated GFR (Cockcroft-Gault) 97.4 Glucose Level 237 mg/dL (70-99) Calcium Level 8.0 mg/dL (8.5-10.1) Laboratory Tests Test 03/29/17 21:09 03/30/17 05:50 03/30/17 07:43 03/30/17 16:47 Glucose (Fingerstick) 198 mg/dL (70-99) 220 mg/dL (70-99) 240 mg/dL (70-99) White Blood Count 10.0 x10^3/uL (4.0-11.0) Red Blood Count 4.00 x10^6/uL (3.50-5.40) Hemoglobin 12.0 g/dL (12.0-15.5) Hematocrit 36.4 % (36.0-47.0) Mean Corpuscular Volume 91 fL (79-100) Mean Corpuscular Hemoglobin 30 pg (25-35) Mean Corpuscular Hemoglobin Concent 33 g/dL (31-37) Red Cell Distribution Width 14.7 % (11.5-14.5) Platelet Count 202 x10^3/uL (140-400) Neutrophils (%) (Auto) 59 % (31-73) Lymphocytes (%) (Auto) 27 % (24-48) Monocytes (%) (Auto) 9 % (0-9) Eosinophils (%) (Auto) 5 % (0-3) Basophils (%) (Auto) 1 % (0-3) Neutrophils # (Auto) 5.9 x10^3uL (1.8-7.7) Lymphocytes # (Auto) 2.7 x10^3/uL (1.0-4.8) Monocytes # (Auto) 0.9 x10^3/uL (0.0-1.1) Eosinophils # (Auto) 0.5 x10^3/uL (0.0-0.7) Basophils # (Auto) 0.1 x10^3/uL (0.0-0.2) Sodium Level 141 mmol/L (136-145) Potassium Level 3.4 mmol/L (3.5-5.1) Chloride Level 105 mmol/L (98-107) Carbon Dioxide Level 29 mmol/L (21-32) Anion Gap 7 (6-14) Blood Urea Nitrogen 13 mg/dL (7-20) Creatinine 0.7 mg/dL (0.6-1.0) Estimated GFR (Cockcroft-Gault) 97.4 Glucose Level 237 mg/dL (70-99) Calcium Level 8.0 mg/dL (8.5-10.1) Comments cxr reviewed, 1. Catheter placements as described above. 2. No acute infiltrates. 3. Possible tiny left pleural effusion Impression . IMPRESSION: 1. Acute respiratory failure, multifactorial. 2. sepsis. 3. Elevated troponin, non-ST segment elevation myocardial infarction, cath no cad 4. Leukocytosis. 5. Type 2 diabetes. 6. Obesity. jj 7. Copd 8. Cough Plan . add Tessalon perles 1. 02 titration 2. Continue antibiotics per ID. 3. No need for steroids. 4. bronchodilator, ics 5. start cpap qhs, the importance of jj tx discussed 6. quit smoking for ever CURTIS KLINE MD Mar 30, 2017 18:05
[2017-03-30 19:50] VITALS: BP 148/65
[2017-03-30] MEDS: BENZONATATE 100 MG CAPSULE. PO SCH (21:19)
[2017-03-30] MEDS: ATORVASTATIN CALCIUM 40 MG TABLET. PO SCH (21:19)
[2017-03-30 22:45] VITALS: BP 144/70
[2017-03-31 03:20] VITALS: BP 154/69
[2017-03-31 05:04] LABS: BASO # 0.1 x10^3/uL (0.0-0.2); BASO % 1 % (0-3); EOS % 9 % (0-3); HEMATOCRIT 35.2 % (36.0-47.0); HEMOGLOBIN 11.6 g/dL (12.0-15.5); LYMPH # 1.7 x10^3/uL (1.0-4.8); LYMPH % 25 % (24-48); MEAN CORPUSCULAR HEMOGLOBIN 30 pg (25-35); MEAN CORPUSCULAR HGB CONC 33 g/dL (31-37); MEAN CORPUSCULAR VOLUME 91 fL (79-100); MONO % 11 % (0-9); NEUT % 54 % (31-73); PLATELET COUNT 214 x10^3/uL (140-400); RED BLOOD COUNT 3.89 x10^6/uL (3.50-5.40); RED CELL DISTRIBUTION WIDTH 14.4 % (11.5-14.5); WHITE BLOOD COUNT 7.1 x10^3/uL (4.0-11.0)
[2017-03-31 05:33] LABS: CALCIUM 8.4 mg/dL (8.5-10.1); CREATININE 0.7 mg/dL (0.6-1.0); GFR 97.4; POTASSIUM 3.4 mmol/L (3.5-5.1)
[2017-03-31] MEDS: PANTOPRAZOLE 40 MG TABLET.DR. PO SCH (06:22)
--- NOTE | 2017-03-31 07:10 | PDOC ---
Infectious Disease Note Subjective Subjective Comfortable Occ SOA has a dry cough Hungry ROS ROS GEN: Denies fevers, chills, sweats HEENT: Denies blurred vision, sore throat CV: Denies chest pain GI: Denies n/v/d NEURO: Denies confusion, dizziness MSK: Denies weakness, joint pain/swelling Vital Sign Vital Signs Vital Signs Date Time Temp Pulse Resp B/P (MAP) Pulse Ox O2 Delivery O2 Flow Rate FiO2 03/31/17 03:20 97.9 75 20 154/69 (97) 97 Nasal Cannula 2.0 97.9 Physical Exam PHYSICAL EXAM GENERAL: Sitting in bed, relaxed appearance, NAD OC/Op - clear LUNGS: Clear HEART: S1 and S2 ABD: Obese, soft, NT, BS active : Mortensen EXT: No edema, no cyanosis [employer] UNDERWRITER: Alert, oriented SKIN: No rash RI (03/27). clean Labs Lab Laboratory Tests Test 03/30/17 07:43 03/30/17 11:35 03/30/17 16:47 03/30/17 20:44 Glucose (Fingerstick) 220 mg/dL (70-99) 220 mg/dL (70-99) 240 mg/dL (70-99) 201 mg/dL (70-99) Test 03/31/17 04:30 White Blood Count 7.1 x10^3/uL (4.0-11.0) Red Blood Count 3.89 x10^6/uL (3.50-5.40) Hemoglobin 11.6 g/dL (12.0-15.5) Hematocrit 35.2 % (36.0-47.0) Mean Corpuscular Volume 91 fL (79-100) Mean Corpuscular Hemoglobin 30 pg (25-35) Mean Corpuscular Hemoglobin Concent 33 g/dL (31-37) Red Cell Distribution Width 14.4 % (11.5-14.5) Platelet Count 214 x10^3/uL (140-400) Neutrophils (%) (Auto) 54 % (31-73) Lymphocytes (%) (Auto) 25 % (24-48) Monocytes (%) (Auto) 11 % (0-9) Eosinophils (%) (Auto) 9 % (0-3) Basophils (%) (Auto) 1 % (0-3) Neutrophils # (Auto) 3.9 x10^3uL (1.8-7.7) Lymphocytes # (Auto) 1.7 x10^3/uL (1.0-4.8) Monocytes # (Auto) 0.8 x10^3/uL (0.0-1.1) Eosinophils # (Auto) 0.6 x10^3/uL (0.0-0.7) Basophils # (Auto) 0.1 x10^3/uL (0.0-0.2) Sodium Level 140 mmol/L (136-145) Potassium Level 3.4 mmol/L (3.5-5.1) Chloride Level 104 mmol/L (98-107) Carbon Dioxide Level 30 mmol/L (21-32) Anion Gap 6 (6-14) Blood Urea Nitrogen 13 mg/dL (7-20) Creatinine 0.7 mg/dL (0.6-1.0) Estimated GFR (Cockcroft-Gault) 97.4 Glucose Level 237 mg/dL (70-99) Calcium Level 8.4 mg/dL (8.5-10.1) Objective Assessment Sepsis - better Lactic acidosis Respiratory failure s/p extubation, 03/28 Hypoxia - improved Leukocytosis, steroids 03/27 Encephalopathy - improved Cardiomyopathy Enlargement left lobe thyroid gland. TSH 2.138 Sulfa allergy - nausea Plan Plan of Care Discont cefepime begin Cefpodoxime Cultures neg so far supportive care DESHAUN HAWLEY MD Mar 31, 2017 07:10
[2017-03-31] MEDS: BUDESONIDE 0.5 MG/2 ML NEBU. NEB SCH ×2 (07:37→19:40)
[2017-03-31] MEDS: IPRATRPIUM/ALBUTEROL 0.5/2.5MG 3 ML NEBU. NEB SCH ×4 (07:37→19:40)
[2017-03-31 08:15] VITALS: BP 177/70
--- NOTE | 2017-03-31 08:29 | RAD ---
Indication: Respiratory failure. Technique: Upright portable chest radiograph was obtained and compared to a study from one day earlier. Findings: Scatter artifact from body habitus limits evaluation of the lung bases. Allowing for this limitation, the lungs are clear. The heart is not enlarged and there is no heart failure. Right IJ central line is noted, tip at the junction of the atrium and SVC. There is atheromatous disease in the thoracic aorta. There are advanced degenerative changes in the shoulders. Leads overlie the patient. Impression: No acute thoracic findings.
[2017-03-31] MEDS: CEFPODOXIME PROXETIL 100 MG TABLET. PO SCH ×2 (09:21→20:44)
[2017-03-31] MEDS: FLUoxetine HCL 20 MG CAPSULE PO SCH (09:22)
[2017-03-31] MEDS: BENZONATATE 100 MG CAPSULE. PO SCH ×3 (09:22→20:44)
[2017-03-31] MEDS: CARVEDILOL 6.25 MG TABLET. PO SCH (09:22)
[2017-03-31] MEDS: FUROSEMIDE 40 MG/4 ML VIAL. IVP SCH (09:23)
[2017-03-31] MEDS: ASPIRIN CHEWABLE 81 MG TABLET. PO SCH (09:23)
[2017-03-31] MEDS: LOSARTAN POTASSIUM 50 MG TABLET. PO SCH (09:23)
[2017-03-31] MEDS: INSULIN ASPART 300 UNITS/3 ML INSULN.PEN SQ SCH ×3 (09:46→17:31)
[2017-03-31 11:02] VITALS: BP 147/57
--- NOTE | 2017-03-31 12:34 | PDOC ---
PROGRESS NOTES Chief Complaint Chief Complaint Respiratory failure Hypoxia CHF-Stress induced cardiomyopathy COPD History of Present Illness History of Present Illness Pt was laying in bed and was conversant. She did not appear to be in any distress, however she did complain of coughing. Vitals Vitals Vital Signs Date Time Temp Pulse Resp B/P (MAP) Pulse Ox O2 Delivery O2 Flow Rate FiO2 03/31/17 11:47 94 Room Air 03/31/17 11:02 98.0 98 21 147/57 (87) 2.0 98.0 Physical Exam General: Alert, Oriented X3, Cooperative, No acute distress, Other Heart: Regular rate (SR), No murmurs, Other (distant heart sounds) Abdomen: Soft, No masses, Other (obese) Extremities: No clubbing, No cyanosis Skin: No rashes, No breakdown, No significant lesion Labs LABS Laboratory Tests Test 03/30/17 16:47 03/30/17 20:44 03/31/17 04:30 03/31/17 07:51 Glucose (Fingerstick) 240 mg/dL (70-99) 201 mg/dL (70-99) 199 mg/dL (70-99) White Blood Count 7.1 x10^3/uL (4.0-11.0) Red Blood Count 3.89 x10^6/uL (3.50-5.40) Hemoglobin 11.6 g/dL (12.0-15.5) Hematocrit 35.2 % (36.0-47.0) Mean Corpuscular Volume 91 fL (79-100) Mean Corpuscular Hemoglobin 30 pg (25-35) Mean Corpuscular Hemoglobin Concent 33 g/dL (31-37) Red Cell Distribution Width 14.4 % (11.5-14.5) Platelet Count 214 x10^3/uL (140-400) Neutrophils (%) (Auto) 54 % (31-73) Lymphocytes (%) (Auto) 25 % (24-48) Monocytes (%) (Auto) 11 % (0-9) Eosinophils (%) (Auto) 9 % (0-3) Basophils (%) (Auto) 1 % (0-3) Neutrophils # (Auto) 3.9 x10^3uL (1.8-7.7) Lymphocytes # (Auto) 1.7 x10^3/uL (1.0-4.8) Monocytes # (Auto) 0.8 x10^3/uL (0.0-1.1) Eosinophils # (Auto) 0.6 x10^3/uL (0.0-0.7) Basophils # (Auto) 0.1 x10^3/uL (0.0-0.2) Sodium Level 140 mmol/L (136-145) Potassium Level 3.4 mmol/L (3.5-5.1) Chloride Level 104 mmol/L (98-107) Carbon Dioxide Level 30 mmol/L (21-32) Anion Gap 6 (6-14) Blood Urea Nitrogen 13 mg/dL (7-20) Creatinine 0.7 mg/dL (0.6-1.0) Estimated GFR (Cockcroft-Gault) 97.4 Glucose Level 237 mg/dL (70-99) Calcium Level 8.4 mg/dL (8.5-10.1) Test 03/31/17 11:30 Glucose (Fingerstick) 278 mg/dL (70-99) Review of Systems Review of Systems cough and weakness Assessment and Plan Assessmemt and Plan Problems Medical Problems: (1) COPD (chronic obstructive pulmonary disease) Status: Acute (2) Hypoxia Status: Acute (3) Lactic acidosis Status: Acute (4) Respiratory failure Status: Acute Assessment: Takotsubo cardiomyopathy Possible sepsis Respiratory failure Hypoxia CHF-Stress induced cardiomyopathy COPD Plan: Continue cardiac monitoring NEBs Oxygen PTOT Recheck labs Folate to BSD Continue diuresis Possible SNU discharge Problems: Comment Review of Relevant I have reviewed the following items la nena (where applicable) has been applied. Labs Laboratory Tests Test 03/29/17 17:16 03/29/17 21:09 03/30/17 05:50 03/30/17 07:43 Glucose (Fingerstick) 193 mg/dL (70-99) 198 mg/dL (70-99) 220 mg/dL (70-99) White Blood Count 10.0 x10^3/uL (4.0-11.0) Red Blood Count 4.00 x10^6/uL (3.50-5.40) Hemoglobin 12.0 g/dL (12.0-15.5) Hematocrit 36.4 % (36.0-47.0) Mean Corpuscular Volume 91 fL (79-100) Mean Corpuscular Hemoglobin 30 pg (25-35) Mean Corpuscular Hemoglobin Concent 33 g/dL (31-37) Red Cell Distribution Width 14.7 % (11.5-14.5) Platelet Count 202 x10^3/uL (140-400) Neutrophils (%) (Auto) 59 % (31-73) Lymphocytes (%) (Auto) 27 % (24-48) Monocytes (%) (Auto) 9 % (0-9) Eosinophils (%) (Auto) 5 % (0-3) Basophils (%) (Auto) 1 % (0-3) Neutrophils # (Auto) 5.9 x10^3uL (1.8-7.7) Lymphocytes # (Auto) 2.7 x10^3/uL (1.0-4.8) Monocytes # (Auto) 0.9 x10^3/uL (0.0-1.1) Eosinophils # (Auto) 0.5 x10^3/uL (0.0-0.7) Basophils # (Auto) 0.1 x10^3/uL (0.0-0.2) Sodium Level 141 mmol/L (136-145) Potassium Level 3.4 mmol/L (3.5-5.1) Chloride Level 105 mmol/L (98-107) Carbon Dioxide Level 29 mmol/L (21-32) Anion Gap 7 (6-14) Blood Urea Nitrogen 13 mg/dL (7-20) Creatinine 0.7 mg/dL (0.6-1.0) Estimated GFR (Cockcroft-Gault) 97.4 Glucose Level 237 mg/dL (70-99) Calcium Level 8.0 mg/dL (8.5-10.1) Test 03/30/17 11:35 03/30/17 16:47 03/30/17 20:44 03/31/17 04:30 Glucose (Fingerstick) 220 mg/dL (70-99) 240 mg/dL (70-99) 201 mg/dL (70-99) White Blood Count 7.1 x10^3/uL (4.0-11.0) Red Blood Count 3.89 x10^6/uL (3.50-5.40) Hemoglobin 11.6 g/dL (12.0-15.5) Hematocrit 35.2 % (36.0-47.0) Mean Corpuscular Volume 91 fL (79-100) Mean Corpuscular Hemoglobin 30 pg (25-35) Mean Corpuscular Hemoglobin Concent 33 g/dL (31-37) Red Cell Distribution Width 14.4 % (11.5-14.5) Platelet Count 214 x10^3/uL (140-400) Neutrophils (%) (Auto) 54 % (31-73) Lymphocytes (%) (Auto) 25 % (24-48) Monocytes (%) (Auto) 11 % (0-9) Eosinophils (%) (Auto) 9 % (0-3) Basophils (%) (Auto) 1 % (0-3) Neutrophils # (Auto) 3.9 x10^3uL (1.8-7.7) Lymphocytes # (Auto) 1.7 x10^3/uL (1.0-4.8) Monocytes # (Auto) 0.8 x10^3/uL (0.0-1.1) Eosinophils # (Auto) 0.6 x10^3/uL (0.0-0.7) Basophils # (Auto) 0.1 x10^3/uL (0.0-0.2) Sodium Level 140 mmol/L (136-145) Potassium Level 3.4 mmol/L (3.5-5.1) Chloride Level 104 mmol/L (98-107) Carbon Dioxide Level 30 mmol/L (21-32) Anion Gap 6 (6-14) Blood Urea Nitrogen 13 mg/dL (7-20) Creatinine 0.7 mg/dL (0.6-1.0) Estimated GFR (Cockcroft-Gault) 97.4 Glucose Level 237 mg/dL (70-99) Calcium Level 8.4 mg/dL (8.5-10.1) Test 03/31/17 07:51 03/31/17 11:30 Glucose (Fingerstick) 199 mg/dL (70-99) 278 mg/dL (70-99) Laboratory Tests Test 03/30/17 16:47 03/30/17 20:44 03/31/17 04:30 03/31/17 07:51 Glucose (Fingerstick) 240 mg/dL (70-99) 201 mg/dL (70-99) 199 mg/dL (70-99) White Blood Count 7.1 x10^3/uL (4.0-11.0) Red Blood Count 3.89 x10^6/uL (3.50-5.40) Hemoglobin 11.6 g/dL (12.0-15.5) Hematocrit 35.2 % (36.0-47.0) Mean Corpuscular Volume 91 fL (79-100) Mean Corpuscular Hemoglobin 30 pg (25-35) Mean Corpuscular Hemoglobin Concent 33 g/dL (31-37) Red Cell Distribution Width 14.4 % (11.5-14.5) Platelet Count 214 x10^3/uL (140-400) Neutrophils (%) (Auto) 54 % (31-73) Lymphocytes (%) (Auto) 25 % (24-48) Monocytes (%) (Auto) 11 % (0-9) Eosinophils (%) (Auto) 9 % (0-3) Basophils (%) (Auto) 1 % (0-3) Neutrophils # (Auto) 3.9 x10^3uL (1.8-7.7) Lymphocytes # (Auto) 1.7 x10^3/uL (1.0-4.8) Monocytes # (Auto) 0.8 x10^3/uL (0.0-1.1) Eosinophils # (Auto) 0.6 x10^3/uL (0.0-0.7) Basophils # (Auto) 0.1 x10^3/uL (0.0-0.2) Sodium Level 140 mmol/L (136-145) Potassium Level 3.4 mmol/L (3.5-5.1) Chloride Level 104 mmol/L (98-107) Carbon Dioxide Level 30 mmol/L (21-32) Anion Gap 6 (6-14) Blood Urea Nitrogen 13 mg/dL (7-20) Creatinine 0.7 mg/dL (0.6-1.0) Estimated GFR (Cockcroft-Gault) 97.4 Glucose Level 237 mg/dL (70-99) Calcium Level 8.4 mg/dL (8.5-10.1) Test 03/31/17 11:30 Glucose (Fingerstick) 278 mg/dL (70-99) Microbiology 03/26/17 Blood Culture - Preliminary, Resulted NO GROWTH AFTER 4 DAYS 03/27/17 Urine Culture - Final, Complete 03/27/17 Urine Culture Result 1 ([facility]) - Final, Complete Medications Current Medications Propofol (Diprivan) 200 mg 1X ONCE IV ; Start 03/27/17 at 00:15; Stop at 00:16; Status DC Fentanyl Citrate 30 ml @ 0 mls/hr CONT PRN PRN IV PROTOCOL; Start 03/26/17 at 23:30; Stop 03/30/17 at 07:37; Status DC Propofol (Diprivan) 200 mg 1X ONCE IV ; Start 03/27/17 at 00:15; Stop at 00:16; Status DC Midazolam HCl (Versed) 5 mg STK-MED ONCE .ROUTE ; Start 03/27/17 at 00:13; Stop 03/27/17 at 00:14; Status DC Propofol 50 ml @ As Directed STK-MED ONCE IV ; Start 03/27/17 at 00:14; Stop 03/27/17 at 00:15; Status DC Propofol 50 ml @ As Directed STK-MED ONCE IV ; Start 03/27/17 at 01:51; Stop 03/27/17 at 01:52; Status DC Propofol 50 ml @ 0 mls/hr 1X ONCE IV Last administered on 03/27/17 00:19; Start 03/27/17 at 02:00; Stop 03/27/17 at 02:01; Status DC Propofol 50 ml @ 0 mls/hr 1X ONCE IV Last administered on 03/27/17 01:13; Start 03/27/17 at 02:00; Stop 03/27/17 at 02:01; Status DC Ondansetron HCl (Zofran) 4 mg PRN Q8HRS PRN IV NAUSEA/VOMITING; Start at 02:15; Stop 03/28/17 at 02:14; Status DC Albuterol/ Ipratropium (Duoneb) 3 ml RTQID NEB Last administered on 03/27/17 19:43; Start 03/27/17 at 02:30; Stop 03/28/17 at 02:29; Status DC Insulin Aspart (NovoLOG) 0-5 UNITS TIDWMEALS SQ Last administered on 12:24; Start 03/27/17 at 08:00 Dextrose (Dextrose 50%-Water Syringe) 12.5 gm PRN Q15MIN PRN IV SEE COMMENTS; Start 03/27/17 at 02:15 Methylprednisolone Sodium Succinate (SOLU-Medrol 125MG VIAL) 125 mg 1X ONCE IV ; Start 03/27/17 at 02:30; Stop 03/27/17 at 02:31; Status DC Cefepime HCl 2 gm/ Sodium Chloride 100 ml @ 200 mls/hr 1X ONCE IV Last administered on 03/27/17 02:45; Start 03/27/17 at 02:30; Stop 03/27/17 at 02 :59; Status DC Vancomycin HCl (Vanco Per Pharmacy) 1 each PRN DAILY PRN MC SEE COMMENTS Last administered on 03/30/17 07:45; Start 03/27/17 at 02:15; Stop 03/30/17 at 13 :32; Status DC Sodium Chloride 1,000 ml @ 50 mls/hr Q20H IV Last administered on 03/28/17 18:28; Start 03/27/17 at 02:15; Stop 03/29/17 at 16:12; Status DC Sodium Chloride 1,000 ml @ 1,000 mls/hr 1X ONCE IV Last administered on 03/27 02:51; Start 03/27/17 at 03:00; Stop 03/27/17 at 03:59; Status DC Propofol 100 ml @ 0 mls/hr CONT PRN IV SEE I/O RECORD Last administered on 05:16; Start 03/27/17 at 03:00; Stop 03/30/17 at 07:37; Status DC Vancomycin HCl 2 gm/Sodium Chloride 500 ml @ 250 mls/hr 1X ONCE IV Last administered on 03/27/17 04:30; Start 03/27/17 at 03:30; Stop 03/27/17 at 05 :29; Status DC Info (Do NOT chart on this placeholder) 1 each PRN DAILY PRN MC UNABLE TO RESPOND; Start 03/27/17 at 03:15; Status Cancel Pneumococcal Polyvalent Vaccine (Do NOT chart on this placeholder) 1 each PRN DAILY PRN MC UNABLE TO RESPOND; Start 03/27/17 at 03:15; Status Cancel Cefepime HCl 2 gm/ Sodium Chloride 100 ml @ 200 mls/hr Q12HR IV Last administered on 03/30/17 21:19; Start 03/27/17 at 09:00; Stop 03/31/17 at 07 :11; Status DC Etomidate (Amidate) 20 mg STK-MED ONCE IV ; Start 03/27/17 at 05:29; Stop 06/01 at 05:30; Status DC Vecuronium Wright (Norcuron Bolus) 10 mg STK-MED ONCE IV ; Start 03/27/17 at 05:29; Stop 03/27/17 at 05:30; Status DC Vancomycin HCl 1.5 gm/Sodium Chloride 500 ml @ 250 mls/hr Q24H IV Last administered on 03/28/17 05:17; Start 03/28/17 at 05:00; Stop 03/29/17 at 05 :16; Status DC Vancomycin HCl 1 each 1X ONCE MC Last administered on 03/29/17 04:30; Start 03/29/17 at 04:30; Stop 03/29/17 at 04:31; Status DC Heparin Sodium/ Dextrose 500 ml @ 20 mls/hr CONT PRN IV SEE I/O RECORD Last administered on 03/27/17 10:19; Start 03/27/17 at 09:15; Stop 03/27/17 at 23 :10; Status DC Heparin Sodium (Porcine) (Heparin Sodium) 2,650 unit PRN Q6HRS PRN IV FOR UFH LEVEL LESS THAN 0.2 Last administered on 03/27/17 10:13; Start 03/27/17 at 09 :15; Stop 03/27/17 at 23:10; Status DC Lidocaine/Sodium Bicarbonate (Buffered Lidocaine 1%) 20 ml STK-MED ONCE IJ ; Start 03/27/17 at 10:50; Stop 03/27/17 at 10:51; Status DC Heparin Sodium/ Sodium Chloride 500 ml @ As Directed STK-MED ONCE .ROUTE ; Start 03/27/17 at 10:50; Stop 03/27/17 at 10:51; Status DC Lidocaine/Sodium Bicarbonate (Buffered Lidocaine 1%) 3 ml 1X ONCE IJ Last administered on 03/27/17 11:28; Start 03/27/17 at 11:00; Stop 03/27/17 at 11 :01; Status DC Heparin Sodium/ Sodium Chloride 60 unit 1X ONCE IV Last administered on 11:28; Start 03/27/17 at 11:00; Stop 03/27/17 at 11:01; Status DC Aspirin (Children'S Aspirin) 81 mg [id number] PO Last administered on 09:23; Start 03/27/17 at 12:00 Labetalol HCl (Normodyne) 20 mg PRN Q2HR PRN IVP HYPERTENSION, SEE COMMENTS Last administered on 03/28/17 05:33; Start 03/27/17 at 10:45 Furosemide (Lasix) 40 mg [id number] IVP Last administered on 03/28/17 08:38; Start 03/27/17 at 14:00; Stop 03/28/17 at 11:59; Status DC Magnesium Sulfate/ Dextrose 50 ml @ 25 mls/hr 1X ONCE IV Last administered on 03/27/17 14:58; Start 03/27/17 at 13:45; Stop 03/27/17 at 15:44; Status DC Atorvastatin Calcium (Lipitor) 20 mg QHS PO Last administered on 03/30/17 21: 19; Start 03/27/17 at 21:00 Iohexol (Omnipaque 300 Mg/ml) 100 ml STK-MED ONCE .ROUTE ; Start 03/27/17 at 15 :00; Stop 03/27/17 at 15:01; Status DC Lidocaine HCl 20 ml STK-MED ONCE .ROUTE ; Start 03/27/17 at 15:00; Stop at 15:01; Status DC Heparin Sodium/ Sodium Chloride 1,000 ml @ As Directed STK-MED ONCE .ROUTE ; Start 03/27/17 at 15:01; Stop 03/27/17 at 15:02; Status DC Methylprednisolone Sodium Succinate (SOLU-Medrol 125MG VIAL) 125 mg STK-MED ONCE .ROUTE ; Start 03/27/17 at 15:29; Stop 03/27/17 at 15:30; Status DC Famotidine (Pepcid) 20 mg STK-MED ONCE .ROUTE ; Start 03/27/17 at 15:29; Stop 03/27/17 at 15:30; Status DC Diphenhydramine HCl (Benadryl) 50 mg STK-MED ONCE .ROUTE ; Start 03/27/17 at 15 :30; Stop 03/27/17 at 15:31; Status DC Hydralazine HCl (Apresoline Inj) 20 mg STK-MED ONCE .ROUTE ; Start 03/27/17 at 15:50; Stop 03/27/17 at 15:51; Status DC Heparin Sodium/ Sodium Chloride 1,000 unit 1X ONCE IART Last administered on 03/27/17 16:00; Start 03/27/17 at 16:00; Stop 03/27/17 at 16:06; Status DC Iohexol (Omnipaque 300 Mg/ml) 94 ml 1X ONCE IART Last administered on 16:00; Start 03/27/17 at 16:00; Stop 03/27/17 at 16:06; Status DC Lidocaine HCl 20 ml 1X ONCE IJ Last administered on 03/27/17 16:00; Start 03/27/17 at 16:00; Stop 03/27/17 at 16:06; Status DC Hydralazine HCl (Apresoline Inj) 10 mg 1X ONCE IVP Last administered on 16:00; Start 03/27/17 at 16:00; Stop 03/27/17 at 16:06; Status DC Diphenhydramine HCl (Benadryl) 50 mg 1X ONCE IVP Last administered on 16:00; Start 03/27/17 at 16:00; Stop 03/27/17 at 16:06; Status DC Methylprednisolone Sodium Succinate (SOLU-Medrol 125MG VIAL) 125 mg 1X ONCE IV Last administered on 03/27/17 16:00; Start 03/27/17 at 16:00; Stop at 16:06; Status DC Famotidine (Pepcid) 20 mg 1X ONCE IVP Last administered on 03/27/17 16:00; Start 03/27/17 at 16:00; Stop 03/27/17 at 16:06; Status DC Info (Do NOT chart on this entry -- for MONITORING) 1 each PRN DAILY PRN MC SEE COMMENTS; Start 03/27/17 at 16:15; Stop 03/29/17 at 16:14; Status DC Potassium Chloride 50 ml @ 50 mls/hr Q1H IV Last administered on 03/28/17 09: 30; Start 03/28/17 at 08:30; Stop 03/28/17 at 10:29; Status DC Carvedilol (Coreg) 6.25 mg BIDWMEALS PO Last administered on 03/28/17 08:36; Start 03/28/17 at 08:30; Stop 03/28/17 at 11:56; Status DC Potassium Chloride (Klor-Con) 40 meq 1X ONCE PO Last administered on 08:37; Start 03/28/17 at 08:30; Stop 03/28/17 at 08:31; Status DC Losartan Potassium (Cozaar) 50 mg DAILY PO Last administered on 03/28/17 08: 37; Start 03/28/17 at 09:00; Stop 03/28/17 at 11:56; Status DC Pantoprazole Sodium (Protonix) 40 mg DAILYAC PO Last administered on 06:22; Start 03/28/17 at 08:30 Carvedilol (Coreg) 6.25 mg BIDWMEALS PO Last administered on 03/31/17 09:22; Start 03/29/17 at 17:00 Losartan Potassium (Cozaar) 50 mg DAILY PO Last administered on 03/31/17 09: 23; Start 03/30/17 at 09:00 Metoprolol Tartrate (Lopressor) 5 mg Q6HRS IVP Last administered on 03/29/17 12:07; Start 03/28/17 at 12:00; Stop 03/29/17 at 13:00; Status DC Enalaprilat (Vasotec) 1.25 mg Q6HRS IV Last administered on 03/29/17 12:07; Start 03/28/17 at 12:00; Stop 03/29/17 at 13:00; Status DC Furosemide (Lasix) 40 mg DAILY IVP Last administered on 03/31/17 09:23; Start 03/29/17 at 09:00 Albuterol/ Ipratropium (Duoneb) 3 ml RTQID NEB Last administered on 03/31/17 11:47; Start 03/28/17 at 14:00 Budesonide (Pulmicort) 0.5 mg RTBID NEB Last administered on 03/31/17 07:37; Start 03/28/17 at 14:00 Furosemide (Lasix) 40 mg 1X ONCE IVP Last administered on 03/29/17 00:26; Start 03/29/17 at 00:30; Stop 03/29/17 at 00:31; Status DC Albuterol/ Ipratropium (Duoneb) 3 ml 1X ONCE NEB Last administered on 00:26; Start 03/29/17 at 00:30; Stop 03/29/17 at 00:31; Status DC Vancomycin HCl 1.5 gm/Sodium Chloride 500 ml @ 250 mls/hr Q18H IV Last administered on 03/29/17 23:10; Start 03/29/17 at 06:00; Stop 03/30/17 at 13 :32; Status DC Vancomycin HCl 1 each 1X ONCE MC ; Start 03/31/17 at 11:30; Stop 03/31/17 at 11:31; Status Cancel Potassium Chloride 50 ml @ 50 mls/hr Q1H IV Last administered on 03/29/17 10: 00; Start 03/29/17 at 09:00; Stop 03/29/17 at 10:59; Status DC Fluoxetine HCl (PROzac) 20 mg DAILY PO Last administered on 03/31/17 09:22; Start 03/29/17 at 12:00 Benzonatate (Tessalon Perle) 100 mg [id number] PO Last administered on 03/31/17 12:21; Start 03/30/17 at 21:00 Cefpodoxime Proxetil (Vantin) 200 mg BID PO Last administered on 03/31/17 09: 21; Start 03/31/17 at 09:00 Vitals/I & O Vital Sign - Last 24 Hours 03/30/17 03/30/17 03/30/17 03/30/17 15:30 16:00 18:11 19:26 Temp 98.9 98.9 Pulse 86 86 Resp 18 B/P (MAP) 148/67 (94) 148/67 Pulse Ox 98 93 92 O2 Delivery Nasal Cannula Room Air Room Air O2 Flow Rate 2.0 03/30/17 03/30/17 03/30/17 03/30/17 19:26 19:50 20:00 22:45 Temp 98.1 97.8 98.1 97.8 Pulse 80 80 Resp 20 20 B/P (MAP) 148/65 (92) 144/70 (94) Pulse Ox 92 96 92 O2 Delivery Room Air Room Air Nasal Cannula Room Air O2 Flow Rate 2.0 03/31/17 03/31/17 03/31/17 03/31/17 03:20 07:37 08:00 08:15 Temp 97.9 97.7 97.9 97.7 Pulse 75 81 Resp 20 20 B/P (MAP) 154/69 (97) 177/70 (105) Pulse Ox 97 97 95 O2 Delivery Nasal Cannula Nasal Cannula Nasal Cannula Nasal Cannula O2 Flow Rate 2.0 2.0 2.0 2.0 03/31/17 03/31/17 03/31/17 03/31/17 09:22 09:23 11:02 11:47 Temp 98.0 98.0 Pulse 84 84 98 Resp 21 B/P (MAP) 177/70 177/70 147/57 (87) Pulse Ox 96 94 O2 Delivery Nasal Cannula Room Air O2 Flow Rate 2.0 Intake and Output 03/31/17 03/31/17 04/01/17 15:00 23:00 07:00 Intake Total 180 ml Output Total 600 ml Balance -420 ml DICK CHAMBERLAIN III DO Mar 31, 2017 12:34
--- NOTE | 2017-03-31 13:37 | PDOC ---
[employer] 03/31/17 1337: CARDIO Progress Notes Date and Time Date of Service 03/31/2017 Time of Evaluation 1330 Subjective Subjective: No Chest Pain, No shortness of breath, No Palpitations Vitals Vitals Vital Signs Date Time Temp Pulse Resp B/P (MAP) Pulse Ox O2 Delivery O2 Flow Rate FiO2 03/31/17 11:47 94 Room Air 03/31/17 11:02 98.0 98 21 147/57 (87) 2.0 98.0 Weight Weight [ ] Input and Output Intake and Output Intake and Output 04/01/17 07:00 Intake Total 180 ml Output Total 600 ml Balance -420 ml Intake Oral 180 ml Output Urine Total 600 ml Laboratory Labs Laboratory Tests Test 03/30/17 16:47 03/30/17 20:44 03/31/17 04:30 03/31/17 07:51 Glucose (Fingerstick) 240 mg/dL (70-99) 201 mg/dL (70-99) 199 mg/dL (70-99) White Blood Count 7.1 x10^3/uL (4.0-11.0) Red Blood Count 3.89 x10^6/uL (3.50-5.40) Hemoglobin 11.6 g/dL (12.0-15.5) Hematocrit 35.2 % (36.0-47.0) Mean Corpuscular Volume 91 fL (79-100) Mean Corpuscular Hemoglobin 30 pg (25-35) Mean Corpuscular Hemoglobin Concent 33 g/dL (31-37) Red Cell Distribution Width 14.4 % (11.5-14.5) Platelet Count 214 x10^3/uL (140-400) Neutrophils (%) (Auto) 54 % (31-73) Lymphocytes (%) (Auto) 25 % (24-48) Monocytes (%) (Auto) 11 % (0-9) Eosinophils (%) (Auto) 9 % (0-3) Basophils (%) (Auto) 1 % (0-3) Neutrophils # (Auto) 3.9 x10^3uL (1.8-7.7) Lymphocytes # (Auto) 1.7 x10^3/uL (1.0-4.8) Monocytes # (Auto) 0.8 x10^3/uL (0.0-1.1) Eosinophils # (Auto) 0.6 x10^3/uL (0.0-0.7) Basophils # (Auto) 0.1 x10^3/uL (0.0-0.2) Sodium Level 140 mmol/L (136-145) Potassium Level 3.4 mmol/L (3.5-5.1) Chloride Level 104 mmol/L (98-107) Carbon Dioxide Level 30 mmol/L (21-32) Anion Gap 6 (6-14) Blood Urea Nitrogen 13 mg/dL (7-20) Creatinine 0.7 mg/dL (0.6-1.0) Estimated GFR (Cockcroft-Gault) 97.4 Glucose Level 237 mg/dL (70-99) Calcium Level 8.4 mg/dL (8.5-10.1) Test 03/31/17 11:30 Glucose (Fingerstick) 278 mg/dL (70-99) Microbiology Micro Microbiology 03/26/17 Blood Culture - Preliminary, Resulted NO GROWTH AFTER 4 DAYS 03/27/17 Urine Culture - Final, Complete 03/27/17 Urine Culture Result 1 ([facility]) - Final, Complete Physical Exam HEENT: Neck Supple W Full Motion Chest: Symmetric LUNGS: Clear to Auscultation Heart: S1S2, RRR (SR with occasional PSVT), other (distant heart sounds) Abdomen: Soft N/T Extremities: No Edema, No Calf Tenderness Neurology: alert, oriented, follow commands Assessment Assessment 1. Acute respiratory failure:extubated and better. Per pulmonary 2. Sepsis: better. ID following 3. Accelerated HTN: labile. HR 80-90s 4. NSTEMI with Takotsubo: S/P LHC with no significant disease 5. NICM: stress-induced CM. 6. DM2 with nephropathy 7. Obesity/tobaccoism 8. Acute on chronic CHF combined systolic/diastolic; compensated Recommendations 1. ASA. Continue on losartan, lipitor. Increase Coreg. 2. Limited TTE today. If EF remains low then will arrange for lifevest if pt agrees. Reeval in 3 months for AICD consideration. 3. Change lasix to PO with K supplement 4. Encourage. smoking cessation, trict I & O, 2L FR. Wt loss. BYRON MCKENZIE MD 04/01/17 0114: CARDIO Progress Notes Plan Plan Late entry for 03/31/2017 Pt. seen and examined. I had a long conversation today with the patient. Her finding of stress induced cmp fits with her history of shock from finding out that her son was going to residential Would continue medical therapy EF normalized. No need for lifevest. thanks for consult. OK to DC tmrw from cv perspective with f/u in 3 months. thanks HUGO GALLAGHER APRN Mar 31, 2017 13:37 BYRON MCKENZIE MD Apr 01, 2017 01:14
[2017-03-31] MEDS ORDERED: POTASSIUM CHLORIDE 20 MEQ TABLET.ER. PO ONE (13:45)
--- NOTE | 2017-03-31 14:20 | PDOC ---
PULMONARY PROGRESS NOTES Subjective PT WITH COUGH DENIES SOA Vitals Vital Signs Date Time Temp Pulse Resp B/P (MAP) Pulse Ox O2 Delivery O2 Flow Rate FiO2 03/31/17 11:47 94 Room Air 03/31/17 11:02 98.0 98 21 147/57 (87) 2.0 98.0 ROS: No Nausea, No Chest Pain, No Abdominal Pain General: Alert, Oriented X4 HEENT: Other (nc at perrl. nose throat clear neck no lap, no thyromegaly) Cardiovascular: S1, S2 Abdomen: Soft, Non-tender, Other (no mass) Neuro Exam: Alert Extremities: Other (edema) Skin: Warm Labs Laboratory Tests Test 03/29/17 17:16 03/29/17 21:09 03/30/17 05:50 03/30/17 07:43 Glucose (Fingerstick) 193 mg/dL (70-99) 198 mg/dL (70-99) 220 mg/dL (70-99) White Blood Count 10.0 x10^3/uL (4.0-11.0) Red Blood Count 4.00 x10^6/uL (3.50-5.40) Hemoglobin 12.0 g/dL (12.0-15.5) Hematocrit 36.4 % (36.0-47.0) Mean Corpuscular Volume 91 fL (79-100) Mean Corpuscular Hemoglobin 30 pg (25-35) Mean Corpuscular Hemoglobin Concent 33 g/dL (31-37) Red Cell Distribution Width 14.7 % (11.5-14.5) Platelet Count 202 x10^3/uL (140-400) Neutrophils (%) (Auto) 59 % (31-73) Lymphocytes (%) (Auto) 27 % (24-48) Monocytes (%) (Auto) 9 % (0-9) Eosinophils (%) (Auto) 5 % (0-3) Basophils (%) (Auto) 1 % (0-3) Neutrophils # (Auto) 5.9 x10^3uL (1.8-7.7) Lymphocytes # (Auto) 2.7 x10^3/uL (1.0-4.8) Monocytes # (Auto) 0.9 x10^3/uL (0.0-1.1) Eosinophils # (Auto) 0.5 x10^3/uL (0.0-0.7) Basophils # (Auto) 0.1 x10^3/uL (0.0-0.2) Sodium Level 141 mmol/L (136-145) Potassium Level 3.4 mmol/L (3.5-5.1) Chloride Level 105 mmol/L (98-107) Carbon Dioxide Level 29 mmol/L (21-32) Anion Gap 7 (6-14) Blood Urea Nitrogen 13 mg/dL (7-20) Creatinine 0.7 mg/dL (0.6-1.0) Estimated GFR (Cockcroft-Gault) 97.4 Glucose Level 237 mg/dL (70-99) Calcium Level 8.0 mg/dL (8.5-10.1) Test 03/30/17 11:35 03/30/17 16:47 03/30/17 20:44 03/31/17 04:30 Glucose (Fingerstick) 220 mg/dL (70-99) 240 mg/dL (70-99) 201 mg/dL (70-99) White Blood Count 7.1 x10^3/uL (4.0-11.0) Red Blood Count 3.89 x10^6/uL (3.50-5.40) Hemoglobin 11.6 g/dL (12.0-15.5) Hematocrit 35.2 % (36.0-47.0) Mean Corpuscular Volume 91 fL (79-100) Mean Corpuscular Hemoglobin 30 pg (25-35) Mean Corpuscular Hemoglobin Concent 33 g/dL (31-37) Red Cell Distribution Width 14.4 % (11.5-14.5) Platelet Count 214 x10^3/uL (140-400) Neutrophils (%) (Auto) 54 % (31-73) Lymphocytes (%) (Auto) 25 % (24-48) Monocytes (%) (Auto) 11 % (0-9) Eosinophils (%) (Auto) 9 % (0-3) Basophils (%) (Auto) 1 % (0-3) Neutrophils # (Auto) 3.9 x10^3uL (1.8-7.7) Lymphocytes # (Auto) 1.7 x10^3/uL (1.0-4.8) Monocytes # (Auto) 0.8 x10^3/uL (0.0-1.1) Eosinophils # (Auto) 0.6 x10^3/uL (0.0-0.7) Basophils # (Auto) 0.1 x10^3/uL (0.0-0.2) Sodium Level 140 mmol/L (136-145) Potassium Level 3.4 mmol/L (3.5-5.1) Chloride Level 104 mmol/L (98-107) Carbon Dioxide Level 30 mmol/L (21-32) Anion Gap 6 (6-14) Blood Urea Nitrogen 13 mg/dL (7-20) Creatinine 0.7 mg/dL (0.6-1.0) Estimated GFR (Cockcroft-Gault) 97.4 Glucose Level 237 mg/dL (70-99) Calcium Level 8.4 mg/dL (8.5-10.1) Magnesium Level 1.5 mg/dL (1.8-2.4) Test 03/31/17 07:51 03/31/17 11:30 Glucose (Fingerstick) 199 mg/dL (70-99) 278 mg/dL (70-99) Laboratory Tests Test 03/30/17 16:47 03/30/17 20:44 03/31/17 04:30 03/31/17 07:51 Glucose (Fingerstick) 240 mg/dL (70-99) 201 mg/dL (70-99) 199 mg/dL (70-99) White Blood Count 7.1 x10^3/uL (4.0-11.0) Red Blood Count 3.89 x10^6/uL (3.50-5.40) Hemoglobin 11.6 g/dL (12.0-15.5) Hematocrit 35.2 % (36.0-47.0) Mean Corpuscular Volume 91 fL (79-100) Mean Corpuscular Hemoglobin 30 pg (25-35) Mean Corpuscular Hemoglobin Concent 33 g/dL (31-37) Red Cell Distribution Width 14.4 % (11.5-14.5) Platelet Count 214 x10^3/uL (140-400) Neutrophils (%) (Auto) 54 % (31-73) Lymphocytes (%) (Auto) 25 % (24-48) Monocytes (%) (Auto) 11 % (0-9) Eosinophils (%) (Auto) 9 % (0-3) Basophils (%) (Auto) 1 % (0-3) Neutrophils # (Auto) 3.9 x10^3uL (1.8-7.7) Lymphocytes # (Auto) 1.7 x10^3/uL (1.0-4.8) Monocytes # (Auto) 0.8 x10^3/uL (0.0-1.1) Eosinophils # (Auto) 0.6 x10^3/uL (0.0-0.7) Basophils # (Auto) 0.1 x10^3/uL (0.0-0.2) Sodium Level 140 mmol/L (136-145) Potassium Level 3.4 mmol/L (3.5-5.1) Chloride Level 104 mmol/L (98-107) Carbon Dioxide Level 30 mmol/L (21-32) Anion Gap 6 (6-14) Blood Urea Nitrogen 13 mg/dL (7-20) Creatinine 0.7 mg/dL (0.6-1.0) Estimated GFR (Cockcroft-Gault) 97.4 Glucose Level 237 mg/dL (70-99) Calcium Level 8.4 mg/dL (8.5-10.1) Magnesium Level 1.5 mg/dL (1.8-2.4) Test 03/31/17 11:30 Glucose (Fingerstick) 278 mg/dL (70-99) Comments cxr reviewed, 1. Catheter placements as described above. 2. No acute infiltrates. 3. Possible tiny left pleural effusion Impression . IMPRESSION: 1. Acute respiratory failure, multifactorial. 2. sepsis. 3. Elevated troponin, non-ST segment elevation myocardial infarction, cath no cad 4. Leukocytosis. 5. Type 2 diabetes. 6. Obesity. jj 7. Copd 8. Cough Plan . D/C IF OK WITH CARD add Roula ortiz D/C SMOKING CURITS KLINE MD Mar 31, 2017 14:20
[2017-03-31 14:37] VITALS: BP 154/72
[2017-03-31] MEDS ORDERED: MAGNESIUM SULFATE 2GM 50 ML IV ONE (16:00)
[2017-03-31] MEDS ORDERED: FUROSEMIDE 40 MG TABLET. PO SCH (16:00)
--- NOTE | 2017-03-31 17:11 | CARD ---
APPROVED REPORT EXAM: LIMITED Two-dimensional echocardiogram. Other Information Quality : Average Rhythm : NSR INDICATION LV Function:Systolic 2D DIMENSIONS Left Atrium(2D)2.6 (1.6-4.0cm)IVSd1.1 (0.7-1.1cm) Aortic Root(2D)2.8 (2.0-3.7cm)LVDd4.0 (3.9-5.9cm) PWd1.1 (0.7-1.1cm)LVDs2.8 (2.5-4.0cm) FS (%) 29.5 %SV39.6 ml LVEF(%)57.0 (>50%) LEFT VENTRICLE The left ventricle is normal size. There is normal left ventricular wall thickness. Left ventricle sy stolic function is normal. The Ejection Fraction is 55-60%. There is normal LV segmental wall motion. RIGHT VENTRICLE The right ventricular systolic function is normal. ATRIA The left atrium size is normal. GREAT VESSELS The aortic root is normal in size. PERICARDIAL EFFUSION There is no evidence of significant pericardial effusion. Critical Notification Critical Value: No <Conclusion> Limited echo to assess LV function. Left ventricle systolic function is normal. The Ejection Fraction is 55-60%. There is normal LV segmental wall motion. There is no evidence of significant pericardial effusion.
[2017-03-31] MEDS: CARVEDILOL 12.5 MG TABLET. PO SCH (17:27)
[2017-03-31 19:15] VITALS: BP 157/67
[2017-03-31] MEDS: ATORVASTATIN CALCIUM 40 MG TABLET. PO SCH (20:45)
[2017-03-31 22:50] VITALS: BP 139/58
[2017-04-01 03:15] VITALS: BP 138/71
[2017-04-01] MEDS: PANTOPRAZOLE 40 MG TABLET.DR. PO SCH (06:11)
[2017-04-01 06:52] LABS: BASO # 0.1 x10^3/uL (0.0-0.2); BASO % 1 % (0-3); EOS % 9 % (0-3); HEMATOCRIT 35.8 % (36.0-47.0); HEMOGLOBIN 11.8 g/dL (12.0-15.5); LYMPH # 2.5 x10^3/uL (1.0-4.8); LYMPH % 34 % (24-48); MEAN CORPUSCULAR HEMOGLOBIN 30 pg (25-35); MEAN CORPUSCULAR HGB CONC 33 g/dL (31-37); MEAN CORPUSCULAR VOLUME 91 fL (79-100); MONO % 12 % (0-9); NEUT % 44 % (31-73); PLATELET COUNT 217 x10^3/uL (140-400); RED BLOOD COUNT 3.96 x10^6/uL (3.50-5.40); RED CELL DISTRIBUTION WIDTH 14.3 % (11.5-14.5); WHITE BLOOD COUNT 7.5 x10^3/uL (4.0-11.0)
[2017-04-01 07:02] LABS: CALCIUM 8.4 mg/dL (8.5-10.1); CREATININE 0.7 mg/dL (0.6-1.0); GFR 97.4; POTASSIUM 3.4 mmol/L (3.5-5.1)
[2017-04-01] MEDS: BUDESONIDE 0.5 MG/2 ML NEBU. NEB SCH (07:40)
[2017-04-01] MEDS: IPRATRPIUM/ALBUTEROL 0.5/2.5MG 3 ML NEBU. NEB SCH ×2 (07:40→11:20)
[2017-04-01 07:52] VITALS: BP 147/65
[2017-04-01] MEDS ORDERED: POTASSIUM CHLORIDE 20 MEQ TABLET.ER. PO SCH (08:00)
[2017-04-01] MEDS ORDERED: ASPIRIN ENTERIC COATED 81 MG TABLET.DR. PO SCH (08:00)
--- NOTE | 2017-04-01 08:37 | RAD ---
Indication: Respiratory failure. Technique: Upright portable chest radiograph was obtained. Comparison is from one day earlier. Findings: Right IJ central line is similarly positioned. Tip is difficult to visualize given overlying leads. The lungs are clear. The cardiopulmonary silhouette is within normal limits. The bony structures are intact. Impression: No active pulmonary disease.
[2017-04-01] MEDS ORDERED: FUROSEMIDE 40 MG TABLET. PO SCH (09:00)
[2017-04-01] MEDS: FLUoxetine HCL 20 MG CAPSULE PO SCH (09:09)
[2017-04-01] MEDS: BENZONATATE 100 MG CAPSULE. PO SCH (09:10)
[2017-04-01] MEDS: CARVEDILOL 12.5 MG TABLET. PO SCH (09:10)
[2017-04-01] MEDS: CEFPODOXIME PROXETIL 100 MG TABLET. PO SCH (09:10)
[2017-04-01] MEDS: LOSARTAN POTASSIUM 50 MG TABLET. PO SCH (09:10)
[2017-04-01] MEDS: INSULIN ASPART 300 UNITS/3 ML INSULN.PEN SQ SCH ×2 (09:15→12:23)
--- NOTE | 2017-04-01 09:30 | PDOC ---
Infectious Disease Note Subjective Subjective Comfortable Hungry ROS ROS GEN: Denies fevers, chills, sweats HEENT: Denies sore throat CV: Denies chest pain RESP: Denies shortness of air, but has occ cough GI: Denies n/v/d NEURO: Denies confusion, dizziness MSK: Denies weakness, joint pain/swelling Vital Sign Vital Signs Vital Signs Date Time Temp Pulse Resp B/P (MAP) Pulse Ox O2 Delivery O2 Flow Rate FiO2 04/01/17 09:10 72 147/65 04/01/17 07:52 97.6 19 97 Nasal Cannula 2.0 97.6 Physical Exam PHYSICAL EXAM GENERAL: Sitting in chair, relaxed appearance, NAD OC/Op - clear LUNGS: Clear HEART: S1 and S2 ABD: Obese, soft, NT, BS active : Mortensen EXT: No edema, no cyanosis [employer] OPERATOR: Alert, oriented SKIN: No rash RI (03/27). clean Labs Lab Laboratory Tests Test 03/31/17 11:30 03/31/17 16:31 03/31/17 20:42 04/01/17 06:25 Glucose (Fingerstick) 278 mg/dL (70-99) 235 mg/dL (70-99) 183 mg/dL (70-99) White Blood Count 7.5 x10^3/uL (4.0-11.0) Red Blood Count 3.96 x10^6/uL (3.50-5.40) Hemoglobin 11.8 g/dL (12.0-15.5) Hematocrit 35.8 % (36.0-47.0) Mean Corpuscular Volume 91 fL (79-100) Mean Corpuscular Hemoglobin 30 pg (25-35) Mean Corpuscular Hemoglobin Concent 33 g/dL (31-37) Red Cell Distribution Width 14.3 % (11.5-14.5) Platelet Count 217 x10^3/uL (140-400) Neutrophils (%) (Auto) 44 % (31-73) Lymphocytes (%) (Auto) 34 % (24-48) Monocytes (%) (Auto) 12 % (0-9) Eosinophils (%) (Auto) 9 % (0-3) Basophils (%) (Auto) 1 % (0-3) Neutrophils # (Auto) 3.3 x10^3uL (1.8-7.7) Lymphocytes # (Auto) 2.5 x10^3/uL (1.0-4.8) Monocytes # (Auto) 0.9 x10^3/uL (0.0-1.1) Eosinophils # (Auto) 0.7 x10^3/uL (0.0-0.7) Basophils # (Auto) 0.1 x10^3/uL (0.0-0.2) Sodium Level 139 mmol/L (136-145) Potassium Level 3.4 mmol/L (3.5-5.1) Chloride Level 102 mmol/L (98-107) Carbon Dioxide Level 31 mmol/L (21-32) Anion Gap 6 (6-14) Blood Urea Nitrogen 13 mg/dL (7-20) Creatinine 0.7 mg/dL (0.6-1.0) Estimated GFR (Cockcroft-Gault) 97.4 Glucose Level 224 mg/dL (70-99) Calcium Level 8.4 mg/dL (8.5-10.1) Test 04/01/17 07:56 Glucose (Fingerstick) 218 mg/dL (70-99) Objective Assessment Sepsis - better Lactic acidosis Respiratory failure s/p extubation, 03/28 Hypoxia - improved Leukocytosis, steroids 03/27 Encephalopathy - improved Cardiomyopathy Enlargement left lobe thyroid gland. TSH 2.138 Sulfa allergy - nausea Plan Plan of Care Cont Cefpodoxime though 04/05 Ok to d/c from ID standpoint DESHAUN HAWLEY MD Apr 01, 2017 09:30
[2017-04-01 10:48] VITALS: BP 142/61
--- NOTE | 2017-04-01 12:20 | PDOC ---
PROGRESS NOTES Chief Complaint Chief Complaint Respiratory failure Hypoxia CHF-Stress induced cardiomyopathy COPD Hypokalemia History of Present Illness History of Present Illness Pt was sitting in a chair and was conversant. She did not appear to be in any distress, however will continue to monitor cardiac function. Vitals Vitals Vital Signs Date Time Temp Pulse Resp B/P (MAP) Pulse Ox O2 Delivery O2 Flow Rate FiO2 04/01/17 11:21 Room Air 04/01/17 10:48 98.0 81 20 142/61 (88) 93 98.0 04/01/17 07:52 2.0 Physical Exam General: Alert, Oriented X3, Cooperative, No acute distress, Other Heart: Regular rate (SR), No murmurs, Other (distant heart sounds) Lungs: Clear Abdomen: Soft, No masses, Other (obese) Extremities: No clubbing, No cyanosis Skin: No rashes, No breakdown, No significant lesion Labs LABS Laboratory Tests Test 03/31/17 16:31 03/31/17 20:42 04/01/17 06:25 04/01/17 07:56 Glucose (Fingerstick) 235 mg/dL (70-99) 183 mg/dL (70-99) 218 mg/dL (70-99) White Blood Count 7.5 x10^3/uL (4.0-11.0) Red Blood Count 3.96 x10^6/uL (3.50-5.40) Hemoglobin 11.8 g/dL (12.0-15.5) Hematocrit 35.8 % (36.0-47.0) Mean Corpuscular Volume 91 fL (79-100) Mean Corpuscular Hemoglobin 30 pg (25-35) Mean Corpuscular Hemoglobin Concent 33 g/dL (31-37) Red Cell Distribution Width 14.3 % (11.5-14.5) Platelet Count 217 x10^3/uL (140-400) Neutrophils (%) (Auto) 44 % (31-73) Lymphocytes (%) (Auto) 34 % (24-48) Monocytes (%) (Auto) 12 % (0-9) Eosinophils (%) (Auto) 9 % (0-3) Basophils (%) (Auto) 1 % (0-3) Neutrophils # (Auto) 3.3 x10^3uL (1.8-7.7) Lymphocytes # (Auto) 2.5 x10^3/uL (1.0-4.8) Monocytes # (Auto) 0.9 x10^3/uL (0.0-1.1) Eosinophils # (Auto) 0.7 x10^3/uL (0.0-0.7) Basophils # (Auto) 0.1 x10^3/uL (0.0-0.2) Sodium Level 139 mmol/L (136-145) Potassium Level 3.4 mmol/L (3.5-5.1) Chloride Level 102 mmol/L (98-107) Carbon Dioxide Level 31 mmol/L (21-32) Anion Gap 6 (6-14) Blood Urea Nitrogen 13 mg/dL (7-20) Creatinine 0.7 mg/dL (0.6-1.0) Estimated GFR (Cockcroft-Gault) 97.4 Glucose Level 224 mg/dL (70-99) Calcium Level 8.4 mg/dL (8.5-10.1) Test 04/01/17 11:18 Glucose (Fingerstick) 251 mg/dL (70-99) Review of Systems Review of Systems fatigue and weakness Assessment and Plan Assessmemt and Plan Problems Medical Problems: (1) COPD (chronic obstructive pulmonary disease) Status: Acute (2) Hypoxia Status: Acute (3) Lactic acidosis Status: Acute (4) Respiratory failure Status: Acute Assessment: Respiratory failure Hypoxia CHF-Stress induced cardiomyopathy COPD Hypokalemia Plan: Continue monitor cardiac function Give potassium Appreciate specialists input Repeat labs Probably discharge if ok with specialists PTOT Problems: Comment Review of Relevant I have reviewed the following items la nena (where applicable) has been applied. Labs Laboratory Tests Test 03/30/17 16:47 03/30/17 20:44 03/31/17 04:30 03/31/17 07:51 Glucose (Fingerstick) 240 mg/dL (70-99) 201 mg/dL (70-99) 199 mg/dL (70-99) White Blood Count 7.1 x10^3/uL (4.0-11.0) Red Blood Count 3.89 x10^6/uL (3.50-5.40) Hemoglobin 11.6 g/dL (12.0-15.5) Hematocrit 35.2 % (36.0-47.0) Mean Corpuscular Volume 91 fL (79-100) Mean Corpuscular Hemoglobin 30 pg (25-35) Mean Corpuscular Hemoglobin Concent 33 g/dL (31-37) Red Cell Distribution Width 14.4 % (11.5-14.5) Platelet Count 214 x10^3/uL (140-400) Neutrophils (%) (Auto) 54 % (31-73) Lymphocytes (%) (Auto) 25 % (24-48) Monocytes (%) (Auto) 11 % (0-9) Eosinophils (%) (Auto) 9 % (0-3) Basophils (%) (Auto) 1 % (0-3) Neutrophils # (Auto) 3.9 x10^3uL (1.8-7.7) Lymphocytes # (Auto) 1.7 x10^3/uL (1.0-4.8) Monocytes # (Auto) 0.8 x10^3/uL (0.0-1.1) Eosinophils # (Auto) 0.6 x10^3/uL (0.0-0.7) Basophils # (Auto) 0.1 x10^3/uL (0.0-0.2) Sodium Level 140 mmol/L (136-145) Potassium Level 3.4 mmol/L (3.5-5.1) Chloride Level 104 mmol/L (98-107) Carbon Dioxide Level 30 mmol/L (21-32) Anion Gap 6 (6-14) Blood Urea Nitrogen 13 mg/dL (7-20) Creatinine 0.7 mg/dL (0.6-1.0) Estimated GFR (Cockcroft-Gault) 97.4 Glucose Level 237 mg/dL (70-99) Calcium Level 8.4 mg/dL (8.5-10.1) Magnesium Level 1.5 mg/dL (1.8-2.4) Test 03/31/17 11:30 03/31/17 16:31 03/31/17 20:42 04/01/17 06:25 Glucose (Fingerstick) 278 mg/dL (70-99) 235 mg/dL (70-99) 183 mg/dL (70-99) White Blood Count 7.5 x10^3/uL (4.0-11.0) Red Blood Count 3.96 x10^6/uL (3.50-5.40) Hemoglobin 11.8 g/dL (12.0-15.5) Hematocrit 35.8 % (36.0-47.0) Mean Corpuscular Volume 91 fL (79-100) Mean Corpuscular Hemoglobin 30 pg (25-35) Mean Corpuscular Hemoglobin Concent 33 g/dL (31-37) Red Cell Distribution Width 14.3 % (11.5-14.5) Platelet Count 217 x10^3/uL (140-400) Neutrophils (%) (Auto) 44 % (31-73) Lymphocytes (%) (Auto) 34 % (24-48) Monocytes (%) (Auto) 12 % (0-9) Eosinophils (%) (Auto) 9 % (0-3) Basophils (%) (Auto) 1 % (0-3) Neutrophils # (Auto) 3.3 x10^3uL (1.8-7.7) Lymphocytes # (Auto) 2.5 x10^3/uL (1.0-4.8) Monocytes # (Auto) 0.9 x10^3/uL (0.0-1.1) Eosinophils # (Auto) 0.7 x10^3/uL (0.0-0.7) Basophils # (Auto) 0.1 x10^3/uL (0.0-0.2) Sodium Level 139 mmol/L (136-145) Potassium Level 3.4 mmol/L (3.5-5.1) Chloride Level 102 mmol/L (98-107) Carbon Dioxide Level 31 mmol/L (21-32) Anion Gap 6 (6-14) Blood Urea Nitrogen 13 mg/dL (7-20) Creatinine 0.7 mg/dL (0.6-1.0) Estimated GFR (Cockcroft-Gault) 97.4 Glucose Level 224 mg/dL (70-99) Calcium Level 8.4 mg/dL (8.5-10.1) Test 04/01/17 07:56 04/01/17 11:18 Glucose (Fingerstick) 218 mg/dL (70-99) 251 mg/dL (70-99) Laboratory Tests Test 03/31/17 16:31 03/31/17 20:42 04/01/17 06:25 04/01/17 07:56 Glucose (Fingerstick) 235 mg/dL (70-99) 183 mg/dL (70-99) 218 mg/dL (70-99) White Blood Count 7.5 x10^3/uL (4.0-11.0) Red Blood Count 3.96 x10^6/uL (3.50-5.40) Hemoglobin 11.8 g/dL (12.0-15.5) Hematocrit 35.8 % (36.0-47.0) Mean Corpuscular Volume 91 fL (79-100) Mean Corpuscular Hemoglobin 30 pg (25-35) Mean Corpuscular Hemoglobin Concent 33 g/dL (31-37) Red Cell Distribution Width 14.3 % (11.5-14.5) Platelet Count 217 x10^3/uL (140-400) Neutrophils (%) (Auto) 44 % (31-73) Lymphocytes (%) (Auto) 34 % (24-48) Monocytes (%) (Auto) 12 % (0-9) Eosinophils (%) (Auto) 9 % (0-3) Basophils (%) (Auto) 1 % (0-3) Neutrophils # (Auto) 3.3 x10^3uL (1.8-7.7) Lymphocytes # (Auto) 2.5 x10^3/uL (1.0-4.8) Monocytes # (Auto) 0.9 x10^3/uL (0.0-1.1) Eosinophils # (Auto) 0.7 x10^3/uL (0.0-0.7) Basophils # (Auto) 0.1 x10^3/uL (0.0-0.2) Sodium Level 139 mmol/L (136-145) Potassium Level 3.4 mmol/L (3.5-5.1) Chloride Level 102 mmol/L (98-107) Carbon Dioxide Level 31 mmol/L (21-32) Anion Gap 6 (6-14) Blood Urea Nitrogen 13 mg/dL (7-20) Creatinine 0.7 mg/dL (0.6-1.0) Estimated GFR (Cockcroft-Gault) 97.4 Glucose Level 224 mg/dL (70-99) Calcium Level 8.4 mg/dL (8.5-10.1) Test 04/01/17 11:18 Glucose (Fingerstick) 251 mg/dL (70-99) Microbiology 03/26/17 Blood Culture - Final, Complete NO GROWTH AFTER 5 DAYS 03/27/17 Urine Culture - Final, Complete 03/27/17 Urine Culture Result 1 ([facility]) - Final, Complete Medications Current Medications Propofol (Diprivan) 200 mg 1X ONCE IV ; Start 03/27/17 at 00:15; Stop at 00:16; Status DC Fentanyl Citrate 30 ml @ 0 mls/hr CONT PRN PRN IV PROTOCOL; Start 03/26/17 at 23:30; Stop 03/30/17 at 07:37; Status DC Propofol (Diprivan) 200 mg 1X ONCE IV ; Start 03/27/17 at 00:15; Stop at 00:16; Status DC Midazolam HCl (Versed) 5 mg STK-MED ONCE .ROUTE ; Start 03/27/17 at 00:13; Stop 03/27/17 at 00:14; Status DC Propofol 50 ml @ As Directed STK-MED ONCE IV ; Start 03/27/17 at 00:14; Stop 03/27/17 at 00:15; Status DC Propofol 50 ml @ As Directed STK-MED ONCE IV ; Start 03/27/17 at 01:51; Stop 03/27/17 at 01:52; Status DC Propofol 50 ml @ 0 mls/hr 1X ONCE IV Last administered on 03/27/17 00:19; Start 03/27/17 at 02:00; Stop 03/27/17 at 02:01; Status DC Propofol 50 ml @ 0 mls/hr 1X ONCE IV Last administered on 03/27/17 01:13; Start 03/27/17 at 02:00; Stop 03/27/17 at 02:01; Status DC Ondansetron HCl (Zofran) 4 mg PRN Q8HRS PRN IV NAUSEA/VOMITING; Start at 02:15; Stop 03/28/17 at 02:14; Status DC Albuterol/ Ipratropium (Duoneb) 3 ml RTQID NEB Last administered on 03/27/17 19:43; Start 03/27/17 at 02:30; Stop 03/28/17 at 02:29; Status DC Insulin Aspart (NovoLOG) 0-5 UNITS TIDWMEALS SQ Last administered on 09:15; Start 03/27/17 at 08:00 Dextrose (Dextrose 50%-Water Syringe) 12.5 gm PRN Q15MIN PRN IV SEE COMMENTS; Start 03/27/17 at 02:15 Methylprednisolone Sodium Succinate (SOLU-Medrol 125MG VIAL) 125 mg 1X ONCE IV ; Start 03/27/17 at 02:30; Stop 03/27/17 at 02:31; Status DC Cefepime HCl 2 gm/ Sodium Chloride 100 ml @ 200 mls/hr 1X ONCE IV Last administered on 03/27/17 02:45; Start 03/27/17 at 02:30; Stop 03/27/17 at 02 :59; Status DC Vancomycin HCl (Vanco Per Pharmacy) 1 each PRN DAILY PRN MC SEE COMMENTS Last administered on 03/30/17 07:45; Start 03/27/17 at 02:15; Stop 03/30/17 at 13 :32; Status DC Sodium Chloride 1,000 ml @ 50 mls/hr Q20H IV Last administered on 03/28/17 18:28; Start 03/27/17 at 02:15; Stop 03/29/17 at 16:12; Status DC Sodium Chloride 1,000 ml @ 1,000 mls/hr 1X ONCE IV Last administered on 03/27 02:51; Start 03/27/17 at 03:00; Stop 03/27/17 at 03:59; Status DC Propofol 100 ml @ 0 mls/hr CONT PRN IV SEE I/O RECORD Last administered on 05:16; Start 03/27/17 at 03:00; Stop 03/30/17 at 07:37; Status DC Vancomycin HCl 2 gm/Sodium Chloride 500 ml @ 250 mls/hr 1X ONCE IV Last administered on 03/27/17 04:30; Start 03/27/17 at 03:30; Stop 03/27/17 at 05 :29; Status DC Info (Do NOT chart on this placeholder) 1 each PRN DAILY PRN MC UNABLE TO RESPOND; Start 03/27/17 at 03:15; Status Cancel Pneumococcal Polyvalent Vaccine (Do NOT chart on this placeholder) 1 each PRN DAILY PRN MC UNABLE TO RESPOND; Start 03/27/17 at 03:15; Status Cancel Cefepime HCl 2 gm/ Sodium Chloride 100 ml @ 200 mls/hr Q12HR IV Last administered on 03/30/17 21:19; Start 03/27/17 at 09:00; Stop 03/31/17 at 07 :11; Status DC Etomidate (Amidate) 20 mg STK-MED ONCE IV ; Start 03/27/17 at 05:29; Stop 06/01 at 05:30; Status DC Vecuronium [place] (Norcuron Bolus) 10 mg STK-MED ONCE IV ; Start 03/27/17 at 05:29; Stop 03/27/17 at 05:30; Status DC Vancomycin HCl 1.5 gm/Sodium Chloride 500 ml @ 250 mls/hr Q24H IV Last administered on 03/28/17 05:17; Start 03/28/17 at 05:00; Stop 03/29/17 at 05 :16; Status DC Vancomycin HCl 1 each 1X ONCE MC Last administered on 03/29/17 04:30; Start 03/29/17 at 04:30; Stop 03/29/17 at 04:31; Status DC Heparin Sodium/ Dextrose 500 ml @ 20 mls/hr CONT PRN IV SEE I/O RECORD Last administered on 03/27/17 10:19; Start 03/27/17 at 09:15; Stop 03/27/17 at 23 :10; Status DC Heparin Sodium (Porcine) (Heparin Sodium) 2,650 unit PRN Q6HRS PRN IV FOR UFH LEVEL LESS THAN 0.2 Last administered on 03/27/17 10:13; Start 03/27/17 at 09 :15; Stop 03/27/17 at 23:10; Status DC Lidocaine/Sodium Bicarbonate (Buffered Lidocaine 1%) 20 ml STK-MED ONCE IJ ; Start 03/27/17 at 10:50; Stop 03/27/17 at 10:51; Status DC Heparin Sodium/ Sodium Chloride 500 ml @ As Directed STK-MED ONCE .ROUTE ; Start 03/27/17 at 10:50; Stop 03/27/17 at 10:51; Status DC Lidocaine/Sodium Bicarbonate (Buffered Lidocaine 1%) 3 ml 1X ONCE IJ Last administered on 03/27/17 11:28; Start 03/27/17 at 11:00; Stop 03/27/17 at 11 :01; Status DC Heparin Sodium/ Sodium Chloride 60 unit 1X ONCE IV Last administered on 11:28; Start 03/27/17 at 11:00; Stop 03/27/17 at 11:01; Status DC Aspirin (Children'S Aspirin) 81 mg [id number] PO Last administered on 09:23; Start 03/27/17 at 12:00; Stop 03/31/17 at 13:36; Status DC Labetalol HCl (Normodyne) 20 mg PRN Q2HR PRN IVP HYPERTENSION, SEE COMMENTS Last administered on 03/28/17 05:33; Start 03/27/17 at 10:45 Furosemide (Lasix) 40 mg [id number] IVP Last administered on 03/28/17 08:38; Start 03/27/17 at 14:00; Stop 03/28/17 at 11:59; Status DC Magnesium Sulfate/ Dextrose 50 ml @ 25 mls/hr 1X ONCE IV Last administered on 03/27/17 14:58; Start 03/27/17 at 13:45; Stop 03/27/17 at 15:44; Status DC Atorvastatin Calcium (Lipitor) 20 mg QHS PO Last administered on 03/31/17 20: 45; Start 03/27/17 at 21:00 Iohexol (Omnipaque 300 Mg/ml) 100 ml STK-MED ONCE .ROUTE ; Start 03/27/17 at 15 :00; Stop 03/27/17 at 15:01; Status DC Lidocaine HCl 20 ml STK-MED ONCE .ROUTE ; Start 03/27/17 at 15:00; Stop at 15:01; Status DC Heparin Sodium/ Sodium Chloride 1,000 ml @ As Directed STK-MED ONCE .ROUTE ; Start 03/27/17 at 15:01; Stop 03/27/17 at 15:02; Status DC Methylprednisolone Sodium Succinate (SOLU-Medrol 125MG VIAL) 125 mg STK-MED ONCE .ROUTE ; Start 03/27/17 at 15:29; Stop 03/27/17 at 15:30; Status DC Famotidine (Pepcid) 20 mg STK-MED ONCE .ROUTE ; Start 03/27/17 at 15:29; Stop 03/27/17 at 15:30; Status DC Diphenhydramine HCl (Benadryl) 50 mg STK-MED ONCE .ROUTE ; Start 03/27/17 at 15 :30; Stop 03/27/17 at 15:31; Status DC Hydralazine HCl (Apresoline Inj) 20 mg STK-MED ONCE .ROUTE ; Start 03/27/17 at 15:50; Stop 03/27/17 at 15:51; Status DC Heparin Sodium/ Sodium Chloride 1,000 unit 1X ONCE IART Last administered on 03/27/17 16:00; Start 03/27/17 at 16:00; Stop 03/27/17 at 16:06; Status DC Iohexol (Omnipaque 300 Mg/ml) 94 ml 1X ONCE IART Last administered on 16:00; Start 03/27/17 at 16:00; Stop 03/27/17 at 16:06; Status DC Lidocaine HCl 20 ml 1X ONCE IJ Last administered on 03/27/17 16:00; Start 03/27/17 at 16:00; Stop 03/27/17 at 16:06; Status DC Hydralazine HCl (Apresoline Inj) 10 mg 1X ONCE IVP Last administered on 16:00; Start 03/27/17 at 16:00; Stop 03/27/17 at 16:06; Status DC Diphenhydramine HCl (Benadryl) 50 mg 1X ONCE IVP Last administered on 16:00; Start 03/27/17 at 16:00; Stop 03/27/17 at 16:06; Status DC Methylprednisolone Sodium Succinate (SOLU-Medrol 125MG VIAL) 125 mg 1X ONCE IV Last administered on 03/27/17 16:00; Start 03/27/17 at 16:00; Stop at 16:06; Status DC Famotidine (Pepcid) 20 mg 1X ONCE IVP Last administered on 03/27/17 16:00; Start 03/27/17 at 16:00; Stop 03/27/17 at 16:06; Status DC Info (Do NOT chart on this entry -- for MONITORING) 1 each PRN DAILY PRN MC SEE COMMENTS; Start 03/27/17 at 16:15; Stop 03/29/17 at 16:14; Status DC Potassium Chloride 50 ml @ 50 mls/hr Q1H IV Last administered on 03/28/17 09: 30; Start 03/28/17 at 08:30; Stop 03/28/17 at 10:29; Status DC Carvedilol (Coreg) 6.25 mg BIDWMEALS PO Last administered on 03/28/17 08:36; Start 03/28/17 at 08:30; Stop 03/28/17 at 11:56; Status DC Potassium Chloride (Klor-Con) 40 meq 1X ONCE PO Last administered on 08:37; Start 03/28/17 at 08:30; Stop 03/28/17 at 08:31; Status DC Losartan Potassium (Cozaar) 50 mg DAILY PO Last administered on 03/28/17 08: 37; Start 03/28/17 at 09:00; Stop 03/28/17 at 11:56; Status DC Pantoprazole Sodium (Protonix) 40 mg DAILYAC PO Last administered on 06:11; Start 03/28/17 at 08:30 Carvedilol (Coreg) 6.25 mg BIDWMEALS PO Last administered on 03/31/17 09:22; Start 03/29/17 at 17:00; Stop 03/31/17 at 13:34; Status DC Losartan Potassium (Cozaar) 50 mg DAILY PO Last administered on 04/01/17 09: 10; Start 03/30/17 at 09:00 Metoprolol Tartrate (Lopressor) 5 mg Q6HRS IVP Last administered on 03/29/17 12:07; Start 03/28/17 at 12:00; Stop 03/29/17 at 13:00; Status DC Enalaprilat (Vasotec) 1.25 mg Q6HRS IV Last administered on 03/29/17 12:07; Start 03/28/17 at 12:00; Stop 03/29/17 at 13:00; Status DC Furosemide (Lasix) 40 mg DAILY IVP Last administered on 03/31/17 09:23; Start 03/29/17 at 09:00; Stop 03/31/17 at 13:34; Status DC Albuterol/ Ipratropium (Duoneb) 3 ml RTQID NEB Last administered on 04/01/17 11:20; Start 03/28/17 at 14:00 Budesonide (Pulmicort) 0.5 mg RTBID NEB Last administered on 04/01/17 07:40; Start 03/28/17 at 14:00 Furosemide (Lasix) 40 mg 1X ONCE IVP Last administered on 03/29/17 00:26; Start 03/29/17 at 00:30; Stop 03/29/17 at 00:31; Status DC Albuterol/ Ipratropium (Duoneb) 3 ml 1X ONCE NEB Last administered on 00:26; Start 03/29/17 at 00:30; Stop 03/29/17 at 00:31; Status DC Vancomycin HCl 1.5 gm/Sodium Chloride 500 ml @ 250 mls/hr Q18H IV Last administered on 03/29/17 23:10; Start 03/29/17 at 06:00; Stop 03/30/17 at 13 :32; Status DC Vancomycin HCl 1 each 1X ONCE MC ; Start 03/31/17 at 11:30; Stop 03/31/17 at 11:31; Status Cancel Potassium Chloride 50 ml @ 50 mls/hr Q1H IV Last administered on 03/29/17 10: 00; Start 03/29/17 at 09:00; Stop 03/29/17 at 10:59; Status DC Fluoxetine HCl (PROzac) 20 mg DAILY PO Last administered on 04/01/17 09:09; Start 03/29/17 at 12:00 Benzonatate (Tessalon Perle) 100 mg [id number] PO Last administered on 04/01/17 09:10; Start 03/30/17 at 21:00 Cefpodoxime Proxetil (Vantin) 200 mg BID PO Last administered on 04/01/17 09: 10; Start 03/31/17 at 09:00 Carvedilol (Coreg) 12.5 mg BIDWMEALS PO Last administered on 04/01/17 09:10; Start 03/31/17 at 17:00 Potassium Chloride (Klor-Con) 40 meq 1X ONCE PO Last administered on 15:45; Start 03/31/17 at 13:45; Stop 03/31/17 at 13:46; Status DC Potassium Chloride (Klor-Con) 20 meq DAILYWBKFT PO Last administered on 09:09; Start 04/01/17 at 08:00 Furosemide (Lasix) 40 mg [id number] PO Last administered on 03/31/17 15:45; Start 03/31/17 at 16:00; Stop 04/01/17 at 08:57; Status DC Aspirin (Ecotrin) 81 mg DAILYWBKFT PO Last administered on 04/01/17 09:25; Start 04/01/17 at 08:00 Magnesium Sulfate/ Dextrose 50 ml @ 25 mls/hr 1X ONCE IV Last administered on 03/31/17 15:46; Start 03/31/17 at 16:00; Stop 03/31/17 at 17:59; Status DC Furosemide (Lasix) 40 mg DAILY PO Last administered on 04/01/17 09:09; Start 04/01/17 at 09:00 Vitals/I & O Vital Sign - Last 24 Hours 03/31/17 03/31/17 03/31/17 03/31/17 14:37 15:59 16:00 17:27 Temp 97.4 97.4 Pulse 72 89 Resp 20 B/P (MAP) 154/72 (99) 154/72 Pulse Ox 96 O2 Delivery Room Air Room Air Room Air 03/31/17 03/31/17 03/31/17 03/31/17 19:15 19:40 19:42 20:00 Temp 97.7 97.7 Pulse 78 Resp 20 B/P (MAP) 157/67 (97) Pulse Ox 94 95 95 O2 Delivery Room Air Room Air Room Air Room Air 03/31/17 04/01/17 04/01/17 04/01/17 22:50 03:15 07:43 07:43 Temp 98.1 98.3 98.1 98.3 Pulse 71 77 Resp 20 18 B/P (MAP) 139/58 (85) 138/71 (93) Pulse Ox 94 94 98 98 O2 Delivery Room Air Room Air Room Air Room Air 10/17/17 10/17/17 10/17/17 10/17/17 07:52 09:10 09:10 10:48 Temp 97.6 98.0 97.6 98.0 Pulse 72 72 72 81 Resp 19 20 B/P (MAP) 147/65 (92) 147/65 147/65 142/61 (88) Pulse Ox 97 93 O2 Delivery Nasal Cannula Room Air O2 Flow Rate 2.0 04/01/17 11:21 O2 Delivery Room Air DICK CHAMBERLAIN III DO Apr 01, 2017 12:20
[2017-04-01] MEDS ORDERED: POTASSIUM CHLORIDE 20 MEQ TABLET.ER. PO ONE (12:45)
[2017-04-01 14:28] VITALS: BP 145/73
[2017-04-01] MEDS ORDERED: ASPI-482 PO (14:38)
[2017-04-01] MEDS ORDERED: CARV12.5 PO (14:39)
[2017-04-01] MEDS ORDERED: ATOR40TA59 PO (14:39)
[2017-04-01] MEDS ORDERED: CEFP200T PO (14:40)
[2017-04-01] MEDS ORDERED: FLUO20CA8 PO (14:40)
[2017-04-01] MEDS ORDERED: FURO-68 PO (14:41)
[2017-04-01] MEDS ORDERED: POTA20TA82 PO (14:42)
[2017-04-01] MEDS ORDERED: LOSA50TA6 PO (14:42)
--- NOTE | 2017-04-01 16:28 | PDOC ---
PULMONARY PROGRESS NOTES Subjective PT WITH COUGH DENIES SOA Vitals Vital Signs Date Time Temp Pulse Resp B/P (MAP) Pulse Ox O2 Delivery O2 Flow Rate FiO2 04/01/17 14:28 97.8 77 21 145/73 (97) 93 Room Air 97.8 04/01/17 07:52 2.0 ROS: No Nausea, No Chest Pain, No Abdominal Pain General: Alert, Oriented X4 HEENT: Other (nc at perrl. nose throat clear neck no lap, no thyromegaly) Lungs: Clear Cardiovascular: S1, S2 Abdomen: Soft, Non-tender, Other (no mass) Neuro Exam: Alert Extremities: Other (edema) Skin: Warm Labs Laboratory Tests Test 03/30/17 16:47 03/30/17 20:44 03/31/17 04:30 03/31/17 07:51 Glucose (Fingerstick) 240 mg/dL (70-99) 201 mg/dL (70-99) 199 mg/dL (70-99) White Blood Count 7.1 x10^3/uL (4.0-11.0) Red Blood Count 3.89 x10^6/uL (3.50-5.40) Hemoglobin 11.6 g/dL (12.0-15.5) Hematocrit 35.2 % (36.0-47.0) Mean Corpuscular Volume 91 fL (79-100) Mean Corpuscular Hemoglobin 30 pg (25-35) Mean Corpuscular Hemoglobin Concent 33 g/dL (31-37) Red Cell Distribution Width 14.4 % (11.5-14.5) Platelet Count 214 x10^3/uL (140-400) Neutrophils (%) (Auto) 54 % (31-73) Lymphocytes (%) (Auto) 25 % (24-48) Monocytes (%) (Auto) 11 % (0-9) Eosinophils (%) (Auto) 9 % (0-3) Basophils (%) (Auto) 1 % (0-3) Neutrophils # (Auto) 3.9 x10^3uL (1.8-7.7) Lymphocytes # (Auto) 1.7 x10^3/uL (1.0-4.8) Monocytes # (Auto) 0.8 x10^3/uL (0.0-1.1) Eosinophils # (Auto) 0.6 x10^3/uL (0.0-0.7) Basophils # (Auto) 0.1 x10^3/uL (0.0-0.2) Sodium Level 140 mmol/L (136-145) Potassium Level 3.4 mmol/L (3.5-5.1) Chloride Level 104 mmol/L (98-107) Carbon Dioxide Level 30 mmol/L (21-32) Anion Gap 6 (6-14) Blood Urea Nitrogen 13 mg/dL (7-20) Creatinine 0.7 mg/dL (0.6-1.0) Estimated GFR (Cockcroft-Gault) 97.4 Glucose Level 237 mg/dL (70-99) Calcium Level 8.4 mg/dL (8.5-10.1) Magnesium Level 1.5 mg/dL (1.8-2.4) Test 03/31/17 11:30 03/31/17 16:31 03/31/17 20:42 04/01/17 06:25 Glucose (Fingerstick) 278 mg/dL (70-99) 235 mg/dL (70-99) 183 mg/dL (70-99) White Blood Count 7.5 x10^3/uL (4.0-11.0) Red Blood Count 3.96 x10^6/uL (3.50-5.40) Hemoglobin 11.8 g/dL (12.0-15.5) Hematocrit 35.8 % (36.0-47.0) Mean Corpuscular Volume 91 fL (79-100) Mean Corpuscular Hemoglobin 30 pg (25-35) Mean Corpuscular Hemoglobin Concent 33 g/dL (31-37) Red Cell Distribution Width 14.3 % (11.5-14.5) Platelet Count 217 x10^3/uL (140-400) Neutrophils (%) (Auto) 44 % (31-73) Lymphocytes (%) (Auto) 34 % (24-48) Monocytes (%) (Auto) 12 % (0-9) Eosinophils (%) (Auto) 9 % (0-3) Basophils (%) (Auto) 1 % (0-3) Neutrophils # (Auto) 3.3 x10^3uL (1.8-7.7) Lymphocytes # (Auto) 2.5 x10^3/uL (1.0-4.8) Monocytes # (Auto) 0.9 x10^3/uL (0.0-1.1) Eosinophils # (Auto) 0.7 x10^3/uL (0.0-0.7) Basophils # (Auto) 0.1 x10^3/uL (0.0-0.2) Sodium Level 139 mmol/L (136-145) Potassium Level 3.4 mmol/L (3.5-5.1) Chloride Level 102 mmol/L (98-107) Carbon Dioxide Level 31 mmol/L (21-32) Anion Gap 6 (6-14) Blood Urea Nitrogen 13 mg/dL (7-20) Creatinine 0.7 mg/dL (0.6-1.0) Estimated GFR (Cockcroft-Gault) 97.4 Glucose Level 224 mg/dL (70-99) Calcium Level 8.4 mg/dL (8.5-10.1) Test 04/01/17 07:56 04/01/17 11:18 Glucose (Fingerstick) 218 mg/dL (70-99) 251 mg/dL (70-99) Laboratory Tests Test 03/31/17 16:31 03/31/17 20:42 04/01/17 06:25 04/01/17 07:56 Glucose (Fingerstick) 235 mg/dL (70-99) 183 mg/dL (70-99) 218 mg/dL (70-99) White Blood Count 7.5 x10^3/uL (4.0-11.0) Red Blood Count 3.96 x10^6/uL (3.50-5.40) Hemoglobin 11.8 g/dL (12.0-15.5) Hematocrit 35.8 % (36.0-47.0) Mean Corpuscular Volume 91 fL (79-100) Mean Corpuscular Hemoglobin 30 pg (25-35) Mean Corpuscular Hemoglobin Concent 33 g/dL (31-37) Red Cell Distribution Width 14.3 % (11.5-14.5) Platelet Count 217 x10^3/uL (140-400) Neutrophils (%) (Auto) 44 % (31-73) Lymphocytes (%) (Auto) 34 % (24-48) Monocytes (%) (Auto) 12 % (0-9) Eosinophils (%) (Auto) 9 % (0-3) Basophils (%) (Auto) 1 % (0-3) Neutrophils # (Auto) 3.3 x10^3uL (1.8-7.7) Lymphocytes # (Auto) 2.5 x10^3/uL (1.0-4.8) Monocytes # (Auto) 0.9 x10^3/uL (0.0-1.1) Eosinophils # (Auto) 0.7 x10^3/uL (0.0-0.7) Basophils # (Auto) 0.1 x10^3/uL (0.0-0.2) Sodium Level 139 mmol/L (136-145) Potassium Level 3.4 mmol/L (3.5-5.1) Chloride Level 102 mmol/L (98-107) Carbon Dioxide Level 31 mmol/L (21-32) Anion Gap 6 (6-14) Blood Urea Nitrogen 13 mg/dL (7-20) Creatinine 0.7 mg/dL (0.6-1.0) Estimated GFR (Cockcroft-Gault) 97.4 Glucose Level 224 mg/dL (70-99) Calcium Level 8.4 mg/dL (8.5-10.1) Test 04/01/17 11:18 Glucose (Fingerstick) 251 mg/dL (70-99) Medications Active Scripts Medications Dose Route/Sig Max Daily Dose Days Date Category Potassium Chloride 20 Meq Tablet.er 20 Meq PO DAILY 04/01/17 Reported Losartan Potassium 50 Mg Tablet 50 Mg PO DAILY 04/01/17 Reported Lasix (Furosemide) 40 Mg Tablet 1 Tab PO DAILY 04/01/17 Reported Fluoxetine Hcl 20 Mg Capsule 1 Cap PO DAILY 04/01/17 Reported Cefpodoxime Proxetil 200 Mg Tablet 1 Tab PO BID 04/01/17 Reported Coreg (Carvedilol) 12.5 Mg Tablet 1 Tab PO BID 04/01/17 Reported Atorvastatin Calcium 40 Mg Tablet 1 Tab PO QHS 04/01/17 Reported Aspir 81 (Aspirin) 81 Mg Tablet. 1 Tab PO DAILY 04/01/17 Reported Comments cxr reviewed, 1. Catheter placements as described above. 2. No acute infiltrates. 3. Possible tiny left pleural effusion Impression . IMPRESSION: 1. Acute respiratory failure, multifactorial. 2. sepsis. 3. Elevated troponin, non-ST segment elevation myocardial infarction, cath no cad 4. Leukocytosis. 5. Type 2 diabetes. 6. Obesity. jj 7. Copd 8. Cough Plan . D/C IF OK WITH CARD add Roula ortiz D/C SMOKING follow up with me in office in [place] Espinal MD Apr 01, 2017 16:28
--- NOTE | 2017-04-03 13:43 | DS ---
DATE OF DISCHARGE: 04/01/2017 ADMISSION DIAGNOSIS: Respiratory failure. DISCHARGE DIAGNOSES: Stress cardiomyopathy, resolving respiratory failure, obesity, congestive heart failure. HOSPITAL COURSE: The patient is a pleasant 82-year-old female who presented with fulminant respiratory failure. She had to be intubated and admitted to the ICU. We did an echo, which showed apical ballooning consistent with stress cardiomyopathy. We eventually did get her extubated. We sent to her to the medical floor. She did well. We gave her breathing treatments and oxygen. We did have Pulmonary and Cardiology involved. Basically, she has done well. We plan to discharge with close outpatient followup. DISPOSITION: Home. ACTIVITY: As tolerated. DIET: Low sodium. MEDICATIONS: Please see the MRAD. TOTAL TIME ON DISCHARGE: 36 minutes. DICK CHAMBERLAIN DO DR: JUAN CARLOS/khloe JOB#: [id number] / [id number]
== END 2017-04-01 16:42 | disposition home or self-care (01) | DRG 871 ==
LOC: ER 23:04 → 1 WEST ICU 03-27 00:48 → EDBD 03-27 00:48 → 2 NORTH 03-29 16:41
PROVIDERS: ADMIT Internal Medicine Hematology & Oncology; ATTEND Internal Medicine Hematology & Oncology
PROC: 5A1945Z Respiratory Ventilation, 24-96 Consecutive Hours (ICD-10-PCS; principal; 2017-03-27)
PROC: 0BH17EZ Insertion of Endotracheal Airway into Trachea, Via Natural or Artificial Opening (ICD-10-PCS; 2017-03-27)
PROC: BT041ZZ Plain Radiography of Kidneys, Ureters and Bladder using Low Osmolar Contrast (ICD-10-PCS; 2017-03-27)
PROC: 02HV33Z Insertion of Infusion Device into Superior Vena Cava, Percutaneous Approach (ICD-10-PCS; 2017-03-27)
PROC: B548ZZA Ultrasonography of Superior Vena Cava, Guidance (ICD-10-PCS; 2017-03-27)
PROC: 4A023N7 Measurement of Cardiac Sampling and Pressure, Left Heart, Percutaneous Approach (ICD-10-PCS; 2017-03-29)
PROC: B2111ZZ Fluoroscopy of Multiple Coronary Arteries using Low Osmolar Contrast (ICD-10-PCS; 2017-03-29)
PROC: B2151ZZ Fluoroscopy of Left Heart using Low Osmolar Contrast (ICD-10-PCS; 2017-03-29)
PROC: 5A09357 Assistance with Respiratory Ventilation, Less than 24 Consecutive Hours, Continuous Positive Airway Pressure (ICD-10-PCS; 2017-03-29)
DX: A41.9 Sepsis, unspecified organism (principal); J96.01 Acute respiratory failure with hypoxia; I21.4 Non-ST elevation (NSTEMI) myocardial infarction; G93.40 Encephalopathy, unspecified; I50.43 Acute on chronic combined systolic (congestive) and diastolic (congestive) heart failure; I42.9 Cardiomyopathy, unspecified; Z68.41 Body mass index [BMI] 40.0-44.9, adult; J98.11 Atelectasis; J44.9 Chronic obstructive pulmonary disease, unspecified; M19.90 Unspecified osteoarthritis, unspecified site; E66.9 Obesity, unspecified; E11.21 Type 2 diabetes mellitus with diabetic nephropathy; E87.6 Hypokalemia; F17.200 Nicotine dependence, unspecified, uncomplicated; F32.9 Major depressive disorder, single episode, unspecified; G47.33 Obstructive sleep apnea (adult) (pediatric); I11.0 Hypertensive heart disease with heart failure; Z82.49 Family history of ischemic heart disease and other diseases of the circulatory system; Z88.2 Allergy status to sulfonamides; Z91.041 Radiographic dye allergy status; Z88.8 Allergy status to other drugs, medicaments and biological substances
CPT/HCPCS: 31500; 36415; 36556; 36600; 51702; 70450; 71010; 71250; 74000; 74176; 76937; 80048; 80053; 80061; 80202; 80307; 81001; 82805; 82962; 83036; 83605; 83735; 83880; 84443; 84484; 85007; 85025; 87040; 87086; 87641; 87804; 93005; 93306; 93308; 93458; 94002; 94003; 94250; 94640; 94660; 94760; 99406; C1769; C1771; C1892; G0269; J0360; J0692; J1200; J1644; J1815; J1940; J2704; J2930; J3370; J3480; J3490; J7030; J7040; J7060; J7620; J7626; Q9967; S0028; 97110; 97116; 97535; 99291-25; G0479; J2001